=== PATIENT | female | born 1955 | race Caucasian/White ===

== ENCOUNTER 2023-01-21 13:13 | Inpatient (IN) | payer MEDICARE, SELFPAY ==
--- NOTE | ~2023-01-21 | XR_ITS ---
EXAMINATION: XR foot RT min 3V DATE: 01/21/2023 14:44 INDICATION: Right third toe pain. TECHNIQUE: 4 views of right foot were obtained. COMPARISON: None. FINDINGS: There is moderate hallux valgus. No fracture. There is moderate osteoarthritis of first met atarsophalangeal joint and mild to moderate osteoarthritis of some of the interphalangeal joints and midfoot joints. There are erosions of third distal phalanx. There are erosions of medial aspect of he ad of first metatarsal and medial aspect of navicular. There are enthesophytes at posterior and plant ar aspects of calcaneal tuberosity. There is soft tissue swelling of the foot. IMPRESSION: 1. Erosions of third distal phalanx, which may be osteomyelitis or gout. 2. Erosions of head of first metatarsal and medial navicular suspicious for gout. Correlate with phys ical exam for any skin disruption to suggest osteomyelitis. 3. Polyarticular osteoarthritis. 4. Moderate hallux valgus. Reviewed, dictated and finalized at location A. IMPRESSION: 1. Erosions of third distal phalanx, which may be osteomyelitis or gout. 2. Erosions of head of first metatarsal and medial navicular suspicious for gou t. Correlate with physical exam for any skin disruption to suggest osteomyeliti s. 3. Polyarticular osteoarthritis. 4. Moderate hallux valgus.
[2023-01-21 13:18] VITALS: BP 160/50; PULSE 80; RESP 18; TEMP 36.8; O2SAT 97
[2023-01-21 13:52] LABS: Basophils Percent Auto 0.3 % (0.2-1.2); Eosinophils Absolute Auto 0.1 K/mm3 (0-0.3); Eosinophils Percent Auto 0.9 % (0-4.4); Hematocrit 37.1 % (37.0-47.0); Hemoglobin 12.1 g/dL (12.0-15.0); Immature Granulocyte Absolute 0.05 K/mm3 (0.00-0.031); Immature Granulocyte Percent A 0.4 % (0-0.5); Lymphocytes Absolute Auto 1.59 K/mm3 (0.9-3.2); Lymphocytes Percent Auto 11.2 % (18.3-44.2); Mean Corpuscular HGB Conc 32.6 g/dl (32-36); Mean Corpuscular Hemoglobin 29.4 pg (26-34); Mean Corpuscular Volume 90.3 fl (80-100); Mean Platelet Volume 9.5 fl (7.4-10.4); Monocytes Absolute Auto 1.5 K/mm3 (0.1-0.6); Monocytes Percent Auto 10.3 % (2.6-8.5); Neutrophils Absolute Auto 10.9 K/mm3 (1.3-6.7); Neutrophils Percent Auto 76.9 % (45.5-73.1); Platelet Count Result 343 k/mm3 (150-375); Red Blood Count 4.11 M/mm3 (4.2-5.4); Red Cell Distribution Width 13.2 % (11.5-14.5); White Blood Count 14.2 K/mm3 (4.5-10.0)
[2023-01-21 14:03] LABS: Alanine Aminotransferase 24 U/L (6-35); Albumin Level 3.8 g/dL (3.5-5.1); Alkaline Phosphatase 132 U/L (38-126); Anion Gap 8 mmol/L (8-16); Aspartate Amino Transferase 28 U/L (14-36); Bilirubin,Total 0.7 mg/dL (0.2-1.3); Blood Urea Nitrogen 18 mg/dL (7-17); Calcium 8.7 mg/dL (8.4-10.2); Carbon Dioxide 35 mmol/L (22-30); Chloride 98 mmol/L (98-107); Estimated CRCL calculation 74 ml/min; Estimated Glomerular Filt Rate > 60; Glucose 178 mg/dL (65-110); Potassium 3.6 mmol/L (3.4-5.0); Sodium 141 mmol/L (137-145)
[2023-01-21] MEDS: metroNIDAZOLE 500 MG/ISO 100ML 500 MG/100 ML BAG 100 MG IVPB ×2 (14:05→22:01)
[2023-01-21] MEDS: CEFEPIME 2 GM/NS 50 ML 2 GM/50 ML BAG IVPB ×2 (14:17→23:57)
[2023-01-21 14:37] LABS: Lactic Acid Reflex 1.8 mmol/L (0.7-2.0)
[2023-01-21 14:52] LABS: CRP 17.9 mg/dL (<1.0)
--- NOTE | 2023-01-21 15:11 | ED.WOUNDLAC ---
HPI - Wound/Laceration General Chief Complaint: Wound/Laceration Stated Complaint: toe ulcer Time Seen by Provider: 01/21/23 13:38 History of Present Illness HPI narrative: This is a 67-year-old female, with past medical history of diabetes, on metformin, who presents emergency department complaining of a worsening ulcer of the right third toe. She states approximately a week and half ago, she was trimming her nails when she accidentally injured her right third toe. She developed mild redness and swelling and was placed on oral antibiotics by her primary care doctor. In the past 2 days, her foot has become significantly more erythematous and the great toe now appears gangrenous. She denies significant pain, fever, nausea, or vomiting. Related Data Allergies Allergy/AdvReac Type Severity Reaction Status Date / Time No Known Allergies Allergy Verified 01/21/23 13:36 Review of Systems Review of Systems: CONSTITUTIONAL: Denies fever, chills, or sweats. CARDIOVASCULAR: Denies chest pain, palpitations, or edema. RESPIRATORY: Denies cough or dyspnea. GASTROINTESTINAL: Denies abdominal pain, nausea, vomiting, or diarrhea. GENITOURINARY: Denies dysuria or hematuria. SKIN: Redness and swelling of the right foot with gangrene of the right third toe. Denies other rash or itching. MUSCULOSKELETAL: Denies back pain, joint pain, or myalgia. NEUROLOGIC: Denies headache, numbness, dizziness, or weakness. PSYCHIATRIC: Denies anxiety or depression. PMFSH Past Medical History Medical History Diabetes mellitus Surgical History Surgical History (Updated 01/21/23 @ 15:16 by Sharan Trotter MD) No significant past surgical history Social History Social History (Updated 01/21/23 @ 15:16 by Sharan Trotter MD) Smoking status: Former smoker Alcohol intake: never Substance use: never Exam Narrative: GENERAL: Well-developed, well-nourished, and in no acute distress. HEAD: Normocephalic, atraumatic. EYES: PERRLA and EOMI. ENT: Mucous membranes moist. CHEST: Clear to auscultation. No respiratory distress. No wheezes rales or rhonchi HEART: Regular rate and rhythm. No murmur heard. Normal peripheral pulses. ABDOMEN: Soft, nontender, nondistended, normal active bowel sounds. EXTREMITIES: The distal right third toe appears gangrenous distally from the MCP. There is erythema and swelling noted of the dorsal aspect of the right foot, extending to the ankle. There is a small amount of erythema spreading proximately from the ankle approximately 10 cm. Normal range of motion. No edema. SKIN: Skin otherwise warm, dry, no rash. NEURO: No focal deficits. Alert and oriented x3. PSYCH: Normal mood and affect. Course Course Emergency Course: 15:55 - White blood cell count elevated to 14. Chemistry is demonstrate hyperglycemia with glucose of 1.78 but are otherwise unremarkable, including a lactic acid of 1.8. Anion gap within normal limits. CRP elevated to 17.9 with a ESR of 138. X-ray shows changes consistent with osteomyelitis of the right great toe. I discussed the patient with hospitalist, MARTINA Bello, who accepts admission. Vital Signs Vital signs: Vital Signs Temperature 98.3 F 01/21/23 13:18 Pulse Rate 80 01/21/23 13:18 Respiratory Rate 18 01/21/23 13:18 Blood Pressure 160/50 H 01/21/23 13:18 Pulse Oximetry 97 01/21/23 13:18 Oxygen Delivery Room Air 01/21/23 13:18 Temperature 98.3 F 01/21/23 13:18 Pulse Rate 80 01/21/23 13:18 Respiratory Rate 18 01/21/23 13:18 Blood Pressure 160/50 H 01/21/23 13:18 Pulse Oximetry 97 01/21/23 13:18 Oxygen Delivery Room Air 01/21/23 13:18 MDM - Wound/Laceration MDM Narrative Medical decision making narrative: Plan: Labs, IV fluids, imaging, antibiotics, reassess Differential Diagnosis Differential diagnosis: Likely abscess and other (Osteomyelitis, diabetic foot ulcer,
[2023-01-21 15:18] LABS: Erythrocyte Sedimentation Rate 138 mm/hr (0-20)
--- NOTE | 2023-01-21 15:58 | PM.IMHP ---
H&P: HPI History of Present Illness Date/Time: 01/21/23 18:30 Chief Complaint: Toe infection. Narrative: This is a 67-year-old female with type 2 diabetes mellitus, hypertension, and hyperlipidemia who presented to the emergency department via private vehicle from home for evaluation of a toe infection. The patient provides the following history. Not quite 2 weeks ago she was trimming her toenails when she accidentally injured the right 3rd toe with the nail clippers. The area became red and swollen over the next couple of days and she was prescribed cephalexin by her doctor. She has been compliant with antibiotic and has soaked her foot in a mixture of peroxide, isopropyl alcohol, and Epsom salts which she admits seems to have irritated the toe. The last couple of days the toe became painful and she developed increasing swelling and redness which is now extending up the leg. Yesterday she reports that the toe started to turn black. She denies fever, chills, sweats, nausea, and vomiting. No known history of multidrug resistant organisms. She believes her diabetes is well controlled with a recent hemoglobin A1c is 6.2%; on occasion she has mild neuropathy symptoms but that is rare. She admits that she walks around barefoot quite frequently. Workup was significant for leukocytosis with a WBC count of 14.2, normal lactic acid, random glucose 178, CRP 17.9, and foot x-rays showing findings concerning for osteomyelitis or gout. She has been started on broad-spectrum antibiotics and is being admitted in this setting for IV antibiotics and surgery consultation. Review of Systems Review of Systems: Twelve systems were reviewed and are negative except for as per HPI. [facility] Past Medical History Medical History (Updated 01/21/23 @ 20:06 by Yu Farrar PA-C) Depression with anxiety Hyperlipidemia Hypertension Osteoarthritis Type 2 diabetes mellitus Surgical History Surgical History (Updated 01/21/23 @ 20:02 by Yu Farrar PA-C) History of bilateral hip replacements History of bilateral knee replacement Family History Family History Father Diabetes mellitus Mother Diabetes mellitus Afib Mother Afib Social History Social History (Updated 01/21/23 @ 20:02 by Yu Farrar PA-C) Social History: Surrogate medical decision maker: Elio Hollis, son. Code status: Full code. Smoking status: Former smoker Alcohol intake: never Substance use: never Substance use type: former substance user and marijuana Lack of Transportation: No Lack of Food: Never True Current Housing: I Have Housing Concerned About Future Housing: No Difficulty Paying Gas/Electric Bills: No Difficulty Paying for Meds: No Currently Unemployed: No Education: Don't Know Difficulty w/ Childcare or Family Care: No Additional living arrangements comments: with 2 grown children. Lives in own home in [place]. 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 Spiritual care concerns: No Meds Home Medications and Allergies Home Medications Medication Instructions Recorded Confirmed Type alprazolam 1 mg tablet 1 mg PO BID PRN Anxiety 01/21/23 01/21/23 History atenolol 25 mg tablet mg 01/21/23 History atomoxetine 80 mg capsule mg PO 01/21/23 History atorvastatin 01/21/23 History duloxetine 60 mg capsule,delayed 60 mg PO DAILY 01/21/23 01/21/23 History release furosemide 40 mg tablet mg 01/21/23 History metformin 500 mg tablet 500 mg PO BID 01/21/23 01/21/23 History phentermine 37.5 mg capsule mg 01/21/23 History trazodone 01/21/23 History Allergies Allergy/AdvReac Type Severity Reaction Status Date / Time No Known Allergies Allergy Verified 01/21/23 18:16 Vital Signs Vital Signs - 24 hr 01/21/23 13:18 Temperature 98.3 F Pulse Rate 80 Respiratory Rate 18 Blood Pressure 160/50 H Pulse Oxime
[2023-01-21 16:09] VITALS: BP 123/51; PULSE 110; RESP 18; O2SAT 99
[2023-01-21 17:16] LABS: Glucose Point of Care 143 mg/dl (65-105)
--- NOTE | 2023-01-21 17:40 | ADMGEN ---
This patient, Kaitlin Hollis, was admitted to [facility] Surg Room 309-01 at 1740. Patient/family oriented to hospital policies and general routines including ID bracelet, bed and alarms, visiting hours, pain management, procedures, bathroom and other care routines, personal items, smoking policy, room service/diet, and visiting hours. Information on how to activate the Rapid Response Team has been discussed. Patient/Family are encouraged to report perceived risks to care and to ask questions if they do not understand what they are told or what they should do.
[2023-01-21 17:51] VITALS: BMI 32.1
[2023-01-21 17:52] VITALS: BP 137/62; PULSE 72; RESP 18; TEMP 36.9; O2SAT 97
--- NOTE | 2023-01-21 18:59 | PC.NURSE ---
Pt uses mail order pharmacy and [facility]. No one able to gather pt home medications and bring them to us. Pt states we can call my MD on her personal home phone to ask meds.
[2023-01-21 20:00] VITALS: PULSE 72; RESP 18; O2SAT 97
[2023-01-21 20:33] LABS: Hemoglobin A1C 5.6 % (<5.7)
[2023-01-21 21:11] LABS: Glucose Point of Care 98 mg/dl (65-105)
[2023-01-21 22:00] VITALS: BP 124/53; PULSE 65; RESP 16; TEMP 36.8; O2SAT 97
[2023-01-21] MEDS: MORPHINE SULFATE (*CRX) 4 MG/ML INJ 2 MG IV PUSH (22:00)
[2023-01-22] MEDS: metroNIDAZOLE 500 MG/ISO 100ML 500 MG/100 ML BAG 100 MG IVPB ×3 (05:44→21:11)
[2023-01-22] MEDS: MORPHINE SULFATE (*CRX) 4 MG/ML INJ 2 MG IV PUSH ×2 (05:58→13:01)
[2023-01-22 06:00] VITALS: BP 131/59; PULSE 63; RESP 18; TEMP 36; O2SAT 96
[2023-01-22 06:50] LABS: Basophils Percent Auto 0.3 % (0.2-1.2); Eosinophils Absolute Auto 0.3 K/mm3 (0-0.3); Eosinophils Percent Auto 2.7 % (0-4.4); Hematocrit 34.6 % (37.0-47.0); Immature Granulocyte Absolute 0.04 K/mm3 (0.00-0.031); Immature Granulocyte Percent A 0.4 % (0-0.5); Lymphocytes Absolute Auto 1.83 K/mm3 (0.9-3.2); Lymphocytes Percent Auto 19.2 % (18.3-44.2); Mean Corpuscular HGB Conc 31.8 g/dl (32-36); Mean Corpuscular Hemoglobin 28.9 pg (26-34); Mean Corpuscular Volume 91.1 fl (80-100); Mean Platelet Volume 9.4 fl (7.4-10.4); Monocytes Absolute Auto 1.1 K/mm3 (0.1-0.6); Monocytes Percent Auto 11.8 % (2.6-8.5); Neutrophils Absolute Auto 6.2 K/mm3 (1.3-6.7); Neutrophils Percent Auto 65.6 % (45.5-73.1); Platelet Count Result 317 k/mm3 (150-375); Red Cell Distribution Width 13.2 % (11.5-14.5); White Blood Count 9.5 K/mm3 (4.5-10.0)
[2023-01-22 06:59] LABS: Anion Gap 4 mmol/L (8-16); Blood Urea Nitrogen 16 mg/dL (7-17); Calcium 8.5 mg/dL (8.4-10.2); Carbon Dioxide 36 mmol/L (22-30); Chloride 99 mmol/L (98-107); Estimated CRCL calculation 86 ml/min; Estimated Glomerular Filt Rate > 60; Glucose 120 mg/dL (65-110); Magnesium 2.4 mg/dL (1.6-2.3); Potassium 3.8 mmol/L (3.4-5.0); Sodium 139 mmol/L (137-145)
[2023-01-22 07:53] LABS: Glucose Point of Care 137 mg/dl (65-105)
[2023-01-22 08:54] VITALS: O2SAT 91
[2023-01-22] MEDS: CEFEPIME 2 GM/NS 50 ML 2 GM/50 ML BAG IVPB (11:34)
[2023-01-22 11:41] LABS: Glucose Point of Care 159 mg/dl (65-105)
--- NOTE | 2023-01-22 13:51 | WPDCN ---
Assessment and Plan Assessment and plan (1) Cellulitis of third toe of right foot: Code(s): L03.031 - Cellulitis of right toe Status: Acute Assessment and Plan: Patient has gangrenous changes to the right 3rd toe with cellulitis of the right forefoot at the 3rd metatarsal phalangeal joint. The toe cannot be salvaged. We will plan on proceeding with amputation of the right 3rd toe. Remain on IV antibiotics for now. She has good palpable right foot pulses in the dorsalis pedis and posterior tibial areas and so she should be able to heal this wound with secondary intention. HPI Data of Consult Date/Time: 01/22/23 13:52 Requesting Physician: Gorge Hale MD Primary Care Provider: PHYSICIAN NOT ON STAFF Consult Narrative Reason for consult: Right foot cellulitis and necrosis of right 3rd toe. Narrative: Kaitlin Hollis is a 67 year old female who was admitted to the hospital yesterday with cellulitis of the right 3rd toe and gangrenous change changes of the right 3rd toe. She states that couple of weeks ago she tried trimming her toenails and suffered a wound on her right 3rd toe. She was seen by primary care physician who placed her on some Keflex and she was soaking her right foot in Epsom salts. Unfortunately the infection progressed despite the oral antibiotics and she has now noticed gangrenous changes in the toe. She had elevated white blood count 20103 which can emergency room. X-ray show erosions of the right 3rd metatarsal head suggestive either gout or osteomyelitis. She has not had any prior toe amputations. Her she is a eda-qgngeqw-bkfrygjwi diabetic with her last hemoglobin A1c being about 6.2. Review of Systems Review of Systems: The remainder of the review of systems to include constitutional, HEENT, cardiovascular, respiratory, GI, , integumentary, musculoskeletal, endocrine, immunologic, hematologic, psychiatric, and neurologic are all negative except for which is mentioned above in the HPI. [facility] Past Medical History Medical History Depression with anxiety Hyperlipidemia Hypertension Osteoarthritis Type 2 diabetes mellitus Surgical History Surgical History History of bilateral hip replacements History of bilateral knee replacement Family History Family History Father Diabetes mellitus Mother Diabetes mellitus Afib Mother Afib Social History Social History Social History: Surrogate medical decision maker: Elio Hollis, son. Code status: Full code. Smoking status: Former smoker Alcohol intake: never Substance use: never Substance use type: former substance user and marijuana Lack of Transportation: No Lack of Food: Never True Current Housing: I Have Housing Concerned About Future Housing: No Difficulty Paying Gas/Electric Bills: No Difficulty Paying for Meds: No Currently Unemployed: No Education: Don't Know Difficulty w/ Childcare or Family Care: No Additional living arrangements comments: with 2 grown children. Lives in own home in [place]. 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 Spiritual care concerns: No Meds Home Medications and Allergies Home Medications Medication Instructions Recorded Confirmed Type alprazolam 1 mg tablet 1 mg PO BID PRN Anxiety 01/21/23 01/21/23 History atenolol 25 mg tablet 25 mg PO QHS 01/21/23 01/21/23 History atorvastatin 40 mg tablet 40 mg PO HS 01/21/23 01/21/23 History duloxetine 60 mg capsule,delayed 60 mg PO DAILY 01/21/23 01/21/23 History release famotidine 20 mg tablet 20 mg PO BID 01/21/23 01/21/23 History metformin 500 mg tablet 500 mg PO BID 01/21/23 01/21/23 History potassium 20 mg chewable tablet 20 mg PO BID 01/21/23
[2023-01-22 14:00] VITALS: BP 128/77; PULSE 62; RESP 16; TEMP 36.5; O2SAT 99
--- NOTE | 2023-01-22 15:22 | WPDPN ---
Progress Note: A&P Assessment and Plan (1) Osteomyelitis of third toe of right foot: Code(s): M86.9 - Osteomyelitis, unspecified Status: Acute (2) Diabetic foot infection: Code(s): E11.628 - Type 2 diabetes mellitus with other skin complications; L08.9 - Local infection of the skin and subcutaneous tissue, unspecified Status: Acute (3) Cellulitis of third toe of right foot: Code(s): L03.031 - Cellulitis of right toe Status: Acute (4) Type 2 diabetes mellitus: Code(s): E11.9 - Type 2 diabetes mellitus without complications Status: Acute (5) Hypertension: Code(s): I10 - Essential (primary) hypertension Status: Acute (6) Hyperlipidemia: Code(s): E78.5 - Hyperlipidemia, unspecified Status: Acute (7) Depression with anxiety: Code(s): F41.8 - Other specified anxiety disorders Status: Acute Plan The patient presented to the ED for evaluation of a right 3rd toe wound which has been present for approximately 10 days and is worsening despite oral antibiotics as per HPI. Labs, imaging, EKG, and all reports were personally reviewed. The tip of that toe appears necrotic with surrounding cellulitis and there are findings suggestive of osteomyelitis on x-ray. She has been started on cefepime, metronidazole, and vancomycin per antibiotic stewardship recommendations. Surgery has been consulted as she will likely need amputation of that toe. Patient reports that her diabetes is well controlled with a reported recent A1c of 6.2%. We discussed the importance of keeping her diabetes under good control for wound healing and wearing shoes to avoid injuries that might go unnoticed with diabetes and neuropathy. Blood pressures were reviewed and they are stable. Her home medications will be reviewed and resumed as appropriate. 01/22/2023 interval history: patient with history DM accident injured her 3rd righ middle toe and now has developed necrosis and scan is suspicous for OM, started on Cefepime, flagyl and vancomycin, patient will be seen by surgeon and further recommendation to follow, will continue to monitor, Subjective Date/time seen: 01/22/23 15:22 Interval history: Toe infection. HPI-Narrative: This is a 67-year-old female with type 2 diabetes mellitus, hypertension, and hyperlipidemia who presented to the emergency department via private vehicle from home for evaluation of a toe infection. The patient provides the following history. Not quite 2 weeks ago she was trimming her toenails when she accidentally injured the right 3rd toe with the nail clippers. The area became red and swollen over the next couple of days and she was prescribed cephalexin by her doctor. She has been compliant with antibiotic and has soaked her foot in a mixture of peroxide, isopropyl alcohol, and Epsom salts which she admits seems to have irritated the toe. The last couple of days the toe became painful and she developed increasing swelling and redness which is now extending up the leg. Yesterday she reports that the toe started to turn black. She denies fever, chills, sweats, nausea, and vomiting. No known history of multidrug resistant organisms. She believes her diabetes is well controlled with a recent hemoglobin A1c is 6.2%; on occasion she has mild neuropathy symptoms but that is rare. She admits that she walks around barefoot quite frequently. Workup was significant for leukocytosis with a WBC count of 14.2, normal lactic acid, random glucose 178, CRP 17.9, and foot x-rays showing findings concerning for osteomyelitis or gout. She has been started on broad-spectrum antibiotics and is being admitted in this setting for IV antibiotics and surgery consultation. 01/22/2023 interval history: patient with history DM accident injured her 3rd righ middle toe and now has developed necrosis and scan is suspicous for OM, started on Cefepime, flagyl and vancomycin, patient will be seen by surgeon and further
[2023-01-22 16:53] LABS: Glucose Point of Care 133 mg/dl (65-105)
[2023-01-22 20:35] VITALS: PULSE 60; RESP 16; O2SAT 98
[2023-01-22 21:29] VITALS: O2SAT 93
[2023-01-22 22:00] VITALS: BP 141/56; PULSE 60; RESP 16; TEMP 36.7; O2SAT 98
[2023-01-22 23:00] LABS: Glucose Point of Care 107 mg/dl (65-105)
[2023-01-23] VITALS (14 sets, daily range): BP systolic 90–156; BP diastolic 50–66; PULSE 55–72; RESP 10–20; TEMP 35.8–36.8; O2SAT 95–100
[2023-01-23] MEDS: CEFEPIME 2 GM/NS 50 ML 2 GM/50 ML BAG IVPB ×3 (00:31→23:26)
[2023-01-23] MEDS: metroNIDAZOLE 500 MG/ISO 100ML 500 MG/100 ML BAG 100 MG IVPB ×3 (06:07→21:44)
[2023-01-23 07:22] LABS: Hematocrit 37.4 % (37.0-47.0); Hemoglobin 12.1 g/dL (12.0-15.0); Mean Corpuscular HGB Conc 32.4 g/dl (32-36); Mean Corpuscular Hemoglobin 29.3 pg (26-34); Mean Corpuscular Volume 90.6 fl (80-100); Mean Platelet Volume 9.4 fl (7.4-10.4); Platelet Count Result 377 k/mm3 (150-375); Red Blood Count 4.13 M/mm3 (4.2-5.4); Red Cell Distribution Width 13.2 % (11.5-14.5); White Blood Count 9.8 K/mm3 (4.5-10.0)
[2023-01-23 07:29] LABS: Anion Gap 5 mmol/L (8-16); Blood Urea Nitrogen 13 mg/dL (7-17); CRP 6.8 mg/dL (<1.0); Calcium 8.9 mg/dL (8.4-10.2); Carbon Dioxide 33 mmol/L (22-30); Chloride 101 mmol/L (98-107); Estimated CRCL calculation 100 ml/min; Estimated Glomerular Filt Rate > 60; Glucose 135 mg/dL (65-110); Magnesium 2.3 mg/dL (1.6-2.3); Potassium 3.8 mmol/L (3.4-5.0); Sodium 139 mmol/L (137-145)
--- NOTE | 2023-01-23 07:33 | WPDANESEPPF ---
Anes - Initial Pre Proc Eval Procedure: Operation Date: 01/23/23 07:30 Proposed Procedures p Right Third Toe Amputation - Troy Suarez MD Date/Time: 01/23/23 07:33 Surgeon: Gorge Hale MD Pre Op Diagnosis: Osteomyelitis of Right 3rd Toe Patient Data Age: 67 Gender: F Height: 1.65 m Weight: 86.1 kg Last Vital Signs Temp 36.6 C 01/23/23 07:16 Pulse 68 01/23/23 07:16 Resp 16 01/23/23 07:16 BP 148/65 H 01/23/23 07:16 Pulse Ox 98 01/23/23 07:16 O2 Del Method Room Air 01/22/23 21:29 Allergies Allergy/AdvReac Type Severity Reaction Status Date / Time No Known Allergies Allergy Verified 01/21/23 18:16 Home Medications Medication Instructions Recorded Confirmed Type alprazolam 1 mg tablet 1 mg PO BID PRN Anxiety 01/21/23 01/21/23 History atenolol 25 mg tablet 25 mg PO QHS 01/21/23 01/21/23 History atorvastatin 40 mg tablet 40 mg PO HS 01/21/23 01/21/23 History duloxetine 60 mg capsule,delayed 60 mg PO DAILY 01/21/23 01/21/23 History release famotidine 20 mg tablet 20 mg PO BID 01/21/23 01/21/23 History metformin 500 mg tablet 500 mg PO BID 01/21/23 01/21/23 History potassium 20 mg chewable tablet 20 mg PO BID 01/21/23 01/21/23 History trazodone 100 mg tablet 100 mg PO HS 01/21/23 01/21/23 History triamterene 37.5 1 tablet PO DAILY 01/21/23 01/22/23 History mg-hydrochlorothiazide 25 mg tablet Laboratory Tests 01/22/23 01/22/23 01/22/23 07:41 11:33 16:50 WBC RBC Hgb Hct MCV MCH MCHC RDW Plt Count MPV Sodium Potassium Chloride Carbon Dioxide Anion Gap BUN Creatinine Estim Creat Clear Calc Estimated GFR Glucose POC Capillary Glucose 137 H mg/dl 159 H mg/dl 133 H mg/dl (65-105) (65-105) (65-105) Calcium Magnesium C-Reactive Protein 01/22/23 01/23/23 21:22 06:35 WBC 9.8 K/mm3 (4.5-10.0) RBC 4.13 L M/mm3 (4.2-5.4) Hgb 12.1 g/dL (12.0-15.0) Hct 37.4 % (37.0-47.0) MCV 90.6 fl (80-100) MCH 29.3 pg (26-34) MCHC 32.4 g/dl (32-36) RDW 13.2 % (11.5-14.5) Plt Count 377 H k/mm3 (150-375) MPV 9.4 fl (7.4-10.4) Sodium 139 mmol/L (137-145) Potassium 3.8 mmol/L (3.4-5.0) Chloride 101 mmol/L (98-107) Carbon Dioxide 33 H mmol/L (22-30) Anion Gap 5 L mmol/L (8-16) BUN 13 mg/dL (7-17) Creatinine 0.50 L mg/dL (0.7-1.0) Estim Creat Clear Calc 100 ml/min Estimated GFR > 60 (59 - ) Glucose 135 H mg/dL (65-110) POC Capillary Glucose 107 H mg/dl (65-105) Calcium 8.9 mg/dL (8.4-10.2) Magnesium 2.3 mg/dL (1.6-2.3) C-Reactive Protein 6.8 H mg/dL (<1.0) Patient hx anesthesia problems: none Family hx anesthesia problems: none Results Review: All pre-operative results and documents have been reviewed as part of the pre-operative evaluation. [facility] Past Medical History Medical History Depression with anxiety Hyperlipidemia Hypertension Osteoarthritis Type 2 diabetes mellitus Surgical History Surgical History History of bilateral hip replacements History of bilateral knee replacement Family History Family History Father Diabetes mellitus Mother Diabetes mellitus Afib Mother Afib Social History Social History Social History: Surrogate medical decision maker: Elio Hollis, son. Code status: Full code. Smoking status: Former smoke
--- NOTE | 2023-01-23 07:34 | WPDHPUPDATE1 ---
History and Physical Update Update Date/Time: 01/23/23 07:34 History and Physical has been reviewed, including an updated exam of the patient. There are NO changes in the patient's condition. Risks, benefits, and alternatives have been discussed and questions answered. Patient agrees to proceed with procedure.
[2023-01-23] MEDS: BUPivacaine HCL 0.5% PF 30 ML VIAL 15 ML INFILTRATE (08:11)
[2023-01-23] MEDS: LACTATED RINGERS 1,000 ML 30 ML IV CONT (08:28)
--- NOTE | 2023-01-23 08:40 | W.PM.PROC2 ---
Procedure Note - Detailed Date of Procedure 01/23/23 Pre-op Diagnosis Osteomyelitis of Right 3rd Toe, gangrene right 3rd toe Post-op Diagnosis Same Procedure Performed Amputation right 3rd toe Surgeon Troy Suarez MD [employer] Developer Hannah Sanchez FIELD LOGISTICS COORDINATOR Anesthesia General Indications The patient is a 67-year-old female who is a non-insulin diabetic. She trim her own toenails few days ago and developed a wound on her right 3rd toe. Her primary care physician placed her on some oral antibiotics but it failed to treat the infection. She have increasing redness and pain and then developed black gangrene of the toe. She was admitted to the hospital and it appears she has cellulitis and by imaging had osteomyelitis. She presents now for amputation of the right 3rd toe. Findings There was purulence within the proximal PIP joint of the right 3rd toe. The 3rd MP joint was free of any purulence. The 3rd metatarsal head was normal appearance without any ulceration or erosions. The distal 2/3 of the right 3rd toe was gangrenous with dry and wet gangrene. Remaining toes the right foot were all viable. Description of Procedure After informed consent was obtained patient brought to the operating where she was placed into the supine position on operating table. Anesthesia then placed under general anesthesia and then the right lower extremity from the mid tibia area distally was prepped and draped circumferentially usual sterile fashion. A time-out was then performed correctly identifying the patient as well as procedure to be performed verifying the site marking. She was already on scheduled IV antibiotics. I then proceeded to make a circumferential incision with a scalpel at the base of the right 3rd toe. I dissected down through the subcutaneous tissues and down through the extensor and flexor tendons sharply with the scalpel. I then entered the right 3rd PIP joint and there was necrosis and pus within this joint space. I then disarticulated the distal get portion of the gangrenous toe through this joint space. This part of the toe was sent to pathology for examination. The more proximal portion the 3rd proximal phalanx the MP joint was then removed sharply with a scalpel by cutting through the MP joint. This portion of the joint and bone appeared to be normal without any evidence of infection and necrosis. This portion of bowel was sent to pathology as well. I then irrigated out the wound with copious sterile saline solution. There was no purulence. Small amount of necrotic tissue and skin was then cut away with scissors. The remaining tissue appeared to be healthy and lead at the edges. I then achieved hemostasis in the skin edges utilizing electrocautery. Loosely closed some of the surrounding subcutaneous tissues over the head of the 3rd and metatarsal. I then packed the wound with quarter-inch iodoform gauze after a injected local anesthetic mixture consisting of 0.5% Marcaine without epinephrine around the wound for postoperative pain. This is then followed by placement of dry 4x4 gauze and Kerlix gauze around the wound and right forefoot. An Morgan wrap was used to hold the gauze dressing in place. The patient tolerated the procedure well no complications. All sponges, needles, and instrument counts were correct at the end procedure. EBL was _15__cc. The patient was awakened and taken to recovery in stable and satisfactory condition. Implants None Estimated Blood Loss 15 Urine Output 900 Drains No Packing Yes (Quarter-inch iodoform gauze and right 3rd toe amputation wound) Pathology Yes (Right 3rd toe to pathology) Complications No immediate complications Condition Stable Disposition PACU [facility] Billing Surgery - Charge Forward: Surgery Billing
[2023-01-23 08:43] LABS: Glucose Point of Care 126 mg/dl (65-105)
[2023-01-23] MEDS: ONDANSETRON INJ 4 MG/2 ML VIAL IV PUSH (10:52)
[2023-01-23 11:56] LABS: Glucose Point of Care 195 mg/dl (65-105)
--- NOTE | 2023-01-23 11:58 | PC.NURSE ---
Oral meds help due to patient c/o nausea since she returned from surgery. Dr Hale notified
[2023-01-23] MEDS: PROCHLORPERAZINE MALEATE 5 MG TABLET 10 MG PO (12:27)
[2023-01-23] MEDS: FAMOTIDINE 20 MG TABLET PO (13:54)
[2023-01-23] MEDS: DULoxetine HCL 60 MG CAPSULE.DR PO (13:54)
[2023-01-23] MEDS: metFORMIN HCL 500 MG TABLET PO (13:54)
[2023-01-23] MEDS: ALPRAZolam (*CRX) 0.5 MG TABLET 1 MG PO (13:59)
--- NOTE | 2023-01-23 14:08 | WPDPN ---
Progress Note: A&P Assessment and Plan (1) Osteomyelitis of third toe of right foot: Code(s): M86.9 - Osteomyelitis, unspecified Status: Acute (2) Diabetic foot infection: Code(s): E11.628 - Type 2 diabetes mellitus with other skin complications; L08.9 - Local infection of the skin and subcutaneous tissue, unspecified Status: Acute (3) Cellulitis of third toe of right foot: Code(s): L03.031 - Cellulitis of right toe Status: Acute (4) Type 2 diabetes mellitus: Code(s): E11.9 - Type 2 diabetes mellitus without complications Status: Acute (5) Hypertension: Code(s): I10 - Essential (primary) hypertension Status: Acute (6) Hyperlipidemia: Code(s): E78.5 - Hyperlipidemia, unspecified Status: Acute (7) Depression with anxiety: Code(s): F41.8 - Other specified anxiety disorders Status: Acute Plan The patient presented to the ED for evaluation of a right 3rd toe wound which has been present for approximately 10 days and is worsening despite oral antibiotics as per HPI. Labs, imaging, EKG, and all reports were personally reviewed. The tip of that toe appears necrotic with surrounding cellulitis and there are findings suggestive of osteomyelitis on x-ray. She has been started on cefepime, metronidazole, and vancomycin per antibiotic stewardship recommendations. Surgery has been consulted as she will likely need amputation of that toe. Patient reports that her diabetes is well controlled with a reported recent A1c of 6.2%. We discussed the importance of keeping her diabetes under good control for wound healing and wearing shoes to avoid injuries that might go unnoticed with diabetes and neuropathy. Blood pressures were reviewed and they are stable. Her home medications will be reviewed and resumed as appropriate. 01/23/2023 interval history: patient with history DM accidentally injured her 3rd right middle toe and now has developed necrosis and scan is suspicous for OM, started on Cefepime, flagyl and vancomycin, patient was seen by surgeon, stated unable to salvage the toe and today patient had amputation of her right 3rf toe, will follow up, will continue to monitor, Subjective Date/time seen: 01/23/23 14:08 Interval history: The patient presented to the ED for evaluation of a right 3rd toe wound which has been present for approximately 10 days and is worsening despite oral antibiotics as per HPI. Labs, imaging, EKG, and all reports were personally reviewed. The tip of that toe appears necrotic with surrounding cellulitis and there are findings suggestive of osteomyelitis on x-ray. She has been started on cefepime, metronidazole, and vancomycin per antibiotic stewardship recommendations. Surgery has been consulted as she will likely need amputation of that toe. Patient reports that her diabetes is well controlled with a reported recent A1c of 6.2%. We discussed the importance of keeping her diabetes under good control for wound healing and wearing shoes to avoid injuries that might go unnoticed with diabetes and neuropathy. Blood pressures were reviewed and they are stable. Her home medications will be reviewed and resumed as appropriate. 01/23/2023 interval history: patient with history DM accidentally injured her 3rd right middle toe and now has developed necrosis and scan is suspicous for OM, started on Cefepime, flagyl and vancomycin, patient was seen by surgeon, stated unable to salvage the toe and today patient had amputation of her right 3rf toe, will follow up, will continue to monitor, Review of Systems Review of Systems: Twelve systems were reviewed and are negative except for as per HPI. Exam Narrative: Patient is comfortable, NAD HEENT: eyes are clear and none icteric LUNGS: Normal respiratory effort ABD: Distended Lower extremities: no edema SKIN: nonjaundiced Rt foot middle toe, distal and middle phalanx necrotic. Neuro: celsa
[2023-01-23] MEDS: POTASSIUM CHLORIDE 20 MEQ ER TABLET PO (16:40)
[2023-01-23 16:58] LABS: Glucose Point of Care 106 mg/dl (65-105)
[2023-01-23] MEDS: ATORVASTATIN 40 MG TABLET PO (20:34)
[2023-01-23] MEDS: traZODone HCL 50 MG TABLET 100 MG PO (20:34)
[2023-01-23] MEDS: atenoloL 25 MG TABLET PO (20:35)
[2023-01-23 20:38] LABS: Glucose Point of Care 88 mg/dl (65-105)
[2023-01-23] MEDS: HYDROcodone/acetaminophen (*CRX) 5-325 MG TABLET 1 TAB PO (21:46)
[2023-01-23 21:48] LABS: Vancomycin Trough 7.3 ug/mL (10.0-20.0)
[2023-01-23] MEDS: VANCOMYCIN 1,250 MG/NS 250 ML 1,250 MG/250 ML BAG 166.67 MG IVPB (22:25)
[2023-01-24 00:08] VITALS: BP 126/61; PULSE 57; RESP 17; TEMP 35.6; O2SAT 97
[2023-01-24] MEDS: ALPRAZolam (*CRX) 0.5 MG TABLET 1 MG PO ×2 (00:39→07:38)
[2023-01-24 03:35] VITALS: BP 112/58; PULSE 56; RESP 16; TEMP 37.1; O2SAT 97
[2023-01-24] MEDS: metroNIDAZOLE 500 MG/ISO 100ML 500 MG/100 ML BAG 100 MG IVPB ×3 (05:45→21:00)
[2023-01-24] MEDS: VANCOMYCIN 1,250 MG/NS 250 ML 1,250 MG/250 ML BAG 166 MG IVPB ×3 (05:45→22:06)
[2023-01-24 06:45] LABS: Hematocrit 34.3 % (37.0-47.0); Hemoglobin 10.7 g/dL (12.0-15.0); Mean Corpuscular HGB Conc 31.2 g/dl (32-36); Mean Corpuscular Hemoglobin 28.6 pg (26-34); Mean Corpuscular Volume 91.7 fl (80-100); Mean Platelet Volume 9.4 fl (7.4-10.4); Platelet Count Result 361 k/mm3 (150-375); Red Blood Count 3.74 M/mm3 (4.2-5.4); Red Cell Distribution Width 13.2 % (11.5-14.5); White Blood Count 9.8 K/mm3 (4.5-10.0)
[2023-01-24 06:54] LABS: Anion Gap 4 mmol/L (8-16); Blood Urea Nitrogen 11 mg/dL (7-17); CRP 4.6 mg/dL (<1.0); Calcium 8.8 mg/dL (8.4-10.2); Carbon Dioxide 33 mmol/L (22-30); Chloride 104 mmol/L (98-107); Estimated CRCL calculation 88 ml/min; Estimated Glomerular Filt Rate > 60; Glucose 115 mg/dL (65-110); Magnesium 2.2 mg/dL (1.6-2.3); Potassium 4.3 mmol/L (3.4-5.0); Sodium 141 mmol/L (137-145)
[2023-01-24] MEDS: HYDROcodone/acetaminophen (*CRX) 5-325 MG TABLET 1 TAB PO ×2 (07:37→19:33)
[2023-01-24] MEDS: metFORMIN HCL 500 MG TABLET PO ×2 (07:37→15:56)
[2023-01-24] MEDS: PROCHLORPERAZINE MALEATE 5 MG TABLET 10 MG PO (07:37)
[2023-01-24] MEDS: FAMOTIDINE 20 MG TABLET PO ×2 (07:37→15:56)
[2023-01-24] MEDS: DULoxetine HCL 60 MG CAPSULE.DR PO (07:37)
[2023-01-24 08:00] VITALS: O2SAT 97
[2023-01-24 08:20] LABS: Glucose Point of Care 100 mg/dl (65-105)
--- NOTE | 2023-01-24 08:32 | PM.PNGS ---
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 Doing well. Continue IV antibiotics today. Continue working with therapy and ambulating with a walker and postop shoe. We will plan on managing her through the wound clinic postoperatively. Case management to arrange for home health dressing changes daily. Likely home tomorrow on oral antibiotics. Subjective Subjective Date/Time Seen: 01/24/23 08:32 Post Op day: 1 Interval history: Patient postop day 1 after amputation of right 3rd toe for gangrenous changes. No complaints. Is walking with a postop shoe in place with physical therapy and occupational therapy. Case management working on home health for dressing change. Exam Extrem: Other: Right foot amputation wound clean. Small amount of old blood on the dressing. No purulent drainage. She is able to move all the remaining toes on right foot. No redness on the right forefoot. Objective Data Vital Signs Vital Signs: Vital Signs - 24 hr 01/23/23 08:40 01/23/23 08:51 01/23/23 08:55 Temperature Pulse Rate 66 68 Respiratory Rate 16 20 Blood Pressure 141/66 H 137/64 Pulse Oximetry 100 98 98 Oxygen Delivery Simple Face Mask Room Air Room Air Oxygen Flow Rate 10 01/23/23 09:05 01/23/23 09:29 01/23/23 09:15 Temperature 36.6 C Pulse Rate 66 61 Respiratory Rate 18 16 Blood Pressure 142/59 H 130/64 Pulse Oximetry 97 97 95 Oxygen Delivery Room Air Room Air Oxygen Flow Rate 01/23/23 09:30 01/23/23 10:00 01/23/23 12:28 Temperature 36.3 C L 36.4 C 36.6 C Pulse Rate 68 65 67 Respiratory Rate 16 16 16 Blood Pressure 144/64 H 146/60 H 145/56 H Pulse Oximetry 99 98 98 Oxygen Delivery Oxygen Flow Rate 01/23/23 16:00 01/23/23 20:03 01/24/23 00:08 Temperature 36.4 C L 35.8 C L 35.6 C L Pulse Rate 66 72 57 L Respiratory Rate 16 18 17 Blood Pressure 132/56 L 132/64 126/61 Pulse Oximetry 100 99 97 Oxygen Delivery Oxygen Flow Rate 01/24/23 03:35 Temperature 37.1 C Pulse Rate 56 L Respiratory Rate 16 Blood Pressure 112/58 L Pulse Oximetry 97 Oxygen Delivery Oxygen Flow Rate Intake/Output Intake/Output: Intake & Output 01/21/23 01/22/23 01/23/23 01/24/23 23:59 23:59 23:59 23:59 Intake Total 750 1840 1690 350 Output Total 400 1800 0 Balance 750 1440 -110 350 Meds/Results Medications: Active Medications Generic Name Dose Route Start Last Admin Trade Name Freq PRN Reason Stop Dose Admin Acetaminophen 650 mg 01/21/23 15:51 Acetaminophen 325 Mg Tablet PO Q4H PRN Mild Pain (1-3) or Fever Hydrocodone Bitart/Acetaminophen 1 tab 01/23/23 08:33 01/24/23 07:37 Hydrocodone/Acetaminophen (*Crx) 5-325 Mg Tablet PO 1 tab Q6H PRN Administration Pain Rated 4-6 Alprazolam 1 mg 01/23/23 09:07 01/24/23 07:38 Alprazolam (*Crx) 0.5 Mg Tablet PO 1 mg BID PRN Administration Anxiety Atenolol 25 mg 01/23/23 21:00 01/23/23 20:35 Atenolol 25 Mg Tablet PO 25 mg QHS TIFF Administration Atorvastatin Calcium 40 mg 01/23/23 21:00 01/23/23 20:34 Atorvastatin 40 Mg Tablet PO 40 mg HS TIFF Administration Dextrose 12.5 gm 01/21/23 20:09 Dextrose 50% 25 Gm/50 Ml Syringe IV PUSH PRN PRN Hypoglycemia Protocol Duloxetine HCl 60 mg 01/23/23 09:07 01/24/23 07:37 Duloxetine Hcl 60 Mg Capsule.Dr PO 60 mg DAILY TIFF Administration Famotidine 20 mg 01/23/23 09:07 01/24/23 07:37 Famotidine 20 Mg Tablet PO 20 mg BID TIFF Administration Glucagon 1 mg 01/21/23 20:09 Glucagon For Inj 1 Mg Vial IM PRN PRN Hypoglycemia Protocol Glucose 15 gm 01/21/23 20:09 Glucose Oral Gel 15 Gm Of Glucse In 37.5 Gm Tube PO PRN PRN Hypoglycemia Protocol Dextrose 1,000 mls @ 100 mls/h
[2023-01-24 11:41] LABS: Glucose Point of Care 87 mg/dl (65-105)
--- NOTE | 2023-01-24 11:57 | PCPTNOTE ---
On 01/24/23, the student, CHRIST Bowen, provided care and completed [facility] documentation on this patient. I have reviewed the student's documentation and agree with the findings.
[2023-01-24] MEDS: CEFEPIME 2 GM/NS 50 ML 2 GM/50 ML BAG IVPB (12:20)
[2023-01-24 14:00] VITALS: BP 108/62; PULSE 58; RESP 16; TEMP 37; O2SAT 99
--- NOTE | 2023-01-24 14:22 | WPDANESPN ---
Anes - Prog Note Post-Op Date/Time: 01/24/23 14:22 Cardiovascular status: normal Respiratory status: normal Airway patency: baseline Mental status: baseline Post-Op hydration status: normal Vital Signs: Last Vital Signs Temp 98.8 F 01/24/23 03:35 Pulse 56 L 01/24/23 03:35 Resp 16 01/24/23 03:35 BP 112/58 L 01/24/23 03:35 Pulse Ox 97 01/24/23 08:00 O2 Del Method Room Air 01/24/23 08:17 O2 Flow Rate 10 01/23/23 08:40 Pain Score (VAS): 0/10 I/O: Intake & Output 01/23/23 01/24/23 01/24/23 23:59 07:59 15:59 Intake Total 950 350 240 Output Total 0 Balance 950 350 240 Laboratory Tests 01/24/23 06:10 01/24/23 06:10 01/23/23 01/23/23 01/23/23 16:55 20:33 20:44 WBC RBC Hgb Hct MCV MCH MCHC RDW Plt Count MPV Sodium Potassium Chloride Carbon Dioxide Anion Gap BUN Creatinine Estim Creat Clear Calc Estimated GFR Glucose POC Capillary Glucose 106 H 88 Calcium Magnesium C-Reactive Protein Vancomycin Trough 7.3 L 01/24/23 01/24/23 01/24/23 06:10 07:51 11:37 WBC 9.8 RBC 3.74 L Hgb 10.7 L Hct 34.3 L MCV 91.7 MCH 28.6 MCHC 31.2 L RDW 13.2 Plt Count 361 MPV 9.4 Sodium 141 Potassium 4.3 Chloride 104 Carbon Dioxide 33 H Anion Gap 4 L BUN 11 Creatinine 0.60 L Estim Creat Clear Calc 88 Estimated GFR > 60 Glucose 115 H POC Capillary Glucose 100 87 Calcium 8.8 Magnesium 2.2 C-Reactive Protein 4.6 H Vancomycin Trough Post-procedural complaints: none Patient Feedback: Patient satisfied with anesthetic care.
--- NOTE | 2023-01-24 14:58 | WPDPN ---
Progress Note: A&P Assessment and Plan (1) Osteomyelitis of third toe of right foot: Code(s): M86.9 - Osteomyelitis, unspecified Status: Acute (2) Diabetic foot infection: Code(s): E11.628 - Type 2 diabetes mellitus with other skin complications; L08.9 - Local infection of the skin and subcutaneous tissue, unspecified Status: Acute (3) Cellulitis of third toe of right foot: Code(s): L03.031 - Cellulitis of right toe Status: Acute (4) Type 2 diabetes mellitus: Code(s): E11.9 - Type 2 diabetes mellitus without complications Status: Acute (5) Hypertension: Code(s): I10 - Essential (primary) hypertension Status: Acute (6) Hyperlipidemia: Code(s): E78.5 - Hyperlipidemia, unspecified Status: Acute (7) Depression with anxiety: Code(s): F41.8 - Other specified anxiety disorders Status: Acute Plan The patient presented to the ED for evaluation of a right 3rd toe wound which has been present for approximately 10 days and is worsening despite oral antibiotics as per HPI. Labs, imaging, EKG, and all reports were personally reviewed. The tip of that toe appears necrotic with surrounding cellulitis and there are findings suggestive of osteomyelitis on x-ray. She has been started on cefepime, metronidazole, and vancomycin per antibiotic stewardship recommendations. Surgery has been consulted as she will likely need amputation of that toe. Patient reports that her diabetes is well controlled with a reported recent A1c of 6.2%. We discussed the importance of keeping her diabetes under good control for wound healing and wearing shoes to avoid injuries that might go unnoticed with diabetes and neuropathy. Blood pressures were reviewed and they are stable. Her home medications will be reviewed and resumed as appropriate. 01/24/2023 interval history: patient with history DM accidentally injured her 3rd right middle toe and now has developed necrosis and scan is suspicous for OM, started on Cefepime, flagyl and vancomycin, patient was seen by surgeon, stated unable to salvage the toe and patient had amputation of her right 3rf toe POD# 1, today patient stats feeling better, working with PT, seen by surgeon and ecommended to continue IV abx for 1 more day and will plan to discharge tomorrow, on oral abx, will follow up, will continue to monitor, Subjective Date/time seen: 01/24/23 14:58 Interval history: The patient presented to the ED for evaluation of a right 3rd toe wound which has been present for approximately 10 days and is worsening despite oral antibiotics as per HPI. Labs, imaging, EKG, and all reports were personally reviewed. The tip of that toe appears necrotic with surrounding cellulitis and there are findings suggestive of osteomyelitis on x-ray. She has been started on cefepime, metronidazole, and vancomycin per antibiotic stewardship recommendations. Surgery has been consulted as she will likely need amputation of that toe. Patient reports that her diabetes is well controlled with a reported recent A1c of 6.2%. We discussed the importance of keeping her diabetes under good control for wound healing and wearing shoes to avoid injuries that might go unnoticed with diabetes and neuropathy. Blood pressures were reviewed and they are stable. Her home medications will be reviewed and resumed as appropriate. 01/24/2023 interval history: patient with history DM accidentally injured her 3rd right middle toe and now has developed necrosis and scan is suspicous for OM, started on Cefepime, flagyl and vancomycin, patient was seen by surgeon, stated unable to salvage the toe and patient had amputation of her right 3rf toe POD# 1, today patient stats feeling better, working with PT, seen by surgeon and ecommended to continue IV abx for 1 more day and will plan to discharge tomorrow, on oral abx, will follow up, will continue to monitor, Review of Systems Review of Systems:
[2023-01-24] MEDS: SILVERGEL (ELTA) 45 ML 1 APPLIC TOPICAL (15:56)
[2023-01-24] MEDS: ATORVASTATIN 40 MG TABLET PO (20:36)
[2023-01-24 20:37] VITALS: PULSE 68
[2023-01-24] MEDS: traZODone HCL 50 MG TABLET 100 MG PO (20:37)
[2023-01-24] MEDS: atenoloL 25 MG TABLET PO (20:37)
[2023-01-24 21:09] LABS: Glucose Point of Care 92 mg/dl (65-105)
[2023-01-24 21:26] LABS: Vancomycin Trough 18.7 ug/mL (10.0-20.0)
[2023-01-24 22:00] VITALS: BP 141/65; PULSE 64; RESP 16; TEMP 36.4; O2SAT 100
[2023-01-25] MEDS: CEFEPIME 2 GM/NS 50 ML 2 GM/50 ML BAG IVPB (00:14)
[2023-01-25 01:35] LABS: Glucose Point of Care 94 mg/dl (65-105)
[2023-01-25] MEDS: metroNIDAZOLE 500 MG/ISO 100ML 500 MG/100 ML BAG 100 MG IVPB (05:49)
[2023-01-25 06:00] VITALS: BP 135/64; PULSE 65; RESP 14; TEMP 36.6; O2SAT 99
[2023-01-25 06:03] LABS: Hematocrit 33.4 % (37.0-47.0); Hemoglobin 10.4 g/dL (12.0-15.0); Mean Corpuscular HGB Conc 31.1 g/dl (32-36); Mean Corpuscular Hemoglobin 28.7 pg (26-34); Mean Corpuscular Volume 92.3 fl (80-100); Mean Platelet Volume 9.1 fl (7.4-10.4); Platelet Count Result 331 k/mm3 (150-375); Red Blood Count 3.62 M/mm3 (4.2-5.4); Red Cell Distribution Width 13.2 % (11.5-14.5); White Blood Count 9.1 K/mm3 (4.5-10.0)
[2023-01-25 06:16] LABS: Anion Gap 4 mmol/L (8-16); Blood Urea Nitrogen 13 mg/dL (7-17); CRP 4.2 mg/dL (<1.0); Calcium 8.5 mg/dL (8.4-10.2); Carbon Dioxide 29 mmol/L (22-30); Chloride 106 mmol/L (98-107); Estimated CRCL calculation 90 ml/min; Estimated Glomerular Filt Rate > 60; Glucose 112 mg/dL (65-110); Magnesium 2.2 mg/dL (1.6-2.3); Potassium 4.4 mmol/L (3.4-5.0); Sodium 139 mmol/L (137-145)
[2023-01-25] MEDS: VANCOMYCIN 1,250 MG/NS 250 ML 1,250 MG/250 ML BAG 166 MG IVPB (06:26)
[2023-01-25] MEDS: SILVERGEL (ELTA) 45 ML 1 APPLIC TOPICAL (07:51)
[2023-01-25] MEDS: DULoxetine HCL 60 MG CAPSULE.DR PO (07:51)
[2023-01-25] MEDS: metFORMIN HCL 500 MG TABLET PO (07:51)
[2023-01-25] MEDS: FAMOTIDINE 20 MG TABLET PO (07:51)
[2023-01-25 08:00] VITALS: O2SAT 99
[2023-01-25 08:12] LABS: Glucose Point of Care 92 mg/dl (65-105)
[2023-01-25 11:38] LABS: Glucose Point of Care 102 mg/dl (65-105)
--- NOTE | 2023-01-25 12:06 | PM.DS ---
DS: Admitting Diagnosis Discharge Date 01/25/2023 Admitting Diagnosis Toe infection. DS: Discharge Diagnosis Discharge Diagnosis (1) Osteomyelitis of third toe of right foot: Code(s): M86.9 - Osteomyelitis, unspecified Status: Acute (2) Diabetic foot infection: Code(s): E11.628 - Type 2 diabetes mellitus with other skin complications; L08.9 - Local infection of the skin and subcutaneous tissue, unspecified Status: Acute (3) Cellulitis of third toe of right foot: Code(s): L03.031 - Cellulitis of right toe Status: Acute (4) Type 2 diabetes mellitus: Code(s): E11.9 - Type 2 diabetes mellitus without complications Status: Acute (5) Hypertension: Code(s): I10 - Essential (primary) hypertension Status: Acute (6) Hyperlipidemia: Code(s): E78.5 - Hyperlipidemia, unspecified Status: Acute (7) Depression with anxiety: Code(s): F41.8 - Other specified anxiety disorders Status: Acute Plan The patient presented to the ED for evaluation of a right 3rd toe wound which has been present for approximately 10 days and is worsening despite oral antibiotics as per HPI. Labs, imaging, EKG, and all reports were personally reviewed. The tip of that toe appears necrotic with surrounding cellulitis and there are findings suggestive of osteomyelitis on x-ray. She has been started on cefepime, metronidazole, and vancomycin per antibiotic stewardship recommendations. Surgery has been consulted as she will likely need amputation of that toe. Patient reports that her diabetes is well controlled with a reported recent A1c of 6.2%. We discussed the importance of keeping her diabetes under good control for wound healing and wearing shoes to avoid injuries that might go unnoticed with diabetes and neuropathy. Blood pressures were reviewed and they are stable. Her home medications will be reviewed and resumed as appropriate. 01/24/2023 interval history: patient with history DM accidentally injured her 3rd right middle toe and now has developed necrosis and scan is suspicous for OM, started on Cefepime, flagyl and vancomycin, patient was seen by surgeon, stated unable to salvage the toe and patient had amputation of her right 3rf toe POD# 1, today patient stats feeling better, working with PT, seen by surgeon and ecommended to continue IV abx for 1 more day and will plan to discharge tomorrow, on oral abx, will follow up, will continue to monitor, DS: Summary Hospital Course Reason for hospitalization: Chief Complaint: Toe infection. Narrative: This is a 67-year-old female with type 2 diabetes mellitus, hypertension, and hyperlipidemia who presented to the emergency department via private vehicle from home for evaluation of a toe infection. The patient provides the following history. Not quite 2 weeks ago she was trimming her toenails when she accidentally injured the right 3rd toe with the nail clippers. The area became red and swollen over the next couple of days and she was prescribed cephalexin by her doctor. She has been compliant with antibiotic and has soaked her foot in a mixture of peroxide, isopropyl alcohol, and Epsom salts which she admits seems to have irritated the toe. The last couple of days the toe became painful and she developed increasing swelling and redness which is now extending up the leg. Yesterday she reports that the toe started to turn black. She denies fever, chills, sweats, nausea, and vomiting. No known history of multidrug resistant organisms. She believes her diabetes is well controlled with a recent hemoglobin A1c is 6.2%; on occasion she has mild neuropathy symptoms but that is rare. She admits that she walks around barefoot quite frequently. Workup was significant for leukocytosis with a WBC count of 14.2, normal lactic acid, random glucose 178, CRP 17.9, and foot x-rays showing findings concerning for osteomyelitis or gout. She has been started on broad-spec
--- NOTE | 2023-01-25 12:26 | PM.PNGS ---
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 Wound is looking very good. Continue packing daily with quarter-inch iodoform gauze and covering with dry gauze and Morgan wrap. Home health for wound care dressing changes. Will see the patient back in the [facility] next week. Okay to discharge home today on oral antibiotics. Subjective Subjective Date/Time Seen: 01/25/23 12:26 Interval history: Patient is without complaints. Minimal pain in the amputation site of the right 3rd toe. Able to ambulate well with a walker and a postop shoe. Exam Extrem: Other: Right foot 3rd toe amputation site clean. No bleeding. No purulent drainage. All viable tissue and no redness on the forefoot. Objective Data Vital Signs Vital Signs: Vital Signs - 24 hr 01/24/23 14:00 01/24/23 20:37 01/24/23 20:00 Temperature 37.0 C Pulse Rate 58 L 68 Respiratory Rate 16 Blood Pressure 108/62 Pulse Oximetry 99 Oxygen Delivery Room Air 01/24/23 22:00 01/25/23 06:00 01/25/23 08:00 Temperature 36.4 C L 36.6 C Pulse Rate 64 65 Respiratory Rate 16 14 Blood Pressure 141/65 H 135/64 Pulse Oximetry 100 99 99 Oxygen Delivery Room Air Intake/Output Intake/Output: Intake & Output 01/22/23 01/23/23 01/24/23 01/25/23 23:59 23:59 23:59 23:59 Intake Total 1840 1690 1950 690 Output Total 400 1800 400 700 Balance 1440 -110 1550 -10 Meds/Results Medications: Active Medications Generic Name Dose Route Start Last Admin Trade Name Freq PRN Reason Stop Dose Admin Acetaminophen 650 mg 01/21/23 15:51 Acetaminophen 325 Mg Tablet PO Q4H PRN Mild Pain (1-3) or Fever Hydrocodone Bitart/Acetaminophen 1 tab 01/23/23 08:33 01/24/23 19:33 Hydrocodone/Acetaminophen (*Crx) 5-325 Mg Tablet PO 1 tab Q6H PRN Administration Pain Rated 4-6 Alprazolam 1 mg 01/23/23 09:07 01/24/23 07:38 Alprazolam (*Crx) 0.5 Mg Tablet PO 1 mg BID PRN Administration Anxiety Atenolol 25 mg 01/23/23 21:00 01/24/23 20:37 Atenolol 25 Mg Tablet PO 25 mg QHS TIFF Administration Atorvastatin Calcium 40 mg 01/23/23 21:00 01/24/23 20:36 Atorvastatin 40 Mg Tablet PO 40 mg HS TIFF Administration Dextrose 12.5 gm 01/21/23 20:09 Dextrose 50% 25 Gm/50 Ml Syringe IV PUSH PRN PRN Hypoglycemia Protocol Duloxetine HCl 60 mg 01/23/23 09:07 01/25/23 07:51 Duloxetine Hcl 60 Mg Capsule.Dr PO 60 mg DAILY TIFF Administration Famotidine 20 mg 01/23/23 09:07 01/25/23 07:51 Famotidine 20 Mg Tablet PO 20 mg BID TIFF Administration Glucagon 1 mg 01/21/23 20:09 Glucagon For Inj 1 Mg Vial IM PRN PRN Hypoglycemia Protocol Glucose 15 gm 01/21/23 20:09 Glucose Oral Gel 15 Gm Of Glucse In 37.5 Gm Tube PO PRN PRN Hypoglycemia Protocol Dextrose 1,000 mls @ 100 mls/hr 01/21/23 20:09 Dextrose 5% 1,000 Ml IVPB PRN PRN Hypoglycemia Protocol Cefepime HCl 2 gm in 50 mls @ 100 mls/hr 01/22/23 00:00 01/25/23 01:34 Maxipime 2 Gm/Ns 50 Ml IVPB Infused Q12H TIFF Infusion Metronidazole 500 mg in 100 mls @ 100 mls/hr 01/21/23 22:00 01/25/23 05:49 Flagyl 500 Mg/Iso Soln 100 Ml IVPB 100 mls/hr Q8H TIFF Administration Vancomycin HCl 1,250 mg in 250 mls @ 166.667 mls/hr 01/23/23 22:00 01/25/23 06:26 Vancomycin 1,250 Mg/Ns 250 Ml IVPB 166 mls/hr Q8H TIFF Administration Loperamide HCl 2 mg 01/25/23 12:19 Loperamide Hcl 2 Mg Capsule PO PRN PRN Diarrhea Metformin HCl 500 mg 01/23/23 09:07 01/25/23 07:51 Metformin Hcl 500 Mg Tablet PO 500 mg BIDWM TIFF Administration Morphine Sulfate 2 mg 01/23/23 08:45 Morphine Sulfate (*Crx) 2 Mg/Ml Inj IV PUSH Q4H PRN P
[2023-01-25] MEDS: LOPERAMIDE HCL 2 MG CAPSULE PO (12:41)
== END 2023-01-25 13:07 | disposition home health service (06) | DRG 256 ==
LOC: ANHED 15:20 → ANH3MEDSUR 01-22 13:31
PROVIDERS: Physician Assistant; Surgery; Admitting Provider Family Medicine; Emergency Provider Preventive Medicine Aerospace Medicine; Visit Provider Family Medicine
PROC: 0Y6T0Z0 Detachment at Right 3rd Toe, Complete, Open Approach (ICD-10-PCS; principal; 2023-01-23 07:30)
DX: E11.52 Type 2 diabetes mellitus with diabetic peripheral angiopathy with gangrene (principal); I96 Gangrene, not elsewhere classified; M86.171 Other acute osteomyelitis, right ankle and foot; L03.031 Cellulitis of right toe; E11.69 Type 2 diabetes mellitus with other specified complication; E78.5 Hyperlipidemia, unspecified; F41.8 Other specified anxiety disorders; I10 Essential (primary) hypertension; M19.90 Unspecified osteoarthritis, unspecified site; Z79.84 Long term (current) use of oral hypoglycemic drugs; Z87.891 Personal history of nicotine dependence; Z96.643 Presence of artificial hip joint, bilateral; Z96.653 Presence of artificial knee joint, bilateral
CPT/HCPCS: 36415; 73630; 80048; 80053; 80202; 82948; 83036; 83605; 83735; 85025; 85027; 85652; 86140; 88305; 88311; 96365; 96367; 97161; 97165; 99285; A9270; J0692; J1836; J2250; J2270; J2405; J3370; J7120

== ENCOUNTER 2024-07-08 16:42 | Emergency (ER) | payer MEDICARE, SELFPAY ==
--- NOTE | 2024-07-08 16:51 | ED.WOUNDLAC ---
HPI - Wound/Laceration General Chief Complaint: Wound/Laceration Stated Complaint: Right Foot Wound Related Data Home Medications ?Medication ?Instructions ?Recorded ?Confirmed ?Last Taken ?Type alprazolam 1 mg tablet 1 mg PO BID PRN Anxiety 01/21/23 03/09/23 Unknown History atenolol 25 mg tablet 25 mg PO QHS 01/21/23 03/09/23 Unknown History atorvastatin 40 mg tablet 40 mg PO HS 01/21/23 03/09/23 Unknown History duloxetine 60 mg capsule,delayed 60 mg PO DAILY 01/21/23 03/09/23 Unknown History release famotidine 20 mg tablet 20 mg PO BID 01/21/23 03/09/23 Unknown History metformin 500 mg tablet 500 mg PO BID 01/21/23 03/09/23 Unknown History potassium 20 mg chewable tablet 20 mg PO BID 01/21/23 03/09/23 Unknown History trazodone 100 mg tablet 100 mg PO HS 01/21/23 03/09/23 Unknown History triamterene 37.5 1 tablet PO DAILY 01/21/23 03/09/23 Unknown History mg-hydrochlorothiazide 25 mg tablet lisinopril 10 mg tablet 10 mg PO DAILY 03/08/23 03/09/23 Unknown History Allergies Allergy/AdvReac Type Severity Reaction Status Date / Time No Known Allergies Allergy Verified 07/08/24 16:46 [facility] Past Medical History Medical History Depression with anxiety Hyperlipidemia Hypertension Osteoarthritis Type 2 diabetes mellitus Surgical History Surgical History History of bilateral hip replacements History of bilateral knee replacement 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 Code status: Full code. Smoking status: Former smoker Alcohol intake: never Substance use: never Substance use type: former substance user and marijuana Lack of Transportation: No Lack of Food: Never True Current Housing: I Have Housing Concerned About Future Housing: No Difficulty Paying Gas/Electric Bills: No Difficulty Paying for Meds: No Currently Unemployed: No Education: Don't Know Difficulty w/ Childcare or Family Care: No Additional living arrangements comments: with 2 grown children. Lives in own home in [place]. 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 Spiritual care concerns: No Discharge Plan Discharge Patient Language: Kinyarwanda Prescriptions: No Action lisinopril 10 mg tablet 10 mg PO DAILY metformin 500 mg tablet 500 mg PO BID Rx Instructions: Take with meals. alprazolam 1 mg tablet 1 mg PO BID PRN (Reason: Anxiety) atenolol 25 mg Tablet 25 mg PO QHS duloxetine 60 mg capsule,delayed release(DR/EC) 60 mg PO DAILY atorvastatin 40 mg Tablet 40 mg PO HS famotidine 20 mg Tablet 20 mg PO BID trazodone 100 mg Tablet 100 mg PO HS triamterene-hydrochlorothiazid 37.5-25 mg Tablet 1 tablet PO DAILY potassium 20 mg Tablet,Chewable 20 mg PO BID Silver-Sept 200 mcg/gram Gel 1 applic topical DAILY Qty: 60 0RF Follow-up/Referrals: Vashti Butt MD [Primary Care Provider] -
[2024-07-08 16:56] VITALS: BP 145/66; PULSE 80; RESP 16; TEMP 36.8; O2SAT 97
--- NOTE | 2024-07-08 17:00 | ED.SKABFB ---
HPI - Skin/Abscess/Foreign Bdy General Chief complaint: Wound/Laceration Stated complaint: Right Foot Wound Time Seen by Provider: 07/08/24 16:55 Source: patient and RN notes reviewed Mode of arrival: ambulatory Limitations: dementia History of Present Illness HPI narrative: 69-year-old female with history of diabetes presents with concern of for redness, swelling, pain of her right foot. Reports the 4th digit of her right foot is dark colored and has an abrasion on it. She reports she just noticed this today. She reports she has been feeling tired and achy the last 3 days. She has a history of having the 3rd digit of that foot amputated from infection. MD complaint: other (Redness) Related Data Home Medications ?Medication ?Instructions ?Recorded ?Confirmed ?Last Taken ?Type alprazolam 1 mg tablet 1 mg PO BID PRN Anxiety 01/21/23 03/09/23 Unknown History atenolol 25 mg tablet 25 mg PO QHS 01/21/23 03/09/23 Unknown History atorvastatin 40 mg tablet 40 mg PO HS 01/21/23 03/09/23 Unknown History duloxetine 60 mg capsule,delayed 60 mg PO DAILY 01/21/23 03/09/23 Unknown History release famotidine 20 mg tablet 20 mg PO BID 01/21/23 03/09/23 Unknown History metformin 500 mg tablet 500 mg PO BID 01/21/23 03/09/23 Unknown History potassium 20 mg chewable tablet 20 mg PO BID 01/21/23 03/09/23 Unknown History trazodone 100 mg tablet 100 mg PO HS 01/21/23 03/09/23 Unknown History triamterene 37.5 1 tablet PO DAILY 01/21/23 03/09/23 Unknown History mg-hydrochlorothiazide 25 mg tablet lisinopril 10 mg tablet 10 mg PO DAILY 03/08/23 03/09/23 Unknown History Allergies Allergy/AdvReac Type Severity Reaction Status Date / Time No Known Allergies Allergy Verified 07/08/24 16:46 Review of Systems Review of Systems: CONSTITUTIONAL: Denies malaise, chills, sweats, or fever. EYES: Denies redness, or discharge. ENT: Denies rhinorrhea, congestion, swollen lips, swollen tongue CARDIOVASCULAR: Denies chest pain, palpitations, or edema. RESPIRATORY: Denies cough or dyspnea. GASTROINTESTINAL: Denies abdominal pain, nausea, vomiting SKIN: Reports redness, swelling, pain to the right foot and 4th digit of the right foot. MUSCULOSKELETAL: Denies joint pain or myalgia. NEUROLOGIC: Denies headache. All systems reviewed & are unremarkable except as noted in HPI and below PMFSH Past Medical History Medical History Depression with anxiety Hyperlipidemia Hypertension Osteoarthritis Type 2 diabetes mellitus Surgical History Surgical History History of bilateral hip replacements History of bilateral knee replacement 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 Code status: Full code. Smoking status: Former smoker Alcohol intake: never Substance use: never Substance use type: former substance user and marijuana Lack of Transportation: No Lack of Food: Never True Current Housing: I Have Housing Concerned About Future Housing: No Difficulty Paying Gas/Electric Bills: No Difficulty Paying for Meds: No Currently Unemployed: No Education: Don't Know Difficulty w/ Childcare or Family Care: No Additional living arrangements comments: with 2 grown children. Lives in own home in [place]. 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 Spiritual care concerns: No Comments At time of signature, agree with nursing past medical, surgical, social and family history. There is no relevant family history pertinent to the presenting complaint Exam Narrative: GENERAL: Well-appearing, well-nourished, and in no acute distress. HEAD: Normocephalic, atraumatic. EYES: PERRLA, conjunctivae clear ENT: Mucous membranes moist. NECK: Supple. No lymphadenopathy CHEST: Clear to auscultation. No respiratory distress. HEART: Regular rate and rhythm. SKIN: Warm, dry. Erythema, induration, tenderness, warmth noted to the right foot, the 4th digit of the right foot is dark colored with a open blister on the dorsal aspect of the digit. NEURO: Alert and oriented x3. PSYCH: Normal mood and affect Course Course Emergency Course: Patient is aware of, understands and agrees be transferred to the emergency room. Patient agrees to proceed directly to the emergency department. Portions of this record may have been created with voice recognition software Level of Care: Express Care Visit Vital Signs Vital signs: Vital Signs Temperature 98.3 F 07/08/24 16:56 Pulse Rate 80 07/08/24 16:56 Respiratory Rate 16 07/08/24 16:56 Blood Pressure 145/66 H 07/08/24 16:56 Pulse Oximetry 97 07/08/24 16:56 Oxygen Delivery Room Air 07/08/24 16:56 Temperature 98.3 F 07/08/24 16:56 Pulse Rate 80 07/08/24 16:56 Respiratory Rate 16 07/08/24 16:56 Blood Pressure 145/66 H 07/08/24 16:56 Pulse Oximetry 97 07/08/24 16:56 Oxygen Delivery Room Air 07/08/24 16:56 Reviewed. MDM - Skin/Abscess/Foreign Bdy MDM Narrative Medical decision making narrative: Patient is nontoxic appearing and is in no acute distress Critical Care Time Critical Care Time Critical Care Time: No Discharge Plan Discharge Clinical Impression: Cellulitis of foot, right Patient Disposition: Acute Care Hospital Condition: Stable Patient Language: Sinhala Prescriptions: No Action lisinopril 10 mg tablet 10 mg PO DAILY metformin 500 mg tablet 500 mg PO BID Rx Instructions: Take with meals. alprazolam 1 mg tablet 1 mg PO BID PRN (Reason: Anxiety) atenolol 25 mg Tablet 25 mg PO QHS duloxetine 60 mg capsule,delayed release(DR/EC) 60 mg PO DAILY atorvastatin 40 mg Tablet 40 mg PO HS famotidine 20 mg Tablet 20 mg PO BID trazodone 100 mg Tablet 100 mg PO HS triamterene-hydrochlorothiazid 37.5-25 mg Tablet 1 tablet PO DAILY potassium 20 mg Tablet,Chewable 20 mg PO BID Silver-Sept 200 mcg/gram Gel 1 applic topical DAILY Qty: 60 0RF Follow-up/Referrals: Vashti Butt MD [Primary Care Provider] - Time of Disposition: 17:08
== END 2024-07-08 17:08 | disposition short-term general hospital (02) ==
PROVIDERS: Emergency Provider Nurse Practitioner; PCP Internal Medicine Interventional Cardiology
DX: L03.115 Cellulitis of right lower limb (principal); I10 Essential (primary) hypertension; E11.9 Type 2 diabetes mellitus without complications; Z79.84 Long term (current) use of oral hypoglycemic drugs; E78.5 Hyperlipidemia, unspecified; M19.90 Unspecified osteoarthritis, unspecified site; F41.8 Other specified anxiety disorders; Z96.653 Presence of artificial knee joint, bilateral; Z96.643 Presence of artificial hip joint, bilateral; Z87.891 Personal history of nicotine dependence
CPT/HCPCS: 99212; G0463

== ENCOUNTER 2024-07-08 17:23 | Inpatient (IN) | payer MEDICARE, SELFPAY ==
--- NOTE | ~2024-07-08 | CT_ITS ---
CLINICAL INDICATION: Wound at the base of the fourth toe, infection suspected clinically COMPARISON: None. TECHNIQUE: An enhanced CT of the right foot was performed utilizing multislice spiral technique recon structed at 5 mm slice thickness. Coronal and sagittal reconstructions were performed. This CT exam ination was performed utilizing dose reduction techniques. DLP: 524 mGy-cm FINDINGS/OBSERVATIONS: No acute fracture is appreciated. At the lateral base of the fourth toe (presumably the area of clinical concern) is a well-circumscrib ed fluid collection measuring 21 x 6 x 26mm. This focus extends caudally to the undersurface of the r ight foot, likely visible within the forefoot. Punctate hyper attenuating foci measuring 2 and 3 mm are identified in this area best visualized on s agittal series images 93 and 94. No abnormality is detected within the adjacent bone. IMPRESSION: Tract of fluid attenuation within the area of clinical concern, as detailed above. The entirety of this collection is likely visible with ultrasound, if needed for drainage. Reviewed, dictated and finalized at location A. CAL REIMBURSEMENT SPECIALIST IMPRESSION: Tract of fluid attenuation within the area of clinical concern, as detailed abo ve. The entirety of this collection is likely visible with ultrasound, if needed fo r drainage.
--- NOTE | ~2024-07-08 | XR_ITS ---
HISTORY: Concern for OM, ulcers on foot COMPARISON: 01/21/2023 x-ray and CT examination dated 07/08/2024 TECHNIQUE: 3 views of the right foot were performed FINDINGS: This is a postoperative evaluation of the right foot of an inpatient post debridement of a plantar ul cer at the level of the fourth intermetatarsal space and dorsum of the right foot earlier today. Comp arison views are prior to an amputation of the right third toe secondary to gangrene and osteomyeliti s. Interval development of dislocation of the proximal phalanx of the second toe, when compared with CT examination dated 07/08/2024. The area of clinical concern was the base of the proximal phalanx of the fourth metatarsal which was debrided and packed. The base of the proximal phalanx of the second toe demonstrates irregular density in composition, bet ter evaluated on contrast-enhanced MRI (if the patient is clinically able). In addition, for the evaluation of osteomyelitis the patient would be much better served with a contr ast-enhanced MRI which is recommended IMPRESSION: As above. Reviewed, dictated and finalized at location A. ICAL LAB TECHNICIAN IMPRESSION: As above.
--- NOTE | ~2024-07-08 | US_ITS ---
EXAMINATION: US arterial ankle brachial ind DATE: 07/10/2024 19:33 INDICATION: Indication for this stat determination of the MONIKA is given as wound TECHNIQUE: Segmental pressures and plethysmographic and Doppler waveforms of the brachial and lower e xtremity arteries were obtained. COMPARISON: None. FINDINGS: Right and left brachial artery pressures of 129 mm Hg and 138 mm Hg, respectively, are concordant (no rmal difference <= 30 mmHg). The right ankle-brachial index (MONIKA) is 1.0 (normal >= 0.9-1.0). The right great toe-brachial index ( TBI) is 0.34 (normal >= 0.65). The left MONIKA is 0.91. The left TBI is 0.15. IMPRESSION: Markedly diminished toe brachial index bilaterally. Normal MONIKA bilaterally Reviewed, dictated and finalized at location A. E SCENE INVESTIGATOR
--- NOTE | ~2024-07-08 | US_ITS ---
EXAMINATION: US soft tissue LE RT DATE: 07/09/2024 17:44 INDICATION: Right foot abscess. TECHNIQUE: Multiple grayscale \ultrasound images of the right foot were obtained. COMPARISON: CT 07/08/2024 FINDINGS: The plantar aspect of the forefoot centered at the base of the fourth digit demonstrates so ft tissue swelling with heterogeneous echogenicity contiguous with a skin defect. No significant drai nable fluid collection. IMPRESSION: 1. Soft tissue swelling with heterogeneous echogenicity involving the plantar aspect of the forefoot centered at the base of the fourth digit correlating with the CT abnormality, consistent with inflamm ation/infection and necrosis. No significant drainable fluid collection. Note that non-drainable necr osis and abscess can have the same appearance by CT. Reviewed, dictated and finalized at location A. ND INSTRUCTOR ADVANCED IMPRESSION: 1. Soft tissue swelling with heterogeneous echogenicity involving the plantar a spect of the forefoot centered at the base of the fourth digit correlating with the CT abnormality, consistent with inflammation/infection and necrosis. No si gnificant drainable fluid collection. Note that non-drainable necrosis and absc ess can have the same appearance by CT.
[2024-07-08 17:28] VITALS: BP 135/56; PULSE 74; RESP 18; TEMP 37.3; O2SAT 98
[2024-07-08 18:10] LABS: Basophils Absolute Auto 0.1 K/mm3 (0.0-0.1); Basophils Percent Auto 0.3 % (0.2-1.2); Eosinophils Absolute Auto 0.1 K/mm3 (0-0.3); Eosinophils Percent Auto 0.4 % (0-4.4); Hematocrit 38.8 % (37.0-47.0); Hemoglobin 13.6 g/dL (12.0-15.0); Immature Granulocyte Absolute 0.08 K/mm3 (0.00-0.031); Immature Granulocyte Percent A 0.4 % (0-0.5); Lymphocytes Absolute Auto 1.63 K/mm3 (0.9-3.2); Mean Corpuscular HGB Conc 35.1 g/dl (32-36); Mean Corpuscular Volume 88.4 fl (80-100); Mean Platelet Volume 9.7 fl (7.4-10.4); Monocytes Absolute Auto 1.8 K/mm3 (0.1-0.6); Monocytes Percent Auto 9.7 % (2.6-8.5); Neutrophils Absolute Auto 14.5 K/mm3 (1.3-6.7); Neutrophils Percent Auto 80.2 % (45.5-73.1); Platelet Count Result 292 k/mm3 (150-375); Red Blood Count 4.39 M/mm3 (4.2-5.4); Red Cell Distribution Width 13.4 % (11.5-14.5); White Blood Count 18.1 K/mm3 (4.5-10.0)
--- NOTE | 2024-07-08 18:55 | ED.LOWEXIN ---
HPI - Extremity Injury (Lower) General Chief Complaint: Extremity Injury, Lower Stated Complaint: right toe infection Time Seen by Provider: 07/08/24 17:33 Source: patient Mode of arrival: ambulatory Limitations: no limitations History of Present Illness HPI Narrative: Patient is a 69-year-old female who presents the ED with report of an infection to her right foot. Patient reports history of diabetes, right 3rd toe amputation in 2022, peripheral neuropathy. Reports she began noticing redness and swelling to her right 4th toe and foot today. Went to an urgent care and was referred to the ED for further evaluation. Patient states she has been wearing house slippers and thinks this may have rubbed against her toe. Denies fevers. Does not have any pain or sensation to her foot. Related Data Home Medications ?Medication ?Instructions ?Recorded ?Confirmed ?Last Taken ?Type alprazolam 1 mg tablet 1 mg PO BID PRN Anxiety 01/21/23 03/09/23 Unknown History atenolol 25 mg tablet 25 mg PO QHS 01/21/23 03/09/23 Unknown History atorvastatin 40 mg tablet 40 mg PO HS 01/21/23 03/09/23 Unknown History duloxetine 60 mg capsule,delayed 60 mg PO DAILY 01/21/23 03/09/23 Unknown History release famotidine 20 mg tablet 20 mg PO BID 01/21/23 03/09/23 Unknown History metformin 500 mg tablet 500 mg PO BID 01/21/23 03/09/23 Unknown History potassium 20 mg chewable tablet 20 mg PO BID 01/21/23 03/09/23 Unknown History trazodone 100 mg tablet 100 mg PO HS 01/21/23 03/09/23 Unknown History triamterene 37.5 1 tablet PO DAILY 01/21/23 03/09/23 Unknown History mg-hydrochlorothiazide 25 mg tablet lisinopril 10 mg tablet 10 mg PO DAILY 03/08/23 03/09/23 Unknown History Allergies Allergy/AdvReac Type Severity Reaction Status Date / Time No Known Allergies Allergy Verified 07/08/24 16:46 Review of Systems Review of Systems: All systems reviewed & are unremarkable except as noted in HPI. 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 Code status: Full code. Smoking status: Former smoker Alcohol intake: never Substance use: never Substance use type: former substance user and marijuana Lack of Transportation: No Lack of Food: Never True Current Housing: I Have Housing Concerned About Future Housing: No Difficulty Paying Gas/Electric Bills: No Difficulty Paying for Meds: No Currently Unemployed: No Education: Don't Know Difficulty w/ Childcare or Family Care: No Additional living arrangements comments: with 2 grown children. Lives in own home in [place]. 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 Spiritual care concerns: No Exam Narrative: GENERAL: Appears older than stated age, obese with BMI of 31.4, non-toxic, in no acute distress. HEAD: Normocephalic, atraumatic. RESPIRATORY: Airway patent, respirations nonlabored. Clear to auscultation bilaterally, no rales, rhonchi, wheezing. CARDIOVASCULAR: Regular rate and rhythm without murmurs, rubs, or gallops. Pedal pulses are strong and easily palpable. MUSCULOSKELETAL: Moves all extremities. No gross deformities. Decreased sensation throughout R foot. Diffuse erythema/warmth/swelling to distal R foot, erythema extending to anterior ankle mortise with lymphangitic streaking up to mid calf. Swelling, fluctuance, inflammation noted diffusely throughout R 4th toe. Superficial skin abrasion over proximal phalange region of 4th toe. Ulcerated region to plantar aspect of foot in area just proximal from 4th toe with some serous drainage/surrounding ecchymosis. SKIN: Warm, dry, normal color. NEURO: A&O X3. Speech clear. No ataxic movements. PSYCHIATRIC: Appropriate mood and affect. Normal interaction. Course Vital Signs Vital signs: Vital Signs Temperature 99.1 F 07/08/24 17:28 Pulse Rate 74 07/08/24 17:28 Respiratory Rate 18 07/08/24 17:28 Blood Pressure 135/56 L 07/08/24 17:28 Pulse Oximetry 98 07/08/24 17:28 Temperature 99.1 F 07/08/24 17:28 Pulse Rate 82 07/08/24 20:00 Respiratory Rate 18 07/08/24 20:00 Blood Pressure 108/58 L 07/08/24 20:00 Pulse Oximetry 96 07/08/24 20:00 MDM - Extremity Injury (Lower) MDM Narrative Medical decision making narrative: Patient presented to ED with infection to right foot, diabetic, ulceration to dorsum and plantar aspect of 4th toe. History of 3rd toe amputation. Patient's vitals are stable upon arrival. She is in no acute distress. Good pedal pulses are noted. She does have decreased sensation related to peripheral neuropathy. 4th toe looks acutely infected, concerning for osteomyelitis. Cbc with blood cell count of 18.1. Neutrophil predominance. No bandemia. CMP with hypokalemia at 2.8. PO/IV replacement given. Fluids ongoing. Creatinine today 1.2. No recent records to compare to, though previous records have shown creatinine of 0.6. Lactic acid 2.1. Inflammatory markers are notably elevated. Hemoglobin A1c is 5.2%. CT of R foot showing tracking fluid collection along toe and to plantar aspect of foot, no obvious evidence of osteomyelitis. Blood cultures were obtained. Cefepime, Flagyl, vancomycin started per ED antibiotics stewardship. Patient will be admitted for further evaluation. Discussed case with Dr. Tineo, orthopedics, will consult. Wound consult. Discussed case with Dr. Rodriguez, hospitalist, accepted patient for admission. Patient and family in agreement with plan and need for admission. Medical Records Attestation: I reviewed the patient's medical records. Lab Data Attestation: I reviewed the patient's lab results. 07/08/24 18:04 07/08/24 18:04 Labs: Lab Results 07/08/24 07/08/24 07/08/24 Range/Units 18:02 18:04 18:31 WBC 18.1 H (4.5-10.0) K/mm3 RBC 4.39 (4.2-5.4) M/mm3 Hgb 13.6 D (12.0-15.0) g/dL Hct 38.8 (37.0-47.0) % MCV 88.4 (80-100) fl MCH 31.0 (26-34) pg MCHC 35.1 (32-36) g/dl RDW 13.4 (11.5-14.5) % Plt Count 292 (150-375) k/mm3 MPV 9.7 (7.4-10.4) fl Immature Gran % (Auto) 0.4 (0-0.5) % Neut % (Auto) 80.2 H (45.5-73.1) % Lymph % (Auto) 9.0 L (18.3-44.2) % [place] % (Auto) 9.7 H (2.6-8.5) % Eos % (Auto) 0.4 (0-4.4) % Baso % (Auto) 0.3 (0.2-1.2) % Lymph # (Auto) 1.63 (0.9-3.2) K/mm3 [place] # (Auto) 1.8 H (0.1-0.6) K/mm3 Eos # (Auto) 0.1 (0-0.3) K/mm3 Baso # (Auto) 0.1 (0.0-0.1) K/mm3 Abs Immat Gran (auto) 0.08 H (0.00-0.031) K/mm3 Absolute Neuts (auto) 14.5 H (1.3-6.7) K/mm3 Absolute Nucleated RBC 0.000 (0.0-0.012) K/mm3 Nucleated RBC % 0.0 (0.0-0.2) % ESR 79 H (0-20) mm/hr Sodium 134 L (137-145) mmol/L Potassium 2.8 L* (3.4-5.0) mmol/L Chloride 89 L (98-107) mmol/L Carbon Dioxide > 40 H (22-30) mmol/L Anion Gap (4-12) mmol/L BUN 19 H (7-17) mg/dL Creatinine 1.20 H (0.7-1.0) mg/dL Estim Creat Clear Calc 42 ml/min Estimated GFR 45 L (59 - ) Glucose 157 H (65-110) mg/dL Hemoglobin A1c 5.2 (<5.7) % Lactic Acid 2.1 H (0.7-2.0) mmol/L Calcium 9.4 (8.4-10.2) mg/dL Magnesium 2.0 (1.6-2.3) mg/dL Total Bilirubin 2.5 H (0.2-1.3) mg/dL AST 34 (14-36) U/L ALT 24 (6-35) U/L Alkaline Phosphatase 153 H (38-126) U/L C-Reactive Protein > 27.0 H (<1.0) mg/dL Total Protein 8.0 (6.3-8.2) g/dL Albumin 4.3 (3.5-5.1) g/dL Imaging Data Attestation: I personally reviewed and interpreted this imaging study as follows: Radiologist's impression: ITS Impressions Foot CT 07/08/24 19:41 IMPRESSION: Tract of fluid attenuation within the area of clinical concern, as detailed above. The entirety of this collection is likely visible with ultrasound, if needed for drainage. Discharge Plan Discharge Clinical Impression: Ulcer of foot due to type 2 diabetes mellitus, Hypokalemia, CHRISTIANA (acute kidney injury), Cellulitis and abscess of toe of right foot Patient Disposition: Still a Patient Condition: Stable Patient Language: Citizen Of [place] Prescriptions: No Action lisinopril 10 mg tablet 10 mg PO DAILY metformin 500 mg tablet 500 mg PO BID Rx Instructions: Take with meals. alprazolam 1 mg tablet 1 mg PO BID PRN (Reason: Anxiety) atenolol 25 mg Tablet 25 mg PO QHS duloxetine 60 mg capsule,delayed release(DR/EC) 60 mg PO DAILY atorvastatin 40 mg Tablet 40 mg PO HS famotidine 20 mg Tablet 20 mg PO BID trazodone 100 mg Tablet 100 mg PO HS triamterene-hydrochlorothiazid 37.5-25 mg Tablet 1 tablet PO DAILY potassium 20 mg Tablet,Chewable 20 mg PO BID Silver-Sept 200 mcg/gram Gel 1 applic topical DAILY Qty: 60 0RF Follow-up/Referrals: Vashti Butt MD [Primary Care Provider] -
[2024-07-08 18:56] LABS: Alanine Aminotransferase 24 U/L (6-35); Albumin Level 4.3 g/dL (3.5-5.1); Alkaline Phosphatase 153 U/L (38-126); Aspartate Amino Transferase 34 U/L (14-36); Bilirubin,Total 2.5 mg/dL (0.2-1.3); Blood Urea Nitrogen 19 mg/dL (7-17); CRP > 27.0 mg/dL (<1.0); Calcium 9.4 mg/dL (8.4-10.2); Carbon Dioxide > 40 mmol/L (22-30); Chloride 89 mmol/L (98-107); Estimated CRCL calculation 42 ml/min; Estimated Glomerular Filt Rate 45; Glucose 157 mg/dL (65-110); Potassium 2.8 mmol/L (3.4-5.0); Sodium 134 mmol/L (137-145)
[2024-07-08 18:58] VITALS: BP 105/45; PULSE 90; RESP 18; O2SAT 96
[2024-07-08 19:11] LABS: Lactic Acid Reflex 2.1 mmol/L (0.7-2.0)
[2024-07-08] MEDS: CEFEPIME 2 GM/NS 50 ML 2 GM/50 ML BAG IVPB (19:14)
[2024-07-08] MEDS: SODIUM CHLORIDE 0.9% IV 1,000 ML 999 ML IV CONT (19:14)
[2024-07-08 19:26] LABS: Hemoglobin A1C 5.2 % (<5.7)
[2024-07-08 19:42] LABS: Erythrocyte Sedimentation Rate 79 mm/hr (0-20)
[2024-07-08] MEDS: POTASSIUM CHLORIDE 20 MEQ ER TABLET 40 MEQ PO (19:55)
[2024-07-08] MEDS: metroNIDAZOLE 500 MG/ISO 100ML 500 MG/100 ML BAG 100 MG IVPB (19:56)
[2024-07-08] MEDS: POTASSIUM CHLORIDE INJ 40 MEQ in SODIUM CHLORIDE 0.9% IV 500 ML 130 MEQ IVPB (19:58)
[2024-07-08 20:00] VITALS: BP 108/58; PULSE 82; RESP 18; O2SAT 96
[2024-07-08] MEDS: VANCOMYCIN 2,000 MG/NS 500 ML 2,000 MG/500 ML BAG 250 MG IVPB (20:57)
[2024-07-08 21:37] LABS: Reflex Lactic Acid Yes or No Add Lactic
--- NOTE | 2024-07-08 21:53 | PM.IMHP ---
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 The patient noticed redness and swelling to her right 4th toe today that had progressed up her foot throughout the course of the day stopping just below the ankle. She went to urgent care and was directed to go to the ER for further evaluation. She reported that she has pain that is a 5/10 in intensity that feels like pressure. She denies any sharper stabbing pain in the sole of the foot. She only noticed today a small amount of drainage on her sock. She has not been having any fevers or chills but reports that she has just not felt well for the last 3-4 days. She denies any nausea or vomiting. She reports that she does not have much sensation in her feet. Unfortunately she does walk around the house without shoes from time to time. Her feet are visibly soiled. Her glucoses have been within normal range. Her A1c in the ER was 5.2. In the ER was noted she has some purulent drainage from the sole of her foot and her foot was generally swollen with marked swelling of the 2nd toe with dark discoloration of the top of the toe. Her white count was elevated 18 and her ESR and CRP were markedly elevated. Stat CT of the foot with contrast what appears like an ulcer to the plantar surface of the forefoot at approximately the 4th metatarsal head that extends caudally and then tracks distal into the toe. The fluid collections most likely abscess and measures 21 x 6 x 26 mm. She was subsequently admitted to the hospital for further evaluation and treatment diabetic cellulitis and abscess of the 4th toe on the right foot. She reports that her mouth is chronically dry. Review of Systems Review of Systems: 12 systems were reviewed with pertinent positives and negatives per HPI. Except as documented in the HPI, all other systems were reviewed and are negative. 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 She has 3 cats. Surrogate medical decision maker: Elio Hollis, son. Code status: DNR/DNI (however the patient states that she would be okay with pressors and noninvasive ventilator support if needed) Smoking status: Never smoker Alcohol intake: never Substance use: former Substance use type: marijuana Lack of Transportation: No Lack of Food: Never True Current Housing: I Have Housing Concerned About Future Housing: No Difficulty Paying Gas/Electric Bills: No Difficulty Paying for Meds: No Currently Unemployed: No Education: Don't Know Difficulty w/ Childcare or Family Care: No Additional living arrangements comments: She has been since 2019. Her and her were for 48 years prior to his . She has 2 grown children. Lives in own home in [place]. One of her sons recently moved back in with her. 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 Spiritual care concerns: No Meds Home Medications and Allergies Home Medications ?Medication ?Instructions ?Recorded ?Confirmed ?Type alprazolam 1 mg tablet 1 mg PO BID PRN Anxiety 01/21/23 07/09/24 History atenolol 25 mg tablet 25 mg PO QHS 01/21/23 07/09/24 History atorvastatin 40 mg tablet 40 mg PO HS 01/21/23 07/09/24 History duloxetine 60 mg capsule,delayed 60 mg PO DAILY 01/21/23 07/09/24 History release metformin 500 mg tablet 500 mg PO BID 01/21/23 07/09/24 History potassium 20 mg chewable tablet 20 mg PO BID 01/21/23 07/09/24 History trazodone 100 mg tablet 100 mg PO HS 01/21/23 07/09/24 History triamterene 37.5 1 tablet PO DAILY 01/21/23 07/09/24 History mg-hydrochlorothiazide 25 mg tablet lisinopril 10 mg tablet 10 mg PO DAILY 03/08/23 07/09/24 History atenolol 50 mg tablet mg 07/09/24 History potassium chloride 20 mEq meq PO 07/09/24 History tablet,extended release(part/cryst) Allergies Allergy/AdvReac Type Severity Reaction Status Date / Time No Known Allergies Allergy Verified 07/08/24 16:46 Vital Signs Vital Signs - 24 hr 07/08/24 17:28 07/08/24 18:58 07/08/24 20:00 Temperature 99.1 F Pulse Rate 74 90 82 Respiratory Rate 18 18 18 Blood Pressure 135/56 L 105/45 L 108/58 L Pulse Oximetry 98 96 96 Exam Narrative: Weight 83 kg BMI 31.4 Const: Other: Obese, mildly ill-appearing, appears stated age, disheveled HENMT: Other: Mucous membranes are dry, no oral pharyngeal erythema, crowded posterior oropharynx Eyes: Other: Pupils are equal and reactive, no scleral icterus, no conjunctival pallor Neck: Other: No JVD, no lymphadenopathy Resp: Other: Clear to auscultation bilaterally, no increased work of breathing Cardio: Other: Regular rate, regular rhythm, 2+ bilateral radial pedal pulses GI: Other: Obese, soft, nontender, normoactive bowel sounds Skin: Other: Dried flaking skin to the top of the right foot foot is warm to touch, associated erythema with black marker demarcating extent of erythema to the top of the foot approaching the ankle extending down just below the right medial malleolus and similarly towards the lateral malleolus, ulcer to the plantar surface of the right foot at the base of the 4th metatarsal with purulent drainage, marked swelling of the 4th toe with darkened discoloration of the skin skin appears friable, boggy appearance concerning for gangrene Neuro: Other: Alert orient x4, speech is clear, no facial asymmetry, decreased sensation to bilateral feet, no localizing neurologic deficits noted during the course of conversation Extrem: Other: Skin erythema in changes as discussed under skin exam, ulcer to the base of the 4th metatarsal with purulent drainage as discussed above, marked skin changes of the 4th toe of the right foot, the 2nd toe of the right foot is deviated upward in his overlapping the 4th toe there is surgical absence of the 3rd toe Psych: Other: Appropriate mood and affect, pleasant and cooperative, fair judgment and insight H&P: Results Labs Labs: Laboratory Tests 07/08/24 18:04 07/08/24 18:04 07/08/24 07/08/24 07/08/24 18:02 18:04 18:31 WBC 18.1 H RBC 4.39 Hgb 13.6 D Hct 38.8 MCV 88.4 MCH 31.0 MCHC 35.1 RDW 13.4 Plt Count 292 MPV 9.7 Immature Gran % (Auto) 0.4 Neut % (Auto) 80.2 H Lymph % (Auto) 9.0 L Pitkin % (Auto) 9.7 H Eos % (Auto) 0.4 Baso % (Auto) 0.3 Lymph # (Auto) 1.63 Pitkin # (Auto) 1.8 H Eos # (Auto) 0.1 Baso # (Auto) 0.1 Abs Immat Gran (auto) 0.08 H Absolute Neuts (auto) 14.5 H Absolute Nucleated RBC 0.000 Nucleated RBC % 0.0 ESR 79 H Sodium 134 L Potassium 2.8 L* Chloride 89 L Carbon Dioxide > 40 H Anion Gap BUN 19 H Creatinine 1.20 H Estim Creat Clear Calc 42 Estimated GFR 45 L Glucose 157 H Hemoglobin A1c 5.2 Lactic Acid 2.1 H Calcium 9.4 Magnesium 2.0 Total Bilirubin 2.5 H AST 34 ALT 24 Alkaline Phosphatase 153 H C-Reactive Protein > 27.0 H Total Protein 8.0 Albumin 4.[address] 07/08/24 19:41 IMPRESSION: Tract of fluid attenuation within the area of clinical concern, as detailed above. The entirety of this collection is likely visible with ultrasound, if needed for drainage. ER to telemetry reviewed All imaging and EKGs personally reviewed and interpreted. And unless stated otherwise agree with radiologic and cardiology interpretation. Assessment and Plan Assessment and plan (1) Cellulitis and abscess of toe of right foot: Code(s): L03.031 - Cellulitis of right toe; L02.611 - Cutaneous abscess of right foot Status: Acute (2) Ulcer of foot due to type 2 diabetes mellitus: Code(s): E11.621 - Type 2 diabetes mellitus with foot ulcer; L97.509 - Non-pressure chronic ulcer of other part of unspecified foot with unspecified severity Status: Acute (3) Hypokalemia: Code(s): E87.6 - Hypokalemia Status: Acute (4) CHRISTIANA (acute kidney injury): Code(s): N17.9 - Acute kidney failure, unspecified Status: Acute (5) Type 2 diabetes mellitus: Qualifiers: Diabetes mellitus complication detail: with polyneuropathy Diabetes mellitus complication status: with neurologic complications Diabetes mellitus long term care phlebotomist insulin use: without long term care phlebotomist use Qualified Code(s): E11.42 - Type 2 diabetes mellitus with diabetic polyneuropathy Code(s): E11.9 - Type 2 diabetes mellitus without complications Status: Acute Plan Patient has diabetic foot wound with an ulcer at the base of the 4th right metatarsal with a tracking fluid collection/abscess up into the plantar surface of the toe. She has associated leukocytosis and elevated inflammatory markers. Patient been placed on empiric antibiotic therapy with cefepime, vancomycin and Flagyl. Dr. Raza was consulted from the ER as he was on-call for Orthopedic surgery. Blood cultures were obtained and are pending. Will repeat CBC with diff in the a.m. Patient does elevated creatinine from her last labs within our system from 2 years ago. Her creatinine is 1.2 up from 0.6. Given that the patient does have mild lactic acidosis, he mild hyponatremia and some hypo Mary Grace me I suspect she is volume depleted and or may have a component of acute kidney injury resulting in creatinine elevation. I am less suspicious of the patient having developed chronic kidney disease in the interval. Given the above factors. Patient did receive 1 L fluid bolus in the ER. Will continue IV fluid hydration overnight and re-evaluate electrolyte panel in a.m.. Patient does have hypokalemia and received 40 of IV potassium and 40 of p.o. potassium. BMP is been ordered for a.m.. Patient does have type 2 diabetes mellitus with associated neuropathy but she is currently euglycemic and her hemoglobin A1c is 5.2. She will be placed on low-dose sliding scale insulin with Accu-Cheks q.6 hours while NPO with hypoglycemia protocol as needed. Will evaluate patient's home med rec wants it is been reconciled and resume patient's home medications as clinically appropriate. Will hold nephrotoxic medications. If the patient is still on thiazide diuretics will hold these in the setting of acute hyponatremia. Quality VTE Prophylaxis VTE prophylaxis: pharmacologic ordered (Lovenox 40 mg subQ daily.) Hospitalist [facility] Advance Care Plan I have confirmed that the patient's Advanced Care Plan is present, code status is documented, or surrogate decision maker is listed in patient medical record.: Yes Medication Reconciliation I have utilized all available resources to obtain, update and review the patients current medications (includes all prescriptions, OTC, herbals, cannabis, and nutritional supplements).: Yes
[2024-07-08 22:00] VITALS: BP 103/50; PULSE 69; RESP 16; O2SAT 96
--- NOTE | 2024-07-08 23:54 | PC.NURSE ---
Glucose 92
[2024-07-08] MEDS: ACETAMINOPHEN 500 MG TABLET 1000 MG PO (23:57)
[2024-07-08] MEDS: ALPRAZolam (*CRX) 0.5 MG TABLET PO (23:57)
[2024-07-09] VITALS (11 sets, daily range): BP systolic 91–112; BP diastolic 43–62; PULSE 63–86; RESP 12–20; TEMP 36.6–37; O2SAT 96–98; BMI 31.4
[2024-07-09] LABS: Lactic Acid 1.2 mmol/L (0.7-2.0)
[2024-07-09 00:04] LABS: Glucose Point of Care 92 mg/dl (65-105)
[2024-07-09] MEDS: traZODone HCL 50 MG TABLET 100 MG PO ×2 (00:23→20:07)
[2024-07-09] MEDS: ALPRAZolam (*CRX) 0.5 MG TABLET PO (00:23)
[2024-07-09] MEDS: SODIUM CHLORIDE 0.9% IV 1,000 ML 100 ML IV CONT ×3 (00:23→23:24)
--- NOTE | 2024-07-09 05:31 | PC.NURSE ---
Glucose 97. Per protocol, no insulin to be given.
[2024-07-09 05:32] LABS: Glucose Point of Care 97 mg/dl (65-105)
[2024-07-09 05:35] LABS: Basophils Absolute Auto 0.1 K/mm3 (0.0-0.1); Basophils Percent Auto 0.3 % (0.2-1.2); Eosinophils Absolute Auto 0.2 K/mm3 (0-0.3); Eosinophils Percent Auto 1.2 % (0-4.4); Hemoglobin 10.7 g/dL (12.0-15.0); Immature Granulocyte Absolute 0.07 K/mm3 (0.00-0.031); Immature Granulocyte Percent A 0.5 % (0-0.5); Lymphocytes Absolute Auto 1.63 K/mm3 (0.9-3.2); Lymphocytes Percent Auto 10.5 % (18.3-44.2); Mean Corpuscular HGB Conc 34.5 g/dl (32-36); Mean Corpuscular Hemoglobin 31.1 pg (26-34); Mean Corpuscular Volume 90.1 fl (80-100); Mean Platelet Volume 9.4 fl (7.4-10.4); Monocytes Absolute Auto 2.2 K/mm3 (0.1-0.6); Monocytes Percent Auto 14.4 % (2.6-8.5); Neutrophils Absolute Auto 11.3 K/mm3 (1.3-6.7); Neutrophils Percent Auto 73.1 % (45.5-73.1); Platelet Count Result 232 k/mm3 (150-375); Red Blood Count 3.44 M/mm3 (4.2-5.4); Red Cell Distribution Width 13.6 % (11.5-14.5); White Blood Count 15.5 K/mm3 (4.5-10.0)
[2024-07-09] MEDS: metroNIDAZOLE 500 MG/ISO 100ML 500 MG/100 ML BAG 100 MG IVPB ×3 (05:41→22:54)
[2024-07-09 05:49] LABS: Anion Gap -2 mmol/L (4-12); Blood Urea Nitrogen 19 mg/dL (7-17); Carbon Dioxide 36 mmol/L (22-30); Chloride 101 mmol/L (98-107); Estimated CRCL calculation 50 ml/min; Estimated Glomerular Filt Rate 55; Glucose 106 mg/dL (65-110); Magnesium 1.9 mg/dL (1.6-2.3); Sodium 135 mmol/L (137-145)
[2024-07-09 09:03] LABS: Glucose Point of Care 104 mg/dl (65-105)
[2024-07-09] MEDS: ENOXAPARIN 40 MG/0.4 ML SYRINGE SUB-Q (10:18)
[2024-07-09] MEDS: DULoxetine HCL 60 MG CAPSULE.DR PO (10:18)
[2024-07-09] MEDS: CEFEPIME 1 GM/NS 50 ML 1 GM/50 ML BAG IVPB ×2 (10:19→20:06)
--- NOTE | 2024-07-09 11:44 | PC.NURSE ---
Dr. Tineo office called x2 without answer. Wound care called x2 without answer.
[2024-07-09] MEDS: SILVER SULFADIAZINE 1% CR 50 GM JAR (*BKC) 1 APPLIC (12:07)
[2024-07-09 12:15] LABS: Glucose Point of Care 116 mg/dl (65-105)
[2024-07-09] MEDS: ACETAMINOPHEN 500 MG TABLET 1000 MG PO ×2 (12:15→22:52)
--- NOTE | 2024-07-09 12:30 | PC.NURSE ---
Pt c/o increased throbbing in R foot. prn tylenol administered
--- NOTE | 2024-07-09 14:22 | PM.IMPN ---
Progress Note: A&P Assessment and Plan (1) Cellulitis and abscess of toe of right foot: Code(s): L03.031 - Cellulitis of right toe; L02.611 - Cutaneous abscess of right foot Status: Acute Assessment and Plan: Consult Ortho. Imaging shows abscess formation. Suspect degree of gangrene Continue prn pain meds Continue abx of Vanc, Cefepime and Flagyl. Not meeting sepsis criteria. (2) Ulcer of foot due to type 2 diabetes mellitus: Code(s): E11.621 - Type 2 diabetes mellitus with foot ulcer; L97.509 - Non-pressure chronic ulcer of other part of unspecified foot with unspecified severity Status: Acute Assessment and Plan: Awaiting surgery recommendation See #1 (3) Hypokalemia: Code(s): E87.6 - Hypokalemia Status: Acute Assessment and Plan: Low at 2.8 on arrival. Received initial 40 mEq po and IV in ER. Repeat potassium 3.0. Pt given another 40 mEq po Will trend with daily labs. (4) CHRISTIANA (acute kidney injury): Code(s): N17.9 - Acute kidney failure, unspecified Status: Acute Assessment and Plan: Continue to monitor. Cr/BUN today 1.0/19. Receiving IVF. (5) Type 2 diabetes mellitus: Qualifiers: Diabetes mellitus shelter insulin use: without utility driver use Diabetes mellitus complication status: with neurologic complications Diabetes mellitus complication detail: with polyneuropathy Qualified Code(s): E11.42 - Type 2 diabetes mellitus with diabetic polyneuropathy Code(s): E11.9 - Type 2 diabetes mellitus without complications Status: Acute Assessment and Plan: Check A1C Continue SSI Hypoglycemic protocol Glucose checks AC and HS and PRN Diabetic diet Time Spent With Patient Time with patient: 25 - 35 minutes Subjective Date/time seen: 07/09/24 1100 Interval history: This pt was examined at bedside awaiting a bed on the medical floor. She states she has some pain in the right foot at the site of the infection, but denies any other acute complaints such as dyspnea, CP. We are currently awaiting Surgical evaluation. Review of Systems Review of Systems: All systems reviewed & are unremarkable except as noted in HPI and below Exam Const: General: no acute distress Other: obese female pt lying supine on stretcher at this time. HENMT: Mouth: Yes moist mucous membranes Eyes: General: appearance normal, both eyes and all related structures Neck: Neck: supple and no JVD Resp: Effort & Inspection: normal respiratory effort Auscultation: clear to auscultation bilaterally Cardio: Rate: regular rate Rhythm: regular rhythm Heart sounds: no gallops, no murmurs and no rubs GI: Inspection: non-distended GI Palp: Yes Soft to palpation and No Tenderness to palpation present (GI) Auscultation: normal bowel sounds Skin: Wounds: wounds noted (Right foot) ulceration right dorsal foot with surrounding erythema and other (4th toe dusky/necrotic - small ulcer plantar surface at MT head.) Other: Pedal pulse in BLE 2+ Neuro: Speech: normal speech Motor exam (neuro): 5/5 motor strength present throughout and Normal motor muscle tone present throughout Sensory Exam: normal sensation Extrem: General: normal exam except as noted Psych: Mental Status: mental status grossly normal Objective Data Vital Signs Vital Signs: Vital Signs - 24 hr 07/08/24 17:28 07/08/24 18:58 07/08/24 20:00 Temperature 99.1 F Pulse Rate 74 90 82 Respiratory Rate 18 18 18 Blood Pressure 135/56 L 105/45 L 108/58 L Pulse Oximetry 98 96 96 07/08/24 22:00 07/09/24 00:00 07/09/24 03:21 Temperature Pulse Rate 69 70 66 Respiratory Rate 16 16 12 Blood Pressure 103/50 L 108/53 L 96/54 L Pulse Oximetry 96 96 98 07/09/24 06:01 07/09/24 07:39 07/09/24 09:19 Temperature 97.8 F Pulse Rate 63 68 71 Respiratory Rate 18 17 18 Blood Pressure 91/46 L 110/50 L 102/47 L Pulse Oximetry 97 97 97 07/09/24 10:47 07/09/24 12:28 Temperature Pulse Rate 74 82 Respiratory Rate 20 17 Blood Pressure 97/48 L 104/62 Pulse Oximetry 97 98 Intake/Output Intake/Output: Intake & Output 07/06/24 07/07/24 07/08/24 07/09/24 23:59 23:59 23:59 23:59 Intake Total 1650 1670 Balance 1650 1670 Meds/Results Medications: Active Medications Generic Name Dose Route Start Last Admin Trade Name Freq PRN Reason Stop Dose Admin Acetaminophen 1,000 mg 07/08/24 22:18 07/09/24 12:15 Acetaminophen 500 Mg Tablet PO 1,000 mg Q6H PRN Administration Mild Pain (1-3) or Fever Alprazolam 1 mg 07/09/24 03:06 Alprazolam (*Crx) 0.5 Mg Tablet PO BID PRN Anxiety Atorvastatin Calcium 40 mg 07/09/24 21:00 Atorvastatin 40 Mg Tablet PO HS TIFF Dextrose 12.5 gm 07/08/24 22:18 Dextrose 50% 25 Gm/50 Ml Syringe IV PUSH PRN PRN Hypoglycemia Protocol Duloxetine HCl 60 mg 07/09/24 09:00 07/09/24 10:18 Duloxetine Hcl 60 Mg Capsule.Dr PO 60 mg DAILY TIFF Administration Enoxaparin Sodium 40 mg 07/09/24 09:00 07/09/24 10:18 Enoxaparin 40 Mg/0.4 Ml Syringe SUB-Q 40 mg DAILY TIFF Administration Glucagon 1 mg 07/08/24 22:18 Glucagon For Inj 1 Mg Vial IM PRN PRN Hypoglycemia Protocol Glucose 15 gm 07/08/24 22:18 Glucose Oral Gel 15 Gm Of Glucse In 37.5 Gm Tube PO PRN PRN Hypoglycemia Protocol Cefepime HCl 1 gm in 50 mls @ 100 mls/hr 07/09/24 08:00 07/09/24 11:00 Maxipime 1 Gm/Ns 50 Ml IVPB Infused Q12H TIFF Infusion Metronidazole 500 mg in 100 mls @ 100 mls/hr 07/09/24 06:00 07/09/24 14:17 Flagyl 500 Mg/Iso Soln 100 Ml IVPB 100 mls/hr Q8H TIFF Administration Vancomycin HCl 1,250 mg in 250 mls @ 166.667 mls/hr 07/09/24 21:00 Vancomycin 1,250 Mg/Ns 250 Ml IVPB Q24H TIFF Sodium Chloride 1,000 mls @ 100 mls/hr 07/08/24 21:55 07/09/24 12:06 Normal Saline Iv IV CONT 100 mls/hr .Q10H TIFF Administration Dextrose 1,000 mls @ 100 mls/hr 07/08/24 22:18 Dextrose 5% 1,000 Ml IVPB PRN PRN Hypoglycemia Protocol Insulin Aspart 2 - 5 units 07/09/24 00:00 07/09/24 12:08 Insulin Aspart (*Bkc) 100 Units/Ml SUB-Q Not Given Q6HR [facility] Protocol Ondansetron HCl 4 mg 07/08/24 22:18 Ondansetron Inj 4 Mg/2 Ml Vial IV PUSH Q4H PRN Nausea Trazodone HCl 100 mg 07/09/24 21:00 Trazodone Hcl 50 Mg Tablet PO [facility] Radiology Results: ITS Impressions Foot CT 07/08/24 19:41 IMPRESSION: Tract of fluid attenuation within the area of clinical concern, as detailed above. The entirety of this collection is likely visible with ultrasound, if needed for drainage. Labs Labs: Laboratory Results - last 24 hr 07/08/24 07/08/24 07/08/24 18:02 18:04 18:31 WBC 18.1 H RBC 4.39 Hgb 13.6 D Hct 38.8 MCV 88.4 MCH 31.0 MCHC 35.1 RDW 13.4 Plt Count 292 MPV 9.7 Immature Gran % (Auto) 0.4 Neut % (Auto) 80.2 H Lymph % (Auto) 9.0 L [place] % (Auto) 9.7 H Eos % (Auto) 0.4 Baso % (Auto) 0.3 Lymph # (Auto) 1.63 [place] # (Auto) 1.8 H Eos # (Auto) 0.1 Baso # (Auto) 0.1 Abs Immat Gran (auto) 0.08 H Absolute Neuts (auto) 14.5 H Absolute Nucleated RBC 0.000 Nucleated RBC % 0.0 ESR 79 H Sodium 134 L Potassium 2.8 L* Chloride 89 L Carbon Dioxide > 40 H Anion Gap BUN 19 H Creatinine 1.20 H Estim Creat Clear Calc 42 Estimated GFR 45 L Glucose 157 H POC Capillary Glucose Hemoglobin A1c 5.2 Lactic Acid 2.1 H Calcium 9.4 Magnesium 2.0 Total Bilirubin 2.5 H AST 34 ALT 24 Alkaline Phosphatase 153 H C-Reactive Protein > 27.0 H Total Protein 8.0 Albumin 4.3 07/08/24 07/08/24 07/09/24 23:41 23:52 05:27 WBC 15.5 H RBC 3.44 L Hgb 10.7 L Hct 31.0 L MCV 90.1 MCH 31.1 MCHC 34.5 RDW 13.6 Plt Count 232 MPV 9.4 Immature Gran % (Auto) 0.5 Neut % (Auto) 73.1 Lymph % (Auto) 10.5 L [place] % (Auto) 14.4 H Eos % (Auto) 1.2 Baso % (Auto) 0.3 Lymph # (Auto) 1.63 [place] # (Auto) 2.2 H Eos # (Auto) 0.2 Baso # (Auto) 0.1 Abs Immat Gran (auto) 0.07 H Absolute Neuts (auto) 11.3 H Absolute Nucleated RBC 0.000 Nucleated RBC % 0.0 ESR Sodium 135 L Potassium 3.0 L Chloride 101 Carbon Dioxide 36 H Anion Gap -2 L BUN 19 H Creatinine 1.00 Estim Creat Clear Calc 50 Estimated GFR 55 L Glucose 106 POC Capillary Glucose 92 Hemoglobin A1c Lactic Acid 1.2 Calcium 8.0 L Magnesium 1.9 Total Bilirubin AST ALT Alkaline Phosphatase C-Reactive Protein Total Protein Albumin 07/09/24 07/09/24 07/09/24 05:29 09:00 12:05 WBC RBC Hgb Hct MCV MCH MCHC RDW Plt Count MPV Immature Gran % (Auto) Neut % (Auto) Lymph % (Auto) [place] % (Auto) Eos % (Auto) Baso % (Auto) Lymph # (Auto) [place] # (Auto) Eos # (Auto) Baso # (Auto) Abs Immat Gran (auto) Absolute Neuts (auto) Absolute Nucleated RBC Nucleated RBC % ESR Sodium Potassium Chloride Carbon Dioxide Anion Gap BUN Creatinine Estim Creat Clear Calc Estimated GFR Glucose POC Capillary Glucose 97 104 116 H Hemoglobin A1c Lactic Acid Calcium Magnesium Total Bilirubin AST ALT Alkaline Phosphatase C-Reactive Protein Total Protein Albumin Quality VTE Prophylaxis VTE prophylaxis: pharmacologic ordered
[2024-07-09] MEDS: POTASSIUM CHLORIDE 20 MEQ ER TABLET 40 MEQ PO (15:58)
[2024-07-09 18:06] LABS: Glucose Point of Care 98 mg/dl (65-105)
--- NOTE | 2024-07-09 18:32 | PC.NURSE ---
This patient, Kaitlin Hollis, was admitted to Medical Room 348-01. Patient/family oriented to hospital policies and general routines including ID bracelet, bed and alarms, visiting hours, pain management, procedures, bathroom and other care routines, personal items, smoking policy, room service/diet, and visiting hours. Information on how to activate the Rapid Response Team has been discussed. Patient/Family are encouraged to report perceived risks to care and to ask questions if they do not understand what they are told or what they should do.
[2024-07-09] MEDS: ATORVASTATIN 40 MG TABLET PO (20:06)
[2024-07-09] MEDS: ALPRAZolam (*CRX) 0.5 MG TABLET 1 MG PO (20:24)
[2024-07-09] MEDS: VANCOMYCIN 1,250 MG/NS 250 ML 1,250 MG/250 ML BAG 166.67 MG IVPB (21:03)
[2024-07-09 23:12] LABS: Glucose Point of Care 112 mg/dl (65-105)
[2024-07-10] VITALS (8 sets, daily range): BP systolic 105–120; BP diastolic 45–53; PULSE 62–83; RESP 16–19; TEMP 36.5–37.6; O2SAT 93–97
[2024-07-10] MEDS: metroNIDAZOLE 500 MG/ISO 100ML 500 MG/100 ML BAG 100 MG IVPB (05:31)
[2024-07-10 05:57] LABS: Basophils Percent Auto 0.3 % (0.2-1.2); Eosinophils Absolute Auto 0.3 K/mm3 (0-0.3); Eosinophils Percent Auto 2.3 % (0-4.4); Hematocrit 30.5 % (37.0-47.0); Hemoglobin 10.4 g/dL (12.0-15.0); Immature Granulocyte Absolute 0.05 K/mm3 (0.00-0.031); Immature Granulocyte Percent A 0.4 % (0-0.5); Lymphocytes Percent Auto 16.3 % (18.3-44.2); Mean Corpuscular HGB Conc 34.1 g/dl (32-36); Mean Corpuscular Volume 90.8 fl (80-100); Mean Platelet Volume 9.3 fl (7.4-10.4); Monocytes Absolute Auto 1.4 K/mm3 (0.1-0.6); Monocytes Percent Auto 11.5 % (2.6-8.5); Neutrophils Absolute Auto 8.5 K/mm3 (1.3-6.7); Neutrophils Percent Auto 69.2 % (45.5-73.1); Platelet Count Result 262 k/mm3 (150-375); Red Blood Count 3.36 M/mm3 (4.2-5.4); Red Cell Distribution Width 14.1 % (11.5-14.5); White Blood Count 12.3 K/mm3 (4.5-10.0)
[2024-07-10 06:18] LABS: Alanine Aminotransferase 14 U/L (6-35); Albumin Level 2.8 g/dL (3.5-5.1); Alkaline Phosphatase 107 U/L (38-126); Anion Gap 4 mmol/L (4-12); Aspartate Amino Transferase 23 U/L (14-36); Bilirubin,Total 1.2 mg/dL (0.2-1.3); Blood Urea Nitrogen 11 mg/dL (7-17); Calcium 8.2 mg/dL (8.4-10.2); Carbon Dioxide 30 mmol/L (22-30); Chloride 104 mmol/L (98-107); Estimated CRCL calculation 79 ml/min; Estimated Glomerular Filt Rate > 60; Glucose 93 mg/dL (65-110); Magnesium 1.9 mg/dL (1.6-2.3); Potassium 3.2 mmol/L (3.4-5.0); Sodium 138 mmol/L (137-145)
--- NOTE | 2024-07-10 09:41 | P.PNIM_ITS ---
Progress Note: A&P Assessment and Plan (1) Cellulitis and abscess of toe of right foot: Code(s): L03.031 - Cellulitis of right toe; L02.611 - Cutaneous abscess of right foot Status: Acute Assessment and Plan: * Consulted Dr. Rivka Saavedra * Imaging shows consistent with inflammation/infection and necrosis and possible osteomyelitis * Suspect degree of gangrene * Continue prn pain meds * Continue abx of Vanc, Cefepime and Flagyl. * Pain management * blood cultures pending * Wound Consult. (2) Ulcer of foot due to type 2 diabetes mellitus: Code(s): E11.621 - Type 2 diabetes mellitus with foot ulcer; L97.509 - Non-pressure chronic ulcer of other part of unspecified foot with unspecified severity Status: Acute Assessment and Plan: * Awaiting surgery recommendation * See #1 (3) Hypokalemia: Code(s): E87.6 - Hypokalemia Status: Acute Assessment and Plan: * Low at 2.8 on arrival. * Received initial 40 mEq po and IV in ER. * Repeat potassium 3.0. Pt given another 40 mEq po * Will trend with daily labs. 07/10/2024 * Potassium 3.2 * replenish with 40Meq (4) CHRISTIANA (acute kidney injury): Code(s): N17.9 - Acute kidney failure, unspecified Status: Acute Assessment and Plan: * Continue to monitor. * Cr/BUN today 1.0. * Receiving IVF. RESOLVED (5) Type 2 diabetes mellitus: Qualifiers: Diabetes mellitus complication detail: with polyneuropathy Diabetes mellitus complication status: with neurologic complications Diabetes mellitus bed bug exterminator insulin use: without bed bug exterminator use Qualified Code(s): E11.42 - Type 2 diabetes mellitus with diabetic polyneuropathy Code(s): E11.9 - Type 2 diabetes mellitus without complications Status: Acute Assessment and Plan: * Check A1C * Continue SSI * Hypoglycemic protocol * Glucose checks AC and HS and PRN * Diabetic diet Plan Code status: Full code per patient DVT prophylaxis: SCD Stress ulcer prophylaxis: NA PT/OT notes: Ambulatory Disposition: patient continues admission to the medical unit for diabetic foot wound with possible out osteomyelitis to the right toe. Ortho is following for possible amputation if needed will continue with IV antibiotics cultures pending. Time Spent With Patient Time with patient: 15 - 25 minutes Subjective Date/time seen: 07/10/24 09:41 Interval history: Patient is 89-year-old female admitted for cellulitis of the right great toe IV ABX general surgery consulted 07/10/2024: Assumed Care patient is seen in no acute distress reported mild to moderate pain however she has neuropathy denied any fevers or chills no nausea or vomiting. 4th toe with a necrotic-looking tissue with erythema and swelling, scans with possible osteomyelitis will likely need surgical amputation. Review of Systems Review of Systems: 12 systems were reviewed with pertinent positives and negatives per HPI. Except as documented in the HPI, all other systems were reviewed and are negative. All systems reviewed & are unremarkable except as noted in HPI and below Exam Narrative: Weight 83 kg BMI 31.4 Const: General: no acute distress Other: obese female pt lying supine on stretcher at this time. HENMT: Mouth: Yes moist mucous membranes Other: Mucous membranes are dry, no oral pharyngeal erythema, crowded posterior oropharynx Eyes: General: appearance normal, both eyes and all related structures Other: Pupils are equal and reactive, no scleral icterus, no conjunctival pallor Neck: Neck: supple and no JVD Other: No JVD, no lymphadenopathy Resp: Effort & Inspection: normal respiratory effort Auscultation: clear to auscultation bilaterally Other: Clear to auscultation bilaterally, no increased work of breathing Cardio: Rate: regular rate Rhythm: regular rhythm Heart sounds: no gallops, no murmurs and no rubs Other: Regular rate, regular rhythm, 2+ bilateral radial pedal pulses GI: Inspection: non-distended Auscultation: normal bowel sounds Other: Obese, soft, nontender, normoactive bowel sounds Skin: General skin exam: wounds noted (Right foot) Wounds: wounds noted (Right foot) ulceration right dorsal foot with surrounding erythema and other (4th toe dusky/necrotic - small ulcer plantar surface at MT head.) Other: Pedal pulse in BLE 2+ Neuro: Speech: normal speech Motor exam (neuro): 5/5 motor strength present throughout and Normal motor muscle tone present throughout Sensory Exam: normal sensation Other: Alert orient x4, speech is clear, no facial asymmetry, decreased sensation to bilateral feet, no localizing neurologic deficits noted during the course of conversation Extrem: General: normal exam except as noted Other: Skin erythema in changes as discussed under skin exam, ulcer to the base of the 4th metatarsal with purulent drainage as discussed above, marked skin changes of the 4th toe of the right foot, the 2nd toe of the right foot is deviated upward in his overlapping the 4th toe there is surgical absence of the 3rd toe Psych: Mental Status: mental status grossly normal Other: Appropriate mood and affect, pleasant and cooperative, fair judgment and insight Objective Data Vital Signs Vital Signs: Vital Signs - 24 hr 07/09/24 10:47 07/09/24 12:28 07/09/24 15:36 Temperature Pulse Rate 74 82 68 Respiratory Rate 20 17 16 Blood Pressure 97/48 L 104/62 94/43 L Pulse Oximetry 97 98 96 Oxygen Delivery 07/09/24 16:51 07/09/24 19:34 07/09/24 20:00 Temperature 98.6 F Pulse Rate 68 70 Respiratory Rate 16 20 Blood Pressure 98/47 L 112/53 L Pulse Oximetry 98 98 Oxygen Delivery Room Air 07/09/24 20:00 07/10/24 00:00 07/10/24 04:00 Temperature Pulse Rate 86 72 62 Respiratory Rate Blood Pressure Pulse Oximetry Oxygen Delivery 07/10/24 05:32 Temperature 97.7 F Pulse Rate 68 Respiratory Rate 16 Blood Pressure 105/53 L Pulse Oximetry 97 Oxygen Delivery Intake/Output Intake/Output: Intake & Output 07/07/24 07/08/24 07/09/24 07/10/24 23:59 23:59 23:59 23:59 Intake Total 1650 3170 850 Balance 1650 3170 850 Meds/Results Medications: Active Medications Generic Name Dose Route Start Last Admin Trade Name Freq PRN Reason Stop Dose Admin Acetaminophen 1,000 mg 07/08/24 22:18 07/09/24 22:52 Acetaminophen 500 Mg Tablet PO 1,000 mg Q6H PRN Administration Mild Pain (1-3) or Fever Alprazolam 1 mg 07/09/24 03:06 07/09/24 20:24 Alprazolam (*Crx) 0.5 Mg Tablet PO 1 mg BID PRN Administration Anxiety Atenolol 50 mg 07/10/24 21:00 Atenolol 50 Mg Tablet PO QHS TIFF Atorvastatin Calcium 40 mg 07/09/24 21:00 07/09/24 20:06 Atorvastatin 40 Mg Tablet PO 40 mg HS TIFF Administration Dextrose 12.5 gm 07/08/24 22:18 Dextrose 50% 25 Gm/50 Ml Syringe IV PUSH PRN PRN Hypoglycemia Protocol Duloxetine HCl 60 mg 07/09/24 09:00 07/09/24 10:18 Duloxetine Hcl 60 Mg Capsule.Dr PO 60 mg DAILY TIFF Administration Enoxaparin Sodium 40 mg 07/09/24 09:00 07/09/24 10:18 Enoxaparin 40 Mg/0.4 Ml Syringe SUB-Q 40 mg DAILY TIFF Administration Glucagon 1 mg 07/08/24 22:18 Glucagon For Inj 1 Mg Vial IM PRN PRN Hypoglycemia Protocol Glucose 15 gm 07/08/24 22:18 Glucose Oral Gel 15 Gm Of Glucse In 37.5 Gm Tube PO PRN PRN Hypoglycemia Protocol Cefepime HCl 1 gm in 50 mls @ 100 mls/hr 07/09/24 08:00 07/09/24 20:36 Maxipime 1 Gm/Ns 50 Ml IVPB Infused Q12H TIFF Infusion Metronidazole 500 mg in 100 mls @ 100 mls/hr 07/09/24 06:00 07/10/24 06:31 Flagyl 500 Mg/Iso Soln 100 Ml IVPB Infused Q8H TIFF Infusion Vancomycin HCl 1,250 mg in 250 mls @ 166.667 mls/hr 07/09/24 21:00 07/09/24 22:33 Vancomycin 1,250 Mg/Ns 250 Ml IVPB Infused Q24H TIFF Infusion Sodium Chloride 1,000 mls @ 100 mls/hr 07/08/24 21:55 07/09/24 23:24 Normal Saline Iv IV CONT 100 mls/hr .Q10H TIFF Administration Dextrose 1,000 mls @ 100 mls/hr 07/08/24 22:18 Dextrose 5% 1,000 Ml IVPB PRN PRN Hypoglycemia Protocol Insulin Aspart 2 - 5 units 07/10/24 08:00 Insulin Aspart (*Bkc) 100 Units/Ml SUB-Q TIDWM TIFF Protocol Ondansetron HCl 4 mg 07/08/24 22:18 Ondansetron Inj 4 Mg/2 Ml Vial IV PUSH Q4H PRN Nausea Potassium Chloride 20 meq 07/10/24 09:00 Potassium Chloride 20 Meq Er Tablet PO DAILY TIFF Trazodone HCl 100 mg 07/09/24 21:00 07/09/24 20:07 Trazodone Hcl 50 Mg Tablet PO 100 mg HS TIFF Administration Radiology Results: ITS Impressions Foot CT 07/08/24 19:41 IMPRESSION: Tract of fluid attenuation within the area of clinical concern, as detailed above. The entirety of this collection is likely visible with ultrasound, if needed for drainage. Soft Tissue Ultrasound 07/09/24 20:25 IMPRESSION: 1. Soft tissue swelling with heterogeneous echogenicity involving the plantar aspect of the forefoot centered at the base of the fourth digit correlating with the CT abnormality, consistent with inflammation/infection and necrosis. No significant drainable fluid collection. Note that non-drainable necrosis and abscess can have the same appearance by CT. Labs Labs: Laboratory Results - last 24 hr 07/09/24 07/09/24 07/09/24 12:05 18:03 23:04 WBC RBC Hgb Hct MCV MCH MCHC RDW Plt Count MPV Immature Gran % (Auto) Neut % (Auto) Lymph % (Auto) [place] % (Auto) Eos % (Auto) Baso % (Auto) Lymph # (Auto) [place] # (Auto) Eos # (Auto) Baso # (Auto) Abs Immat Gran (auto) Absolute Neuts (auto) Absolute Nucleated RBC Nucleated RBC % Sodium Potassium Chloride Carbon Dioxide Anion Gap BUN Creatinine Estim Creat Clear Calc Estimated GFR Glucose POC Capillary Glucose 116 H 98 112 H Calcium Magnesium Total Bilirubin AST ALT Alkaline Phosphatase Total Protein Albumin 07/10/24 05:29 WBC 12.3 H RBC 3.36 L Hgb 10.4 L Hct 30.5 L MCV 90.8 MCH 31.0 MCHC 34.1 RDW 14.1 Plt Count 262 MPV 9.3 Immature Gran % (Auto) 0.4 Neut % (Auto) 69.2 Lymph % (Auto) 16.3 L [place] % (Auto) 11.5 H Eos % (Auto) 2.3 Baso % (Auto) 0.3 Lymph # (Auto) 2.00 [place] # (Auto) 1.4 H Eos # (Auto) 0.3 Baso # (Auto) 0.0 Abs Immat Gran (auto) 0.05 H Absolute Neuts (auto) 8.5 H Absolute Nucleated RBC 0.000 Nucleated RBC % 0.0 Sodium 138 Potassium 3.2 L Chloride 104 Carbon Dioxide 30 Anion Gap 4 BUN 11 D Creatinine 0.60 L Estim Creat Clear Calc 79 Estimated GFR > 60 Glucose 93 POC Capillary Glucose Calcium 8.2 L Magnesium 1.9 Total Bilirubin 1.2 AST 23 ALT 14 Alkaline Phosphatase 107 Total Protein 6.0 L Albumin 2.8 L Quality VTE Prophylaxis VTE prophylaxis: pharmacologic ordered -Patient's previous records reviewed on admission -ER notes reviewed in detail on admission -discussed all findings and current treatment plan with patient/Family/POA -Consultations reviewed for recommendations -Patient's disposition for safe discharge discussed with keycase assembler Dictation performed by [employer] direct speech recognition software, therefore informatics spec variants and typographical errors may occur. Hospitalist MIPS Advance Care Plan I have confirmed that the patient's Advanced Care Plan is present, code status is documented, or surrogate decision maker is listed in patient medical record.: Yes Medication Reconciliation I have utilized all available resources to obtain, update and review the patients current medications (includes all prescriptions, OTC, herbals, cannabis, and nutritional supplements).: Yes The patient is not eligible for med reconciliation; the patient is in a emergent medical situation where delaying treatment would jeopardize the patients health.: No
[2024-07-10 09:55] LABS: Glucose Point of Care 88 mg/dl (65-105)
[2024-07-10] MEDS: ENOXAPARIN 40 MG/0.4 ML SYRINGE SUB-Q (10:28)
[2024-07-10] MEDS: POTASSIUM CHLORIDE 20 MEQ ER TABLET PO (10:28)
[2024-07-10] MEDS: DULoxetine HCL 60 MG CAPSULE.DR PO (10:28)
[2024-07-10] MEDS: POTASSIUM CHLORIDE INJ 40 MEQ in SODIUM CHLORIDE 0.9% IV 500 ML 130 MEQ IVPB (10:29)
[2024-07-10] MEDS: CEFEPIME 1 GM/NS 50 ML 1 GM/50 ML BAG IVPB (10:29)
[2024-07-10 13:02] LABS: Glucose Point of Care 126 mg/dl (65-105)
--- NOTE | 2024-07-10 14:55 | P.CONOP_ITS ---
Assessment and Plan Assessment and plan (1) Diabetic foot infection: Code(s): E11.628 - Type 2 diabetes mellitus with other skin complications; L08.9 - Local infection of the skin and subcutaneous tissue, unspecified <ELAYNE Bailey - Last Filed: 07/10/24 15:44> Status: Acute <ELAYNE Bailey - Last Filed: 07/10/24 15:44> Assessment and Plan: History, exam, soft tissue ultrasound and CT scan reviewed. Condition, nature, etiology and course of natural history discussed. Conservative and operative treatment options reviewed as well as the risks and benefits of both. Discussed conservative treatment with IV antibiotics long-term verses surgical intervention with debridement of the right diabetic foot ulcer and 4th ray amputation versus transmetatarsal amputation versus BKA. Wound cultured obtained and sent for STAT Gram stain/aerobic and aerobic cultures. Blood cultures pending. Will await wound culture results and determine next plan of care. Continue conservative treatment in the interim with IV antibiotics, daily dressing changes. Will begin further workup with XR right foot, ABIs. Post op shoe to be obtained. WB on heel only. <ELAYNE Bailey - Last Filed: 07/10/24 15:44> History, exam, soft tissue ultrasound and CT scan reviewed. Condition, nature, etiology and course of natural history discussed. Conservative and operative treatment options reviewed as well as the risks and benefits of both. Discussed conservative treatment with IV antibiotics long-term verses surgical intervention with debridement of the right diabetic foot ulcer and 4th ray amputation versus transmetatarsal amputation versus BKA. Wound cultured obtained and sent for STAT Gram stain/aerobic and aerobic cultures. Blood cultures pending. Will await wound culture results and determine next plan of care. Continue conservative treatment in the interim with IV antibiotics, daily dressing changes. Will begin further workup with XR right foot, ABIs. Post op shoe to be obtained. WB on heel only. Indicated for debridement At the bedside. right foot debrided necrotic skin tissue. Necrotic tissue and fluid from the plantar ulcer expressed removed. Cultures taken And dressing placed. <Lorenzo Tineo MD - Last Filed: 07/10/24 15:56> (2) Type 2 diabetes mellitus: Qualifiers: Diabetes mellitus complication detail: with polyneuropathy Diabetes mellitus complication status: with neurologic complications Diabetes mellitus nursing home insulin use: without terminal supervisor use Qualified Code(s): E11.42 - Type 2 diabetes mellitus with diabetic polyneuropathy <ELAYNE Bailey - Last Filed: 07/10/24 15:44> Code(s): E11.9 - Type 2 diabetes mellitus without complications <ELAYNE Bailey - Last Filed: 07/10/24 15:44> Status: Acute <ELAYNE Bailey - Last Filed: 07/10/24 15:44> Assessment and Plan: Close glycemic control. HgB A1C 5.2% <ELAYNE Bailey - Last Filed: 07/10/24 15:44> (3) Cellulitis and abscess of toe of right foot: Code(s): L03.031 - Cellulitis of right toe; L02.611 - Cutaneous abscess of right foot <ELAYNE Bailey - Last Filed: 07/10/24 15:44> Status: Acute <ELAYNE Bailey - Last Filed: 07/10/24 15:44> (4) Ulcer of foot due to type 2 diabetes mellitus: Code(s): E11.621 - Type 2 diabetes mellitus with foot ulcer; L97.509 - Non- pressure chronic ulcer of other part of unspecified foot with unspecified severity <ELAYNE Bailey - Last Filed: 07/10/24 15:44> Status: Acute <ELAYNE Bailey - Last Filed: 07/10/24 15:44> History of Present Illness HPI Consult date: 07/10/24 <ELAYNE Bailey - Last Filed: 07/10/24 15:44> 07/10/24 <Lorenzo Tineo MD - Last Filed: 07/10/24 15:56> Chief complaint: Cellulitis/Abscess R foot/toes, Diabetic, Hypokale <ELAYNE Bailey - Last Filed: 07/10/24 15:44> Narrative: 69-year-old female presented to the emergency room on 07/08 with complaints of a right foot wound and concern for infection. Per the patient, she noticed an onset of redness and swelling to the right 4th toe which continued to show progression through the forefoot. She was originally evaluated in the urgent care and then directed to the emergency room for further evaluation. She denies fever, chills, night sweats, nausea, vomiting or diarrhea. She does endorse generally feeling unwell for the last several days. She questions whether not she may have stepped on something at some time. She has a history of diabetes and neuropathy. 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 Suarez in January of 2023. A CT scan was obtained of the right foot in the emergency room and revealed no acute fracture. A well-circumscribed fluid collection measuring 21 x 6 x 26mm was noted on the plantar aspect of the fourth toe. An ultrasound was recommended based on CT scan results by radiology. Ultrasound reveals soft tissue swelling on the plantar aspect of the forefoot over the base of the 4th digit consistent with inflammation, infection and necrosis. No significant drainable fluid collection was noted at that time. Patient was admitted for IV antibiotics and orthopedic consultation. <ELAYNE Bailey - Last Filed: 07/10/24 15:44> Review of Systems 2 Review of Systems: All systems reviewed & are unremarkable except as noted in HPI and below <ELAYNE Bailey - Last Filed: 07/10/24 15:44> Constitutional: Constitutional: Denies fever(s) <Lorenzo Tineo MD - Last Filed: 07/10/24 15:56> Eyes: Eyes: Denies blurry vision <oLrenzo Tineo MD - Last Filed: 07/10/24 15:56> ENT: Reports Normal hearing present <Lorenzo Tineo MD - Last Filed: 07/10/24 15:56> Cardiovascular: Cardiovascular: Denies chest pain and Denies dyspnea < Lorenzo Tineo MD - Last Filed: 07/10/24 15:56> Respiratory: Respiratory: Denies dyspnea and Denies wheezing <Lorenzo Tineo MD - Last Filed: 07/10/24 15:56> Gastrointestinal: Gastrointestinal: Denies abdominal pain <Lorenzo Tineo MD - Last Filed: 07/10/24 15:56> Genitourinary: Genitourinary: Denies urinary urgency <Lorenzo Tineo MD - Last Filed: 07/10/24 15:56> Musculoskeletal: Musculoskeletal: Reports as per HPI and Denies numbness < Lorenzo Tineo MD - Last Filed: 07/10/24 15:56> Integumentary/Breasts: Skin/Breast: Denies changing lesions and Denies sores <Lorenzo Tineo MD - Last Filed: 07/10/24 15:56> Neurologic: Reports Normal hearing present, Denies behavioral changes, Denies confusion and Denies convulsions <Lorenzo Tineo MD - Last Filed: 07/10/24 15:56> Psychiatric: Psychiatric: Denies behavioral changes, Denies confusion and Denies hallucinations <Lorenzo Tineo MD - Last Filed: 07/10/24 15:56> Endocrine: Endocrine: Denies heat intolerance <Lorenzo Tineo MD - Last Filed: 07/10/24 15:56> Hematologic/Lymphatic: Hematologic/Lymphatic: Denies easy bleeding <Lorenzo Tineo MD - Last Filed: 07/10/24 15:56> Allergic/Immunologic: Allergic/Immunologic: Denies wheezing <Lorenzo Tineo MD - Last Filed: 07/10/24 15:56> [facility] Past Medical History Medical History: Medical History Obstructive sleep apnea She never followed up for her CPAP titration Diabetic peripheral neuropathy Depression with anxiety Osteoarthritis Hyperlipidemia Hypertension Type 2 diabetes mellitus A1c of 5.2% 07/08/2024 <ELAYNE Bailey - Last Filed: 07/10/24 15:44> Surgical History Surgical History: Surgical History 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 She has 3 cats. Surrogate medical decision maker: Elio Hollis, matilde. Code status: DNR/DNI (however the patient states that she would be okay with pressors and noninvasive ventilator support if needed) Smoking status: Never smoker Alcohol intake: never Substance use: former Substance use type: marijuana Last use: 2000 Do You Feel Safe in your Home?: Yes Lack of Transportation: No Lack of Food: Never True Current Housing: I Have Housing Concerned About Future Housing: No Difficulty Paying Gas/Electric Bills: No Difficulty Paying for Meds: No Currently Unemployed: No Education: Associate Degree Difficulty w/ Childcare or Family Care: No Additional living arrangements comments: She has been since 2019. Her and her were for 48 years prior to his . She has 2 grown children. Lives in own home in [place]. One of her sons recently moved back in with her. 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 Spiritual care concerns: No <ELAYNE Bailey - Last Filed: 07/10/24 15:44> Meds Home Medications and Allergies Home medications: Home Medications ?Medication ?Instructions ?Recorded ?Confirmed ?Type alprazolam 1 mg tablet 1 mg PO BID PRN Anxiety 01/21/23 07/09/24 History atorvastatin 40 mg tablet 40 mg PO HS 01/21/23 07/09/24 History duloxetine 60 mg capsule,delayed 60 mg PO DAILY 01/21/23 07/09/24 History release metformin 500 mg tablet 500 mg PO BID 01/21/23 07/09/24 History trazodone 100 mg tablet 100 mg PO HS 01/21/23 07/09/24 History triamterene 37.5 1 tablet PO DAILY 01/21/23 07/09/24 History mg-hydrochlorothiazide 25 mg tablet atenolol 50 mg tablet 50 mg PO QHS 07/09/24 07/09/24 History potassium chloride 20 mEq 20 meq PO DAILY 07/09/24 07/09/24 History tablet,extended release(part/cryst) <ELAYNE Bailey - Last Filed: 07/10/24 15:44> Allergies/Adverse reactions: Allergies Allergy/AdvReac Type Severity Reaction Status Date / Time No Known Allergies Allergy Verified 07/09/24 09:45 <DAI BaileyP - Last Filed: 07/10/24 15:44> Vital Signs Vital Signs - 24 hr 07/09/24 15:36 07/09/24 16:51 07/09/24 19:34 Temperature 37.0 C Pulse Rate 68 68 70 Respiratory Rate 16 16 20 Blood Pressure 94/43 L 98/47 L 112/53 L Pulse Oximetry 96 98 98 Oxygen Delivery 07/09/24 20:00 07/09/24 20:00 07/10/24 00:00 Temperature Pulse Rate 86 72 Respiratory Rate Blood Pressure Pulse Oximetry Oxygen Delivery Room Air 07/10/24 04:00 07/10/24 05:32 07/10/24 10:28 Temperature 36.5 C Pulse Rate 62 68 Respiratory Rate 16 Blood Pressure 105/53 L Pulse Oximetry 97 Oxygen Delivery Room Air 07/10/24 10:28 07/10/24 12:00 07/10/24 14:00 Temperature 36.9 C Pulse Rate 66 83 76 Respiratory Rate 19 Blood Pressure 120/46 L Pulse Oximetry 97 Oxygen Delivery <DAI BaileyP - Last Filed: 07/10/24 15:44> Exam 2 Const: General: cooperative and average body habitus <ELAYNE Bailey - Last Filed: 07/10/24 15:44> Nutritional Appearance: average body habitus <ELAYNE Bailey - Last Filed: 07/10/24 15:44> Orientation/consciousness: patient oriented x3 <ELAYNE Bailey - Last Filed: 07/10/24 15:44> Limitations: no limitations <ELAYNE Bailey - Last Filed: 07/10/24 15:44> HENMT: Head: normal to inspection <DAI BaileyP - Last Filed: 07/10/24 15:44> Ears: hearing grossly normal bilaterally <DAI BaileyP - Last Filed: 07/10/24 15:44> Face/Nose/Sinus: Normal external nose present and normal facial exam <DAI BaileyP - Last Filed: 07/10/24 15:44> Face and sinus: normal facial exam <DAI BaileyP - Last Filed: 07/10/24 15:44> Mouth: Yes moist mucous membranes <DAI BaileyP - Last Filed: 07/10/24 15:44> Teeth and gingiva: dentition normal <DAI BaileyP - Last Filed: 07/10/24 15:44> Eyes: General: appearance normal, both eyes and all related structures < DAI BaileyP - Last Filed: 07/10/24 15:44> Pupils: Equal, round and reactive pupils present <DAI BaileyP - Last Filed: 07/10/24 15:44> EOM: EOMs intact bilaterally <DAI BaileyP - Last Filed: 07/10/24 15:44> Neck: Neck: normal visual inspection <DAI BaileyP - Last Filed: 07/10/24 15:44> Chest: Chest palpation & inspection: normal inspection of the chest < DAI BaileyP - Last Filed: 07/10/24 15:44> Resp: Effort & Inspection: normal respiratory effort and able to speak in complete sentences <DAI BaileyP - Last Filed: 07/10/24 15:44> Cardio: Jugular venous distension: no JVD <DAI BaileyP - Last Filed: 07/10/24 15:44> Neuro: General: patient oriented x3 <DAI BaileyP - Last Filed: 07/10/24 15:44> Cranial nerves: Yes Equal, round and reactive pupils present <ELAYNE Bailey - Last Filed: 07/10/24 15:44> Extrem: Right lower extremity: foot Details: tenderness (mild, diffuse ), abnormal ROM of toe (3rd ray amp, severe hallux valgus), warmth (4th toe, forefoot swelling) Location: of the plantar foot, crepitus, vascular exam Details: dorsalis pedis pulse present (faintly palpable) and motor-sensory exam Details: light-touch abnormal <ELAYNE Bailey - Last Filed: 07/10/24 15:44> Other: Redness/warmth and swelling of the 4th toe extending into the plantar forefoot and dorsal midfoot. Wound on the plantar aspect of the 4th MTP which extends through the webspace of the 4th/5th ray. Malodorous, purulent drainage. Necrosis of soft tissue noted. <ELAYNE Bailey - Last Filed: 07/10/24 15:44> Other: Redness/warmth and swelling of the 4th toe extending into the plantar forefoot and dorsal midfoot. 1 cm Wound on the plantar aspect of the 4th MTP which extends through the webspace of the 4th/5th ray. Malodorous, purulent drainage. Necrosis of soft tissue noted. <Lorenzo Tineo MD - Last Filed: 07/10/24 15:56> Psych: Mental Status: mental status grossly normal <ELAYNE Bailey - Last Filed: 07/10/24 15:44> Results Labs Result Diagrams: 07/10/24 05:29 07/10/24 05:29 <ELAYNE Bailey - Last Filed: 07/10/24 15:44> Labs: Abnormal lab results 07/09/24 07/10/24 07/10/24 Range/Units 23:04 05:29 12:59 WBC 12.3 H (4.5-10.0) K/mm3 RBC 3.36 L (4.2-5.4) M/mm3 Hgb 10.4 L (12.0-15.0) g/dL Hct 30.5 L (37.0-47.0) % Lymph % (Auto) 16.3 L (18.3-44.2) % [place] % (Auto) 11.5 H (2.6-8.5) % [place] # (Auto) 1.4 H (0.1-0.6) K/mm3 Abs Immat Gran (auto) 0.05 H (0.00-0.031) K/mm3 Absolute Neuts (auto) 8.5 H (1.3-6.7) K/mm3 Potassium 3.2 L (3.4-5.0) mmol/L Creatinine 0.60 L (0.7-1.0) mg/dL POC Capillary Glucose 112 H 126 H (65-105) mg/dl Calcium 8.2 L (8.4-10.2) mg/dL Total Protein 6.0 L (6.3-8.2) g/dL Albumin 2.8 L (3.5-5.1) g/dL H & H 07/08/24 07/09/24 07/10/24 Range/Units 18:04 05:27 05:29 Hgb 13.6 D 10.7 L 10.4 L (12.0-15.0) g/dL Hct 38.8 31.0 L 30.5 L (37.0-47.0) % All other labs normal. <DAI BaileyP - Last Filed: 07/10/24 15:44> Abnormal lab results 07/09/24 07/10/24 07/10/24 Range/Units 23:04 05:29 12:59 WBC 12.3 H (4.5-10.0) K/mm3 RBC 3.36 L (4.2-5.4) M/mm3 Hgb 10.4 L (12.0-15.0) g/dL Hct 30.5 L (37.0-47.0) % Lymph % (Auto) 16.3 L (18.3-44.2) % [place] % (Auto) 11.5 H (2.6-8.5) % [place] # (Auto) 1.4 H (0.1-0.6) K/mm3 Abs Immat Gran (auto) 0.05 H (0.00-0.031) K/mm3 Absolute Neuts (auto) 8.5 H (1.3-6.7) K/mm3 Potassium 3.2 L (3.4-5.0) mmol/L Creatinine 0.60 L (0.7-1.0) mg/dL POC Capillary Glucose 112 H 126 H (65-105) mg/dl Calcium 8.2 L (8.4-10.2) mg/dL Total Protein 6.0 L (6.3-8.2) g/dL Albumin 2.8 L (3.5-5.1) g/dL H & H 07/08/24 07/09/24 07/10/24 Range/Units 18:04 05:27 05:29 Hgb 13.6 D 10.7 L 10.4 L (12.0-15.0) g/dL Hct 38.8 31.0 L 30.5 L (37.0-47.0) % <Lorenzo Tineo MD - Last Filed: 07/10/24 15:56> Diagnostic results Ankle/Foot CT: image reviewed ( right foot CT scan shows necrotic changes base of the 4th toe Soft tissue. No bone changes.) <Lorenzo Tineo MD - Last Filed: 07/10/24 15:56>
[2024-07-10] MEDS: metroNIDAZOLE 500 MG TABLET PO ×2 (15:45→21:40)
[2024-07-10] MEDS: ALPRAZolam (*CRX) 0.5 MG TABLET 1 MG PO ×2 (15:46→21:40)
--- NOTE | 2024-07-10 15:56 | W.PM.PROC2 ---
Procedure Note - Detailed Date of Procedure 07/10/24 Pre-op Diagnosis Cellulitis/Abscess R foot/toes, Diabetic, Hypokale Post-op Diagnosis Same Procedure Performed right foot excisional debridement of skin and subcutaneous tissue Surgeon Lorenzo Tineo MD Work Study Student Carrie Arevalo [facility] Anesthesia None Indications 69-year-old woman with severe peripheral neuropathy and previous right toe amputation admitted for right 4th toe infection, cellulitis plantar ulcer. Indicated for debridement. Findings 1 cm plantar ulcer which communicates with the 4th intermetatarsal space and dorsum of the foot. Necrotic tissue in the depth. Necrotic skin around the 4th toe and plantar foot. Reasonably good blood flow. Description of Procedure Consent obtained. Patient identified. Right foot prepped with alcohol prep solution. Excisional debridement of the skin, subcutaneous tissue of the right plantar forefoot and 4th toe. Necrotic skin and subcutaneous tissue sharply removed and passed off. Cotton tip applicator used for debridement of the ulcer and intermetatarsal space. Necrotic tissue removed from the ulcer. Cultures taken. Sterile dressing applied. Estimated Blood Loss 2 Tourniquet Time Total Tourniquet Time: 0 Drains No Packing Yes Pathology Yes ( Aerobic, anaerobic culture. Stat Gram stain) Complications None Condition Stable Disposition No change [facility] Billing Surgery - Charge Forward: Surgery Billing ([id number])
[2024-07-10 17:22] LABS: Glucose Point of Care 106 mg/dl (65-105)
[2024-07-10] MEDS: ATORVASTATIN 40 MG TABLET PO (20:12)
[2024-07-10] MEDS: CEFEPIME 2 GM/NS 50 ML 2 GM/50 ML BAG IVPB (20:12)
[2024-07-10] MEDS: atenoloL 50 MG TABLET PO (20:12)
[2024-07-10] MEDS: ACETAMINOPHEN 500 MG TABLET 1000 MG PO (20:12)
[2024-07-10 20:38] LABS: Glucose Point of Care 183 mg/dl (65-105)
[2024-07-10 20:45] LABS: Vancomycin Trough 5.7 ug/mL (10.0-20.0)
[2024-07-10] MEDS: traZODone HCL 50 MG TABLET 100 MG PO (21:40)
[2024-07-10] MEDS: VANCOMYCIN 1,250 MG/NS 250 ML 1,250 MG/250 ML BAG 166.67 MG IVPB (22:03)
[2024-07-11] VITALS (8 sets, daily range): BP systolic 103–139; BP diastolic 50–73; PULSE 55–85; RESP 16; TEMP 36.1–37.2; O2SAT 92–100
[2024-07-11] MEDS: metroNIDAZOLE 500 MG TABLET PO ×3 (05:48→20:41)
[2024-07-11 06:33] LABS: Estimated CRCL calculation 99 ml/min; Estimated Glomerular Filt Rate > 60
[2024-07-11 07:26] LABS: Glucose Point of Care 102 mg/dl (65-105)
[2024-07-11 08:26] LABS: Basophils Percent Auto 0.4 % (0.2-1.2); Eosinophils Absolute Auto 0.3 K/mm3 (0-0.3); Eosinophils Percent Auto 2.9 % (0-4.4); Hematocrit 31.6 % (37.0-47.0); Hemoglobin 10.5 g/dL (12.0-15.0); Immature Granulocyte Absolute 0.08 K/mm3 (0.00-0.031); Immature Granulocyte Percent A 0.8 % (0-0.5); Lymphocytes Absolute Auto 2.12 K/mm3 (0.9-3.2); Lymphocytes Percent Auto 20.2 % (18.3-44.2); Mean Corpuscular HGB Conc 33.2 g/dl (32-36); Mean Corpuscular Hemoglobin 30.8 pg (26-34); Mean Corpuscular Volume 92.7 fl (80-100); Mean Platelet Volume 9.7 fl (7.4-10.4); Monocytes Absolute Auto 1.2 K/mm3 (0.1-0.6); Neutrophils Absolute Auto 6.8 K/mm3 (1.3-6.7); Neutrophils Percent Auto 64.7 % (45.5-73.1); Platelet Count Result 308 k/mm3 (150-375); Red Blood Count 3.41 M/mm3 (4.2-5.4); Red Cell Distribution Width 14.4 % (11.5-14.5); White Blood Count 10.5 K/mm3 (4.5-10.0)
[2024-07-11] MEDS: POTASSIUM CHLORIDE 20 MEQ ER TABLET PO (08:34)
[2024-07-11] MEDS: DULoxetine HCL 60 MG CAPSULE.DR PO (08:34)
[2024-07-11] MEDS: ENOXAPARIN 40 MG/0.4 ML SYRINGE SUB-Q (08:34)
[2024-07-11] MEDS: CEFEPIME 2 GM/NS 50 ML 2 GM/50 ML BAG IVPB ×2 (08:35→20:41)
[2024-07-11 09:45] LABS: Alanine Aminotransferase 14 U/L (6-35); Albumin Level 2.7 g/dL (3.5-5.1); Alkaline Phosphatase 107 U/L (38-126); Anion Gap 3 mmol/L (4-12); Aspartate Amino Transferase 29 U/L (14-36); Bilirubin,Total 0.7 mg/dL (0.2-1.3); Blood Urea Nitrogen 9 mg/dL (7-17); Calcium 8.3 mg/dL (8.4-10.2); Carbon Dioxide 26 mmol/L (22-30); Chloride 110 mmol/L (98-107); Estimated CRCL calculation 87 ml/min; Estimated Glomerular Filt Rate > 60; Glucose 101 mg/dL (65-110); Magnesium 2.2 mg/dL (1.6-2.3); Potassium 3.9 mmol/L (3.4-5.0); Sodium 139 mmol/L (137-145)
[2024-07-11] MEDS: VANCOMYCIN 1,250 MG/NS 250 ML 1,250 MG/250 ML BAG 166.67 MG IVPB (09:51)
[2024-07-11 11:57] LABS: Glucose Point of Care 109 mg/dl (65-105)
--- NOTE | 2024-07-11 12:37 | P.PNIM_ITS ---
Progress Note: A&P Assessment and Plan (1) Cellulitis and abscess of toe of right foot: Code(s): L03.031 - Cellulitis of right toe; L02.611 - Cutaneous abscess of right foot Status: Acute Assessment and Plan: * Consulted Dr. Rivka Saavedra * Imaging shows consistent with inflammation/infection and necrosis and possible osteomyelitis * Suspect degree of gangrene * Continue prn pain meds * Continue abx of Vanc, Cefepime and Flagyl. * Pain management * blood cultures pending * Wound Consult. 07/11: Patient underwent OR debridement of wound with necrotic tissue removed Pending wound cultures patient continues on cefepime, vancomycin and flagyl (2) Ulcer of foot due to type 2 diabetes mellitus: Code(s): E11.621 - Type 2 diabetes mellitus with foot ulcer; L97.509 - Non-pressure chronic ulcer of other part of unspecified foot with unspecified severity Status: Acute Assessment and Plan: * Awaiting surgery recommendation * See #1 (3) Hypokalemia: Code(s): E87.6 - Hypokalemia Status: Acute Assessment and Plan: * Low at 2.8 on arrival. * Received initial 40 mEq po and IV in ER. * Repeat potassium 3.0. Pt given another 40 mEq po * Will trend with daily labs. 07/10/2024 * Potassium 3.2 * replenish with 40Meq 07/11: Potassium 3.9, magnesium 2.2 (4) CHRISTIANA (acute kidney injury): Code(s): N17.9 - Acute kidney failure, unspecified Status: Acute Assessment and Plan: * Continue to monitor. * Cr/BUN today . * Receiving IVF. RESOLVED 07/11: No current IV fluids, patient tolerating diet and renal function back to baseline (5) Type 2 diabetes mellitus: Qualifiers: Diabetes mellitus track repairer helper insulin use: without fdc use Diabetes mellitus complication status: with neurologic complications Diabetes mellitus complication detail: with polyneuropathy Qualified Code(s): E11.42 - Type 2 diabetes mellitus with diabetic polyneuropathy Code(s): E11.9 - Type 2 diabetes mellitus without complications Status: Acute Assessment and Plan: * Check A1C * Continue SSI * Hypoglycemic protocol * Glucose checks AC and HS and PRN * Diabetic diet Plan Code status: Full code per patient DVT prophylaxis: SCD Stress ulcer prophylaxis: NA PT/OT notes: Ambulatory with post op shoe Disposition: patient continues admission to the medical unit for diabetic foot wound s/p debridement, cultures pending, further recs per Ortho Time Spent With Patient Time with patient: 25 - 35 minutes Subjective Date/time seen: 07/11/24 12:37 Interval history: Patient reports pain and drainage from right foot and thought it was going to be amputated. Uncertain plan but Ortho did debridement and we are pending wound cultures at this time. Patient denies other symptoms on ROS. Review of Systems Review of Systems: All systems reviewed & are unremarkable except as noted in HPI and below Exam Narrative: GENERAL: Well-appearing, well-nourished, and in no acute distress. HEAD: Normocephalic, atraumatic. ENT:? Mucous membranes moist. CHEST: Clear to auscultation.? No respiratory distress. HEART: Regular rate and rhythm. ? Normal peripheral pulses. ABDOMEN: Soft, nontender, nondistended. EXTREMITIES: Normal range of motion. Right foot with bandage and post op shoe, longoria drainage noted on bandage. SKIN: Warm dry normal color NEURO: Alert and oriented x3. PSYCH: Normal mood and affect Objective Data Vital Signs Vital Signs: Vital Signs - 24 hr 07/10/24 14:00 07/10/24 16:00 07/10/24 20:00 Temperature 36.9 C Pulse Rate 76 64 Respiratory Rate 19 Blood Pressure 120/46 L Pulse Oximetry 97 Oxygen Delivery Room Air 07/10/24 20:00 07/10/24 20:00 07/11/24 00:00 Temperature 37.6 C H Pulse Rate 79 79 58 L Respiratory Rate 16 Blood Pressure 120/45 L Pulse Oximetry 93 Oxygen Delivery 07/11/24 04:00 07/11/24 05:45 Temperature 36.1 C L Pulse Rate 55 L 61 Respiratory Rate 16 Blood Pressure 103/50 L Pulse Oximetry 97 Oxygen Delivery Intake/Output Intake/Output: Intake & Output 07/08/24 07/09/24 07/10/24 07/11/24 23:59 23:59 23:59 23:59 Intake Total 1650 3170 3917 870 Balance 1650 3170 3917 870 Meds/Results Medications: Active Medications Generic Name Dose Route Start Last Admin Trade Name Freq PRN Reason Stop Dose Admin Acetaminophen 1,000 mg 07/08/24 22:18 07/10/24 20:12 Acetaminophen 500 Mg Tablet PO 1,000 mg Q6H PRN Administration Mild Pain (1-3) or Fever Alprazolam 1 mg 07/09/24 03:06 07/10/24 21:40 Alprazolam (*Crx) 0.5 Mg Tablet PO 1 mg BID PRN Administration Anxiety Atenolol 50 mg 07/10/24 21:00 07/10/24 20:12 Atenolol 50 Mg Tablet PO 50 mg QHS TIFF Administration Atorvastatin Calcium 40 mg 07/09/24 21:00 07/10/24 20:12 Atorvastatin 40 Mg Tablet PO 40 mg HS TIFF Administration Dextrose 12.5 gm 07/08/24 22:18 Dextrose 50% 25 Gm/50 Ml Syringe IV PUSH PRN PRN Hypoglycemia Protocol Duloxetine HCl 60 mg 07/09/24 09:00 07/11/24 08:34 Duloxetine Hcl 60 Mg Capsule.Dr PO 60 mg DAILY TIFF Administration Enoxaparin Sodium 40 mg 07/09/24 09:00 07/11/24 08:34 Enoxaparin 40 Mg/0.4 Ml Syringe SUB-Q 40 mg DAILY TIFF Administration Glucagon 1 mg 07/08/24 22:18 Glucagon For Inj 1 Mg Vial IM PRN PRN Hypoglycemia Protocol Glucose 15 gm 07/08/24 22:18 Glucose Oral Gel 15 Gm Of Glucse In 37.5 Gm Tube PO PRN PRN Hypoglycemia Protocol Dextrose 1,000 mls @ 100 mls/hr 07/08/24 22:18 Dextrose 5% 1,000 Ml IVPB PRN PRN Hypoglycemia Protocol Cefepime HCl 2 gm in 50 mls @ 100 mls/hr 07/10/24 21:00 07/11/24 09:20 Maxipime 2 Gm/Ns 50 Ml IVPB Infused Q12HR TIFF Infusion Vancomycin HCl 1,250 mg in 250 mls @ 166.667 mls/hr 07/11/24 09:00 07/11/24 11:21 Vancomycin 1,250 Mg/Ns 250 Ml IVPB Infused Q12H TIFF Infusion Insulin Aspart 2 - 5 units 07/10/24 08:00 07/11/24 10:47 Insulin Aspart (*Bkc) 100 Units/Ml SUB-Q Not Given TIDWM [facility] Protocol Metronidazole 500 mg 07/10/24 15:00 07/11/24 05:48 Metronidazole 500 Mg Tablet PO 500 mg Q8HR TIFF Administration Ondansetron HCl 4 mg 07/08/24 22:18 Ondansetron Inj 4 Mg/2 Ml Vial IV PUSH Q4H PRN Nausea Potassium Chloride 20 meq 07/10/24 09:00 07/11/24 08:34 Potassium Chloride 20 Meq Er Tablet PO 20 meq DAILY TIFF Administration Trazodone HCl 100 mg 07/09/24 21:00 07/10/24 21:40 Trazodone Hcl 50 Mg Tablet PO 100 mg HS TIFF Administration Radiology Results: ITS Impressions Foot CT 07/08/24 19:41 IMPRESSION: Tract of fluid attenuation within the area of clinical concern, as detailed above. The entirety of this collection is likely visible with ultrasound, if needed for drainage. Soft Tissue Ultrasound 07/09/24 20:25 IMPRESSION: 1. Soft tissue swelling with heterogeneous echogenicity involving the plantar aspect of the forefoot centered at the base of the fourth digit correlating with the CT abnormality, consistent with inflammation/infection and necrosis. No significant drainable fluid collection. Note that non-drainable necrosis and abscess can have the same appearance by CT. Foot X-Ray 07/10/24 19:35 IMPRESSION: As above. Ankle Brachial Index 07/10/24 20:09 IMPRESSION: Markedly diminished toe brachial index bilaterally. Normal MONIKA bilaterally Labs Labs: Laboratory Results - last 24 hr 07/10/24 07/10/24 07/10/24 12:59 17:06 19:54 WBC RBC Hgb Hct MCV MCH MCHC RDW Plt Count MPV Immature Gran % (Auto) Neut % (Auto) Lymph % (Auto) [place] % (Auto) Eos % (Auto) Baso % (Auto) Lymph # (Auto) [place] # (Auto) Eos # (Auto) Baso # (Auto) Abs Immat Gran (auto) Absolute Neuts (auto) Absolute Nucleated RBC Nucleated RBC % Sodium Potassium Chloride Carbon Dioxide Anion Gap BUN Creatinine Estim Creat Clear Calc Estimated GFR Glucose POC Capillary Glucose 126 H 106 H Calcium Magnesium Total Bilirubin AST ALT Alkaline Phosphatase Total Protein Albumin Vancomycin Trough 5.7 L 07/10/24 07/11/24 07/11/24 20:18 05:39 05:41 WBC 10.5 H RBC 3.41 L Hgb 10.5 L Hct 31.6 L MCV 92.7 MCH 30.8 MCHC 33.2 RDW 14.4 Plt Count 308 MPV 9.7 Immature Gran % (Auto) 0.8 H Neut % (Auto) 64.7 Lymph % (Auto) 20.2 [place] % (Auto) 11.0 H Eos % (Auto) 2.9 Baso % (Auto) 0.4 Lymph # (Auto) 2.12 [place] # (Auto) 1.2 H Eos # (Auto) 0.3 Baso # (Auto) 0.0 Abs Immat Gran (auto) 0.08 H Absolute Neuts (auto) 6.8 H Absolute Nucleated RBC 0.000 Nucleated RBC % 0.0 Sodium 139 Potassium 3.9 Chloride 110 H Carbon Dioxide 26 Anion Gap 3 L BUN 9 Creatinine 0.54 L 0.47 L Estim Creat Clear Calc 87 99 Estimated GFR > 60 > 60 Glucose 101 POC Capillary Glucose 183 H Calcium 8.3 L Magnesium 2.2 Total Bilirubin 0.7 AST 29 ALT 14 Alkaline Phosphatase 107 Total Protein 6.0 L Albumin 2.7 L Vancomycin Trough 07/11/24 07/11/24 07:23 11:55 WBC RBC Hgb Hct MCV MCH MCHC RDW Plt Count MPV Immature Gran % (Auto) Neut % (Auto) Lymph % (Auto) [place] % (Auto) Eos % (Auto) Baso % (Auto) Lymph # (Auto) [place] # (Auto) Eos # (Auto) Baso # (Auto) Abs Immat Gran (auto) Absolute Neuts (auto) Absolute Nucleated RBC Nucleated RBC % Sodium Potassium Chloride Carbon Dioxide Anion Gap BUN Creatinine Estim Creat Clear Calc Estimated GFR Glucose POC Capillary Glucose 102 109 H Calcium Magnesium Total Bilirubin AST ALT Alkaline Phosphatase Total Protein Albumin Vancomycin Trough Pulse Oximetry SpO2 results: 93-100% on room air Attestation: I personally reviewed and interpreted this pulse oximetry as follows: Interpretation: No need for supplemental oxygenation at this time Quality VTE Prophylaxis VTE prophylaxis: pharmacologic ordered Dictation performed by [employer] direct speech recognition software, therefore screener perfumer variants and typographical errors may occur. Hospitalist MIPS Advance Care Plan I have confirmed that the patient's Advanced Care Plan is present, code status is documented, or surrogate decision maker is listed in patient medical record.: Yes Medication Reconciliation I have utilized all available resources to obtain, update and review the patients current medications (includes all prescriptions, OTC, herbals, cannabis, and nutritional supplements).: Yes
[2024-07-11] MEDS: ACETAMINOPHEN 500 MG TABLET 1000 MG PO ×2 (13:28→20:50)
--- NOTE | 2024-07-11 16:12 | PM.PNORT ---
Progress Note: A&P Assessment and Plan (1) Diabetic foot infection: Code(s): E11.628 - Type 2 diabetes mellitus with other skin complications; L08.9 - Local infection of the skin and subcutaneous tissue, unspecified Status: Acute Assessment and Plan: Right foot debridement yesterday. Cultures taken at that time show gram-positive as well as gram-negative bacteria. Awaiting culture and sensitivity. Further debridement of skin slough from the right 4th toe today. Overall the erythema has improved however there is a lot of swelling in the toes. Dislocation of the 2nd toe MTP joint noted on x-rays and discussed with the patient. Decreased blood flow the toes on MONIKA/TBI testing and reviewed with the patient. Treatment options including operative and non operative treatment reviewed once again. Questions answered. She is trying to salvage and save the toes. We will continue with empiric IV antibiotics. Continue daily dressing changes. Elevation of the foot to assist with edema. If the infection appears to be worsening we discussed 4th toe amputation. If improving will continue to follow and await culture results. (2) Type 2 diabetes mellitus: Qualifiers: Diabetes mellitus long term acute care registered nurse insulin use: without mcc use Diabetes mellitus complication status: with neurologic complications Diabetes mellitus complication detail: with polyneuropathy Qualified Code(s): E11.42 - Type 2 diabetes mellitus with diabetic polyneuropathy Code(s): E11.9 - Type 2 diabetes mellitus without complications Status: Acute Subjective Subjective Date/Time Seen: 07/11/24 16:12 Principal diagnosis: right diabetic foot ulcer, cellulitis Interval history: patient comfortable in bed. No new complaints. Tolerating diet. Review of Systems Review of Systems: All systems reviewed & are unremarkable except as noted in HPI and below Constitutional: Constitutional: Denies fever(s) Eyes: Eyes: Denies blurry vision ENT: Reports Normal hearing present Cardiovascular: Cardiovascular: Denies chest pain and Denies dyspnea Respiratory: Respiratory: Denies dyspnea and Denies wheezing Gastrointestinal: Gastrointestinal: Denies abdominal pain Genitourinary: Genitourinary: Denies urinary urgency Musculoskeletal: Musculoskeletal: Reports as per HPI and Denies numbness Integumentary/Breasts: Skin/Breast: Denies changing lesions and Denies sores Neurologic: Reports Normal hearing present, Denies behavioral changes, Denies confusion and Denies convulsions Psychiatric: Psychiatric: Denies behavioral changes, Denies confusion and Denies hallucinations Endocrine: Endocrine: Denies heat intolerance Hematologic/Lymphatic: Hematologic/Lymphatic: Denies easy bleeding Allergic/Immunologic: Allergic/Immunologic: Denies wheezing Exam Const: General: cooperative and average body habitus Nutritional Appearance: average body habitus Orientation/consciousness: patient oriented x3 Limitations: no limitations HENMT: Head: normal to inspection Ears: hearing grossly normal bilaterally Face/Nose/Sinus: Normal external nose present and normal facial exam Face and sinus: normal facial exam Mouth: Yes moist mucous membranes Teeth and gingiva: dentition normal Neck: Neck: normal visual inspection Chest: Chest palpation & inspection: normal inspection of the chest Resp: Effort & Inspection: normal respiratory effort and able to speak in complete sentences Cardio: Jugular venous distension: no JVD Neuro: General: patient oriented x3 Cranial nerves: Yes Equal, round and reactive pupils present Extrem: Right lower extremity: foot Details: tenderness (mild, diffuse ), abnormal ROM of toe (3rd ray amp, severe hallux valgus), warmth (4th toe, forefoot swelling) Location: of the plantar foot, crepitus, vascular exam Details: dorsalis pedis pulse present (faintly palpable) and motor-sensory exam Details: light-touch abnormal Other: Redness/warmth and swelling of the 4th toe extending into the plantar forefoot and dorsal midfoot. 1 cm Wound on the plantar aspect of the 4th MTP which extends through the webspace of the 4th/5th ray. Malodorous, purulent drainage. Necrosis of soft tissue noted. Psych: Mental Status: mental status grossly normal Objective Data Vital Signs Vital Signs: Vital Signs - 24 hr 07/10/24 20:00 07/10/24 20:00 07/10/24 20:00 Temperature 99.7 F H Pulse Rate 79 79 Respiratory Rate 16 Blood Pressure 120/45 L Pulse Oximetry 93 Oxygen Delivery Room Air 07/11/24 00:00 07/11/24 04:00 07/11/24 05:45 Temperature 97.0 F L Pulse Rate 58 L 55 L 61 Respiratory Rate 16 Blood Pressure 103/50 L Pulse Oximetry 97 Oxygen Delivery 07/11/24 13:41 Temperature 97.1 F L Pulse Rate 74 Respiratory Rate 16 Blood Pressure 135/52 L Pulse Oximetry 100 Oxygen Delivery Intake/Output Intake/Output: Intake & Output 07/08/24 07/09/24 07/10/24 07/11/24 23:59 23:59 23:59 23:59 Intake Total 1650 3170 3917 1150 Balance 1650 3170 3917 1150 Meds/Results Medications: Active Medications Generic Name Dose Route Start Last Admin Trade Name Freq PRN Reason Stop Dose Admin Acetaminophen 1,000 mg 07/08/24 22:18 07/11/24 13:28 Acetaminophen 500 Mg Tablet PO 1,000 mg Q6H PRN Administration Mild Pain (1-3) or Fever Alprazolam 1 mg 07/09/24 03:06 07/10/24 21:40 Alprazolam (*Crx) 0.5 Mg Tablet PO 1 mg BID PRN Administration Anxiety Atenolol 50 mg 07/10/24 21:00 07/10/24 20:12 Atenolol 50 Mg Tablet PO 50 mg QHS TIFF Administration Atorvastatin Calcium 40 mg 07/09/24 21:00 07/10/24 20:12 Atorvastatin 40 Mg Tablet PO 40 mg HS TIFF Administration Dextrose 12.5 gm 07/08/24 22:18 Dextrose 50% 25 Gm/50 Ml Syringe IV PUSH PRN PRN Hypoglycemia Protocol Duloxetine HCl 60 mg 07/09/24 09:00 07/11/24 08:34 Duloxetine Hcl 60 Mg Capsule.Dr PO 60 mg DAILY TIFF Administration Enoxaparin Sodium 40 mg 07/09/24 09:00 07/11/24 08:34 Enoxaparin 40 Mg/0.4 Ml Syringe SUB-Q 40 mg DAILY TIFF Administration Glucagon 1 mg 07/08/24 22:18 Glucagon For Inj 1 Mg Vial IM PRN PRN Hypoglycemia Protocol Glucose 15 gm 07/08/24 22:18 Glucose Oral Gel 15 Gm Of Glucse In 37.5 Gm Tube PO PRN PRN Hypoglycemia Protocol Dextrose 1,000 mls @ 100 mls/hr 07/08/24 22:18 Dextrose 5% 1,000 Ml IVPB PRN PRN Hypoglycemia Protocol Cefepime HCl 2 gm in 50 mls @ 100 mls/hr 07/10/24 21:00 07/11/24 09:20 Maxipime 2 Gm/Ns 50 Ml IVPB Infused Q12HR TIFF Infusion Vancomycin HCl 1,250 mg in 250 mls @ 166.667 mls/hr 07/11/24 09:00 07/11/24 11:21 Vancomycin 1,250 Mg/Ns 250 Ml IVPB Infused Q12H TIFF Infusion Insulin Aspart 2 - 5 units 07/10/24 08:00 07/11/24 13:18 Insulin Aspart (*Bkc) 100 Units/Ml SUB-Q Not Given TIDWM [facility] Protocol Metronidazole 500 mg 07/10/24 15:00 07/11/24 13:30 Metronidazole 500 Mg Tablet PO 500 mg Q8HR TIFF Administration Ondansetron HCl 4 mg 07/08/24 22:18 Ondansetron Inj 4 Mg/2 Ml Vial IV PUSH Q4H PRN Nausea Potassium Chloride 20 meq 07/10/24 09:00 07/11/24 08:34 Potassium Chloride 20 Meq Er Tablet PO 20 meq DAILY TIFF Administration Trazodone HCl 100 mg 07/09/24 21:00 07/10/24 21:40 Trazodone Hcl 50 Mg Tablet PO 100 mg HS TIFF Administration Radiology Results: ITS Impressions Foot CT 07/08/24 19:41 IMPRESSION: Tract of fluid attenuation within the area of clinical concern, as detailed above. The entirety of this collection is likely visible with ultrasound, if needed for drainage. Soft Tissue Ultrasound 07/09/24 20:25 IMPRESSION: 1. Soft tissue swelling with heterogeneous echogenicity involving the plantar aspect of the forefoot centered at the base of the fourth digit correlating with the CT abnormality, consistent with inflammation/infection and necrosis. No significant drainable fluid collection. Note that non-drainable necrosis and abscess can have the same appearance by CT. Foot X-Ray 07/10/24 19:35 IMPRESSION: As above. Ankle Brachial Index 07/10/24 20:09 IMPRESSION: Markedly diminished toe brachial index bilaterally. Normal MONIKA bilaterally Labs Labs: Laboratory Results - last 24 hr 07/10/24 07/10/24 07/10/24 17:06 19:54 20:18 WBC RBC Hgb Hct MCV MCH MCHC RDW Plt Count MPV Immature Gran % (Auto) Neut % (Auto) Lymph % (Auto) [place] % (Auto) Eos % (Auto) Baso % (Auto) Lymph # (Auto) [place] # (Auto) Eos # (Auto) Baso # (Auto) Abs Immat Gran (auto) Absolute Neuts (auto) Absolute Nucleated RBC Nucleated RBC % Sodium Potassium Chloride Carbon Dioxide Anion Gap BUN Creatinine Estim Creat Clear Calc Estimated GFR Glucose POC Capillary Glucose 106 H 183 H Calcium Magnesium Total Bilirubin AST ALT Alkaline Phosphatase Total Protein Albumin Vancomycin Trough 5.7 L 07/11/24 07/11/24 07/11/24 05:39 05:41 07:23 WBC 10.5 H RBC 3.41 L Hgb 10.5 L Hct 31.6 L MCV 92.7 MCH 30.8 MCHC 33.2 RDW 14.4 Plt Count 308 MPV 9.7 Immature Gran % (Auto) 0.8 H Neut % (Auto) 64.7 Lymph % (Auto) 20.2 [place] % (Auto) 11.0 H Eos % (Auto) 2.9 Baso % (Auto) 0.4 Lymph # (Auto) 2.12 [place] # (Auto) 1.2 H Eos # (Auto) 0.3 Baso # (Auto) 0.0 Abs Immat Gran (auto) 0.08 H Absolute Neuts (auto) 6.8 H Absolute Nucleated RBC 0.000 Nucleated RBC % 0.0 Sodium 139 Potassium 3.9 Chloride 110 H Carbon Dioxide 26 Anion Gap 3 L BUN 9 Creatinine 0.54 L 0.47 L Estim Creat Clear Calc 87 99 Estimated GFR > 60 > 60 Glucose 101 POC Capillary Glucose 102 Calcium 8.3 L Magnesium 2.2 Total Bilirubin 0.7 AST 29 ALT 14 Alkaline Phosphatase 107 Total Protein 6.0 L Albumin 2.7 L Vancomycin Trough 07/11/24 11:55 WBC RBC Hgb Hct MCV MCH MCHC RDW Plt Count MPV Immature Gran % (Auto) Neut % (Auto) Lymph % (Auto) [place] % (Auto) Eos % (Auto) Baso % (Auto) Lymph # (Auto) [place] # (Auto) Eos # (Auto) Baso # (Auto) Abs Immat Gran (auto) Absolute Neuts (auto) Absolute Nucleated RBC Nucleated RBC % Sodium Potassium Chloride Carbon Dioxide Anion Gap BUN Creatinine Estim Creat Clear Calc Estimated GFR Glucose POC Capillary Glucose 109 H Calcium Magnesium Total Bilirubin AST ALT Alkaline Phosphatase Total Protein Albumin Vancomycin Trough Imaging My impression: Right foot radiographs: X-rays of the right foot show severe hallux valgus deformity. Dislocation of 2nd metatarsophalangeal joint with dorsal displacement. 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 4Th toe with good alignment. 5th toe with good alignment. No lytic lesions or bone erosion. Impression: Hallux valgus with 2nd MTP dislocation. ABIs reviewed. Normal Right lower extremity MONIKA, left lower extremity MONIKA unable to be obtained. Severely diminished arterial blood flow to the toes bilaterally.
[2024-07-11 17:00] LABS: Glucose Point of Care 135 mg/dl (65-105)
[2024-07-11] MEDS: VANCOMYCIN 1,250 MG/NS 250 ML 1,250 MG/250 ML BAG 167 MG IVPB (20:38)
[2024-07-11] MEDS: atenoloL 50 MG TABLET PO (20:41)
[2024-07-11] MEDS: traZODone HCL 50 MG TABLET 100 MG PO (20:43)
[2024-07-11] MEDS: ATORVASTATIN 40 MG TABLET PO (20:43)
[2024-07-11] MEDS: ALPRAZolam (*CRX) 0.5 MG TABLET 1 MG PO (20:50)
[2024-07-11 21:58] LABS: Glucose Point of Care 107 mg/dl (65-105)
[2024-07-12 06:00] VITALS: BP 129/50; PULSE 71; RESP 18; TEMP 36.9; O2SAT 96
[2024-07-12] MEDS: metroNIDAZOLE 500 MG TABLET PO ×3 (06:33→21:04)
[2024-07-12 08:06] LABS: Basophils Absolute Auto 0.1 K/mm3 (0.0-0.1); Basophils Percent Auto 0.6 % (0.2-1.2); Eosinophils Absolute Auto 0.3 K/mm3 (0-0.3); Eosinophils Percent Auto 2.5 % (0-4.4); Hematocrit 31.9 % (37.0-47.0); Hemoglobin 10.6 g/dL (12.0-15.0); Immature Granulocyte Absolute 0.13 K/mm3 (0.00-0.031); Immature Granulocyte Percent A 1.2 % (0-0.5); Lymphocytes Absolute Auto 1.74 K/mm3 (0.9-3.2); Lymphocytes Percent Auto 15.7 % (18.3-44.2); Mean Corpuscular HGB Conc 33.2 g/dl (32-36); Mean Corpuscular Hemoglobin 30.4 pg (26-34); Mean Corpuscular Volume 91.4 fl (80-100); Mean Platelet Volume 8.9 fl (7.4-10.4); Monocytes Absolute Auto 1.2 K/mm3 (0.1-0.6); Monocytes Percent Auto 11.2 % (2.6-8.5); Neutrophils Absolute Auto 7.6 K/mm3 (1.3-6.7); Neutrophils Percent Auto 68.8 % (45.5-73.1); Platelet Count Result 344 k/mm3 (150-375); Red Blood Count 3.49 M/mm3 (4.2-5.4); Red Cell Distribution Width 14.6 % (11.5-14.5); White Blood Count 11.1 K/mm3 (4.5-10.0)
[2024-07-12] MEDS: ENOXAPARIN 40 MG/0.4 ML SYRINGE SUB-Q (08:06)
[2024-07-12] MEDS: CEFEPIME 2 GM/NS 50 ML 2 GM/50 ML BAG IVPB ×2 (08:06→21:07)
[2024-07-12] MEDS: POTASSIUM CHLORIDE 20 MEQ ER TABLET PO (08:06)
[2024-07-12] MEDS: DULoxetine HCL 60 MG CAPSULE.DR PO (08:06)
[2024-07-12 08:21] LABS: Alanine Aminotransferase 18 U/L (6-35); Albumin Level 2.9 g/dL (3.5-5.1); Alkaline Phosphatase 110 U/L (38-126); Anion Gap 2 mmol/L (4-12); Aspartate Amino Transferase 38 U/L (14-36); Bilirubin,Total 0.7 mg/dL (0.2-1.3); Blood Urea Nitrogen 7 mg/dL (7-17); Calcium 8.3 mg/dL (8.4-10.2); Carbon Dioxide 28 mmol/L (22-30); Chloride 109 mmol/L (98-107); Estimated CRCL calculation 90 ml/min; Estimated Glomerular Filt Rate > 60; Glucose 109 mg/dL (65-110); Magnesium 2.2 mg/dL (1.6-2.3); Potassium 4.4 mmol/L (3.4-5.0); Sodium 139 mmol/L (137-145)
[2024-07-12 08:33] LABS: Glucose Point of Care 105 mg/dl (65-105)
[2024-07-12 09:17] LABS: Vancomycin Trough 12.2 ug/mL (10.0-20.0)
[2024-07-12] MEDS: VANCOMYCIN 1,750 MG/NS 500 ML 1,750 MG/500 ML BAG 250 MG IVPB ×2 (09:43→21:13)
[2024-07-12 11:54] LABS: Glucose Point of Care 157 mg/dl (65-105)
--- NOTE | 2024-07-12 12:36 | P.PNIM_ITS ---
Progress Note: A&P Assessment and Plan (1) Cellulitis and abscess of toe of right foot: Code(s): L03.031 - Cellulitis of right toe; L02.611 - Cutaneous abscess of right foot Status: Acute Assessment and Plan: * Consulted Dr. Rivka Saavedra * Imaging shows consistent with inflammation/infection and necrosis and possible osteomyelitis * Suspect degree of gangrene * Continue prn pain meds * Continue abx of Vanc, Cefepime and Flagyl. * Pain management * blood cultures pending * Wound Consult. 07/11: Patient underwent OR debridement of wound with necrotic tissue removed Pending wound cultures patient continues on cefepime, vancomycin and flagyl 07/12 awaiting culture report (2) Ulcer of foot due to type 2 diabetes mellitus: Code(s): E11.621 - Type 2 diabetes mellitus with foot ulcer; L97.509 - Non-pressure chronic ulcer of other part of unspecified foot with unspecified severity Status: Acute Assessment and Plan: * follow surgery recommendations (3) Hypokalemia: Code(s): E87.6 - Hypokalemia Status: Acute Assessment and Plan: * Low at 2.8 on arrival. * Received initial 40 mEq po and IV in ER. * Repeat potassium 3.0. Pt given another 40 mEq po * Will trend with daily labs. 07/10/2024 * Potassium 3.2 * replenish with 40Meq 07/11: Potassium 3.9, magnesium 2.2 07/12: potassium is 4 (4) CHRISTIANA (acute kidney injury): Code(s): N17.9 - Acute kidney failure, unspecified Status: Acute Assessment and Plan: * Continue to monitor. * Cr/BUN today .. * Receiving IVF. RESOLVED 07/11: No current IV fluids, patient tolerating diet and renal function back to baseline 07/12 can dc fluids (5) Type 2 diabetes mellitus: Qualifiers: Diabetes mellitus fpc insulin use: without intermodal dispatcher use Diabetes mellitus complication status: with neurologic complications Diabetes mellitus complication detail: with polyneuropathy Qualified Code(s): E11.42 - Type 2 diabetes mellitus with diabetic polyneuropathy Code(s): E11.9 - Type 2 diabetes mellitus without complications Status: Acute Assessment and Plan: * Check A1C * Continue SSI * Hypoglycemic protocol * Glucose checks AC and HS and PRN * Diabetic diet Subjective Date/time seen: 07/12/24 12:36 Interval history: Pt admitted with R toe cellulitis, dm + OM as per orthopedic note -pt had right foot debridement yesterday. Cultures taken at that time show gram-positive as well as gram-negative bacteria. Awaiting culture and sensitivity. Further debridement of skin slough from the right 4th toe today. Overall the erythema has improved however there is a lot of swelling in the toes. Dislocation of the 2nd toe MTP joint noted on x-rays and discussed with the patient. Decreased blood flow the toes on MONIKA/TBI testing and reviewed with the patient. Treatment options including operative and non operative treatment reviewed once again. Questions answered. She is trying to salvage and save the toes. We will continue with empiric IV antibiotics. Review of Systems Review of Systems: ongoing foot pain and drainage Exam Narrative: GENERAL: Well-appearing, well-nourished, and in no acute distress. HEAD: Normocephalic, atraumatic. ENT:? Mucous membranes moist. CHEST: Clear to auscultation.? No respiratory distress. HEART: Regular rate and rhythm. ? Normal peripheral pulses. ABDOMEN: Soft, nontender, nondistended. EXTREMITIES: Normal range of motion. Right foot with bandage and post op shoe, longoria drainage noted on bandage. SKIN: Warm dry normal color NEURO: Alert and oriented x3. PSYCH: Normal mood and affect Objective Data Vital Signs Vital Signs: Vital Signs - 24 hr 07/11/24 13:41 07/11/24 20:00 07/11/24 20:24 Temperature 36.2 C L 37.2 C Pulse Rate 74 74 Respiratory Rate 16 16 Blood Pressure 135/52 L 139/73 Pulse Oximetry 100 92 Oxygen Delivery Room Air 07/11/24 20:41 07/12/24 06:00 07/12/24 08:06 Temperature 36.9 C Pulse Rate 85 71 Respiratory Rate 18 Blood Pressure 129/50 L Pulse Oximetry 96 Oxygen Delivery Room Air Intake/Output Intake/Output: Intake & Output 07/09/24 07/10/24 07/11/24 07/12/24 23:59 23:59 23:59 23:59 Intake Total 3050 3917 1690 620 Balance 3170 3917 1690 620 Meds/Results Medications: Active Medications Generic Name Dose Route Start Last Admin Trade Name Freq PRN Reason Stop Dose Admin Acetaminophen 1,000 mg 07/08/24 22:18 07/11/24 20:50 Acetaminophen 500 Mg Tablet PO 1,000 mg Q6H PRN Administration Mild Pain (1-3) or Fever Alprazolam 1 mg 07/09/24 03:06 07/11/24 20:50 Alprazolam (*Crx) 0.5 Mg Tablet PO 1 mg BID PRN Administration Anxiety Atenolol 50 mg 07/10/24 21:00 07/11/24 20:41 Atenolol 50 Mg Tablet PO 50 mg QHS TIFF Administration Atorvastatin Calcium 40 mg 07/09/24 21:00 07/11/24 20:43 Atorvastatin 40 Mg Tablet PO 40 mg HS TIFF Administration Dextrose 12.5 gm 07/08/24 22:18 Dextrose 50% 25 Gm/50 Ml Syringe IV PUSH PRN PRN Hypoglycemia Protocol Duloxetine HCl 60 mg 07/09/24 09:00 07/12/24 08:06 Duloxetine Hcl 60 Mg Capsule.Dr PO 60 mg DAILY TIFF Administration Enoxaparin Sodium 40 mg 07/09/24 09:00 07/12/24 08:06 Enoxaparin 40 Mg/0.4 Ml Syringe SUB-Q 40 mg DAILY TIFF Administration Glucagon 1 mg 07/08/24 22:18 Glucagon For Inj 1 Mg Vial IM PRN PRN Hypoglycemia Protocol Glucose 15 gm 07/08/24 22:18 Glucose Oral Gel 15 Gm Of Glucse In 37.5 Gm Tube PO PRN PRN Hypoglycemia Protocol Dextrose 1,000 mls @ 100 mls/hr 07/08/24 22:18 Dextrose 5% 1,000 Ml IVPB PRN PRN Hypoglycemia Protocol Cefepime HCl 2 gm in 50 mls @ 100 mls/hr 07/10/24 21:00 07/12/24 08:36 Maxipime 2 Gm/Ns 50 Ml IVPB Infused Q12HR TIFF Infusion Vancomycin HCl 1,750 mg in 500 mls @ 250 mls/hr 07/12/24 10:00 07/12/24 09:43 Vancomycin 1,750 Mg/Ns 500 Ml IVPB 250 mls/hr Q12H TIFF Administration Insulin Aspart 2 - 5 units 07/10/24 08:00 07/12/24 12:14 Insulin Aspart (*Bkc) 100 Units/Ml SUB-Q Not Given TIDWM TIFF Protocol Metronidazole 500 mg 07/10/24 15:00 07/12/24 06:33 Metronidazole 500 Mg Tablet PO 500 mg Q8HR TIFF Administration Ondansetron HCl 4 mg 07/08/24 22:18 Ondansetron Inj 4 Mg/2 Ml Vial IV PUSH Q4H PRN Nausea Potassium Chloride 20 meq 07/10/24 09:00 07/12/24 08:06 Potassium Chloride 20 Meq Er Tablet PO 20 meq DAILY TIFF Administration Trazodone HCl 100 mg 07/09/24 21:00 07/11/24 20:43 Trazodone Hcl 50 Mg Tablet PO 100 mg HS TIFF Administration Radiology Results: ITS Impressions Foot CT 07/08/24 19:41 IMPRESSION: Tract of fluid attenuation within the area of clinical concern, as detailed above. The entirety of this collection is likely visible with ultrasound, if needed for drainage. Soft Tissue Ultrasound 07/09/24 20:25 IMPRESSION: 1. Soft tissue swelling with heterogeneous echogenicity involving the plantar aspect of the forefoot centered at the base of the fourth digit correlating with the CT abnormality, consistent with inflammation/infection and necrosis. No significant drainable fluid collection. Note that non-drainable necrosis and abscess can have the same appearance by CT. Foot X-Ray 07/10/24 19:35 IMPRESSION: As above. Ankle Brachial Index 07/10/24 20:09 IMPRESSION: Markedly diminished toe brachial index bilaterally. Normal MONIKA bilaterally Labs Labs: Laboratory Results - last 24 hr 07/11/24 07/11/24 07/12/24 16:56 20:28 07:58 WBC RBC Hgb Hct MCV MCH MCHC RDW Plt Count MPV Immature Gran % (Auto) Neut % (Auto) Lymph % (Auto) [place] % (Auto) Eos % (Auto) Baso % (Auto) Lymph # (Auto) [place] # (Auto) Eos # (Auto) Baso # (Auto) Abs Immat Gran (auto) Absolute Neuts (auto) Absolute Nucleated RBC Nucleated RBC % Sodium Potassium Chloride Carbon Dioxide Anion Gap BUN Creatinine Estim Creat Clear Calc Estimated GFR Glucose POC Capillary Glucose 135 H 107 H Calcium Magnesium Total Bilirubin AST ALT Alkaline Phosphatase Total Protein Albumin Vancomycin Trough 12.2 07/12/24 07/12/24 07/12/24 07:59 08:31 11:50 WBC 11.1 H RBC 3.49 L Hgb 10.6 L Hct 31.9 L MCV 91.4 MCH 30.4 MCHC 33.2 RDW 14.6 H Plt Count 344 MPV 8.9 Immature Gran % (Auto) 1.2 H Neut % (Auto) 68.8 Lymph % (Auto) 15.7 L [place] % (Auto) 11.2 H Eos % (Auto) 2.5 Baso % (Auto) 0.6 Lymph # (Auto) 1.74 [place] # (Auto) 1.2 H Eos # (Auto) 0.3 Baso # (Auto) 0.1 Abs Immat Gran (auto) 0.13 H Absolute Neuts (auto) 7.6 H Absolute Nucleated RBC 0.000 Nucleated RBC % 0.0 Sodium 139 Potassium 4.4 Chloride 109 H Carbon Dioxide 28 Anion Gap 2 L BUN 7 Creatinine 0.52 L Estim Creat Clear Calc 90 Estimated GFR > 60 Glucose 109 POC Capillary Glucose 105 157 H Calcium 8.3 L Magnesium 2.2 Total Bilirubin 0.7 AST 38 H ALT 18 Alkaline Phosphatase 110 Total Protein 6.0 L Albumin 2.9 L Vancomycin Trough
--- NOTE | 2024-07-12 13:46 | PM.PNORT ---
Progress Note: A&P Assessment and Plan (1) Diabetic foot infection: Code(s): E11.628 - Type 2 diabetes mellitus with other skin complications; L08.9 - Local infection of the skin and subcutaneous tissue, unspecified <ELAYNE Bailey - Last Filed: 07/12/24 15:38> Status: Acute <ELAYNE Bailey - Last Filed: 07/12/24 15:38> Assessment and Plan: Right foot debridement 07/10. Cultures taken at that time show staph, preliminary. Awaiting sensitivity. Overall the erythema has improved however there is a lot of swelling in the toes and continued erythema to the 4th toe. Dislocation of the 2nd toe MTP joint noted on x-rays and discussed with the patient. Decreased blood flow the toes on MONIKA/TBI testing and reviewed with the patient. Treatment options including operative and non operative treatment reviewed once again. Questions answered. Very little improvement in the 4th ray despite IV antibiotics. Patient agreeable to surgical intervention at this time. Recommended 4th right toe debridement with possible amputation. NPO at midnight Obtained consent Continue IV antibiotics in the interim new line I would await final culture results to guide postoperative antibiotic therapy. Pain control Elevate Postop shoe without a bed <ELAYNE Bailey - Last Filed: 07/12/24 15:38> Right foot debridement 07/10. Cultures taken at that time show staph, preliminary. Awaiting sensitivity. Overall the erythema has improved however there is a lot of swelling in the toes and continued erythema to the 4th toe. Dislocation of the 2nd toe MTP joint noted on x-rays and discussed with the patient. Decreased blood flow the toes on MONIKA/TBI testing and reviewed with the patient. Treatment options including operative and non operative treatment reviewed once again. Questions answered. Very little improvement in the 4th ray despite IV antibiotics. Patient agreeable to surgical intervention at this time. Recommended 4th right toe debridement with possible amputation. NPO at midnight Obtained consent Continue IV antibiotics in the interim Await final culture results to guide postoperative antibiotic therapy. Pain control Elevate Postop shoe when out of bed <Lorenzo Tineo MD - Last Filed: 07/12/24 16:39> (2) Type 2 diabetes mellitus: Qualifiers: Diabetes mellitus complication detail: with polyneuropathy Diabetes mellitus complication status: with neurologic complications Diabetes mellitus roping machine tender insulin use: without roping machine tender use Qualified Code(s): E11.42 - Type 2 diabetes mellitus with diabetic polyneuropathy <ELAYNE Bailey - Last Filed: 07/12/24 15:38> Code(s): E11.9 - Type 2 diabetes mellitus without complications <ELAYNE Bailey - Last Filed: 07/12/24 15:38> Status: Acute <ELAYNE Bailey - Last Filed: 07/12/24 15:38> Assessment and Plan: Worsening necrosis and infection right 4th toe. Unrelieved with local debridement and IV antibiotics. Patient with severe neuropathy and peripheral arterial disease. Discussed nonoperative and operative treatment options with the patient. Risks and benefits of each as well as alternatives were reviewed. All of the patient's questions were answered. The risks of surgery reviewed including but not limited to: Neurovascular damage, wound complication, infection, blood clot, pulmonary embolus, stroke, myocardial infarction, and anesthetic risks up to and including . Continued pain and possible dysfunction were explained. Specific risks of the procedure including later recurrence of deformity. No guarantees were offered. If complications occur, the patient understands the need for further treatment, possible further surgery. Patient verbalizes understanding and wishes to proceed. PLAN: Right foot debridement of 4th toe diabetic ulcer, possible 4th toe amputation. <Lorenzo Tineo MD - Last Filed: 07/12/24 16:39> Time Spent With Patient Time: Reviewed history, exam, radiographs and current labs with attending MD and covering surgeon, Dr. Tineo, who agrees with current plan as indicated above. No further recommendations from Dr. Tineo at this time. <ELAYNE Bailey - Last Filed: 07/12/24 15:38> Subjective Subjective Date/Time Seen: 07/12/24 13:46 <ELAYNE Bailey - Last Filed: 07/12/24 15:38> Principal diagnosis: right diabetic foot ulcer, cellulitis <ELAYNE Bailey - Last Filed: 07/12/24 15:38> Interval history: patient comfortable in bed. No new complaints. Tolerating diet. <ELAYNE Bailey - Last Filed: 07/12/24 15:38> Review of Systems Review of Systems: All systems reviewed & are unremarkable except as noted in HPI and below <DAI BaileyP - Last Filed: 07/12/24 15:38> Constitutional: Constitutional: Denies fever(s) <Talita Ferro [facility] - Last Filed: 07/12/24 15:38> Eyes: Eyes: Denies blurry vision <Talita Ferro [facility] - Last Filed: 07/12/24 15:38> ENT: Reports Normal hearing present <Talita Ferro [facility] - Last Filed: 07/12/24 15:38> Cardiovascular: Cardiovascular: Denies chest pain and Denies dyspnea <Talita Ferro [facility] - Last Filed: 07/12/24 15:38> Respiratory: Respiratory: Denies dyspnea and Denies wheezing <Talita Ferro [facility] - Last Filed: 07/12/24 15:38> Gastrointestinal: Gastrointestinal: Denies abdominal pain <Talita Ferro [facility] - Last Filed: 07/12/24 15:38> Genitourinary: Genitourinary: Denies urinary urgency <DAI BaileyP - Last Filed: 07/12/24 15:38> Musculoskeletal: Musculoskeletal: Reports as per HPI and Denies numbness <Talita Ferro [facility] - Last Filed: 07/12/24 15:38> Integumentary/Breasts: Skin/Breast: Denies changing lesions and Denies sores <Talita Ferro [facility] - Last Filed: 07/12/24 15:38> Neurologic: Reports Normal hearing present, Denies behavioral changes, Denies confusion and Denies convulsions <Talita Ferro [facility] - Last Filed: 07/12/24 15:38> Psychiatric: Psychiatric: Denies behavioral changes, Denies confusion and Denies hallucinations <DAI BaileyP - Last Filed: 07/12/24 15:38> Endocrine: Endocrine: Denies heat intolerance <Talita Ferro [facility] - Last Filed: 07/12/24 15:38> Hematologic/Lymphatic: Hematologic/Lymphatic: Denies easy bleeding <DAI BaileyP - Last Filed: 07/12/24 15:38> Allergic/Immunologic: Allergic/Immunologic: Denies wheezing <DAI BaileyP - Last Filed: 07/12/24 15:38> Exam Const: General: cooperative and average body habitus <DAI BaileyP - Last Filed: 07/12/24 15:38> Nutritional Appearance: average body habitus <DAI BaileyP - Last Filed: 07/12/24 15:38> Orientation/consciousness: patient oriented x3 <DAI BaileyP - Last Filed: 07/12/24 15:38> Limitations: no limitations <DAI BaileyP - Last Filed: 07/12/24 15:38> HENMT: Head: normal to inspection <DAI BaileyP - Last Filed: 07/12/24 15:38> Ears: hearing grossly normal bilaterally <Talita Ferro [facility] - Last Filed: 07/12/24 15:38> Face/Nose/Sinus: Normal external nose present and normal facial exam <DAI BaileyP - Last Filed: 07/12/24 15:38> Face and sinus: normal facial exam <DAI BaileyP - Last Filed: 07/12/24 15:38> Mouth: Yes moist mucous membranes <DAI BaileyP - Last Filed: 07/12/24 15:38> Teeth and gingiva: dentition normal <DAI BaileyP - Last Filed: 07/12/24 15:38> Neck: Neck: normal visual inspection <DAI BaileyP - Last Filed: 07/12/24 15:38> Chest: Chest palpation & inspection: normal inspection of the chest <DAI BaileyP - Last Filed: 07/12/24 15:38> Resp: Effort & Inspection: normal respiratory effort and able to speak in complete sentences <ELAYNE Bailey - Last Filed: 07/12/24 15:38> Cardio: Jugular venous distension: no JVD <DAI BaileyP - Last Filed: 07/12/24 15:38> Neuro: General: patient oriented x3 <DAI BaileyP - Last Filed: 07/12/24 15:38> Cranial nerves: Yes Equal, round and reactive pupils present <DAI BaileyP - Last Filed: 07/12/24 15:38> Extrem: Right lower extremity: foot Details: tenderness (mild, diffuse ), abnormal ROM of toe (3rd ray amp, severe hallux valgus), warmth (4th toe, forefoot swelling) Location: of the plantar foot, crepitus, vascular exam Details: dorsalis pedis pulse present (faintly palpable) and motor-sensory exam Details: light-touch abnormal <DAI BaileyP - Last Filed: 07/12/24 15:38> Other: Redness/warmth and swelling of the 4th toe extending into the plantar forefoot and dorsal midfoot. 1 cm Wound on the plantar aspect of the 4th MTP which extends through the webspace of the 4th/5th ray. Malodorous, purulent drainage. Necrosis of soft tissue noted. <DAI BaileyP - Last Filed: 07/12/24 15:38> Psych: Mental Status: mental status grossly normal <DAI BaileyP - Last Filed: 07/12/24 15:38> Objective Data Vital Signs Vital Signs: Vital Signs - 24 hr 07/11/24 20:00 07/11/24 20:24 07/11/24 20:41 Temperature 37.2 C Pulse Rate 74 85 Respiratory Rate 16 Blood Pressure 139/73 Pulse Oximetry 92 Oxygen Delivery Room Air 07/12/24 06:00 07/12/24 08:06 Temperature 36.9 C Pulse Rate 71 Respiratory Rate 18 Blood Pressure 129/50 L Pulse Oximetry 96 Oxygen Delivery Room Air <DAI BaileyP - Last Filed: 07/12/24 15:38> Intake/Output Intake/Output: Intake & Output 07/09/24 07/10/24 07/11/2425 23:59 23:59 23:59 23:59 Intake Total 3173 2578 1690 620 Balance 3170 3917 1690 620 <ELAYNE Bailey - Last Filed: 07/12/24 15:38> Meds/Results Medications: Active Medications Generic Name Dose Route Start Last Admin Trade Name Freq PRN Reason Stop Dose Admin Acetaminophen 1,000 mg 07/08/24 22:18 07/11/24 20:50 Acetaminophen 500 Mg Tablet PO 1,000 mg Q6H PRN Administration Mild Pain (1-3) or Fever Alprazolam 1 mg 07/09/24 03:06 07/11/24 20:50 Alprazolam (*Crx) 0.5 Mg Tablet PO 1 mg BID PRN Administration Anxiety Atenolol 50 mg 07/10/24 21:00 07/11/24 20:41 Atenolol 50 Mg Tablet PO 50 mg QHS TIFF Administration Atorvastatin Calcium 40 mg 07/09/24 21:00 07/11/24 20:43 Atorvastatin 40 Mg Tablet PO 40 mg HS TIFF Administration Dextrose 12.5 gm 07/08/24 22:18 Dextrose 50% 25 Gm/50 Ml Syringe IV PUSH PRN PRN Hypoglycemia Protocol Duloxetine HCl 60 mg 07/09/24 09:00 07/12/24 08:06 Duloxetine Hcl 60 Mg Capsule.Dr PO 60 mg DAILY TIFF Administration Enoxaparin Sodium 40 mg 07/09/24 09:00 07/12/24 08:06 Enoxaparin 40 Mg/0.4 Ml Syringe SUB-Q 40 mg DAILY TIFF Administration Glucagon 1 mg 07/08/24 22:18 Glucagon For Inj 1 Mg Vial IM PRN PRN Hypoglycemia Protocol Glucose 15 gm 07/08/24 22:18 Glucose Oral Gel 15 Gm Of Glucse In 37.5 Gm Tube PO PRN PRN Hypoglycemia Protocol Dextrose 1,000 mls @ 100 mls/hr 07/08/24 22:18 Dextrose 5% 1,000 Ml IVPB PRN PRN Hypoglycemia Protocol Cefepime HCl 2 gm in 50 mls @ 100 mls/hr 07/10/24 21:00 07/12/24 08:36 Maxipime 2 Gm/Ns 50 Ml IVPB Infused Q12HR TIFF Infusion Vancomycin HCl 1,750 mg in 500 mls @ 250 mls/hr 07/12/24 10:00 07/12/24 09:43 Vancomycin 1,750 Mg/Ns 500 Ml IVPB 250 mls/hr Q12H TIFF Administration Insulin Aspart 2 - 5 units 07/10/24 08:00 07/12/24 12:14 Insulin Aspart (*Bkc) 100 Units/Ml SUB-Q Not Given TIDWM [facility] Protocol Metronidazole 500 mg 07/10/24 15:00 07/12/24 06:33 Metronidazole 500 Mg Tablet PO 500 mg Q8HR TIFF Administration Ondansetron HCl 4 mg 07/08/24 22:18 Ondansetron Inj 4 Mg/2 Ml Vial IV PUSH Q4H PRN Nausea Potassium Chloride 20 meq 07/10/24 09:00 07/12/24 08:06 Potassium Chloride 20 Meq Er Tablet PO 20 meq DAILY TIFF Administration Trazodone HCl 100 mg 07/09/24 21:00 07/11/24 20:43 Trazodone Hcl 50 Mg Tablet PO 100 mg HS TIFF Administration <ELAYNE Bailey - Last Filed: 07/12/24 15:38> Radiology Results: ITS Impressions Foot CT 07/08/24 19:41 IMPRESSION: Tract of fluid attenuation within the area of clinical concern, as detailed above. The entirety of this collection is likely visible with ultrasound, if needed for drainage. Soft Tissue Ultrasound 07/09/24 20:25 IMPRESSION: 1. Soft tissue swelling with heterogeneous echogenicity involving the plantar aspect of the forefoot centered at the base of the fourth digit correlating with the CT abnormality, consistent with inflammation/infection and necrosis. No significant drainable fluid collection. Note that non-drainable necrosis and abscess can have the same appearance by CT. Foot X-Ray 07/10/24 19:35 IMPRESSION: As above. Ankle Brachial Index 07/10/24 20:09 IMPRESSION: Markedly diminished toe brachial index bilaterally. Normal MONIKA bilaterally <ELAYNE Bailey - Last Filed: 07/12/24 15:38> Labs Labs: Laboratory Results - last 24 hr 07/11/24 07/11/24 07/12/24 16:56 20:28 07:58 WBC RBC Hgb Hct MCV MCH MCHC RDW Plt Count MPV Immature Gran % (Auto) Neut % (Auto) Lymph % (Auto) [place] % (Auto) Eos % (Auto) Baso % (Auto) Lymph # (Auto) [place] # (Auto) Eos # (Auto) Baso # (Auto) Abs Immat Gran (auto) Absolute Neuts (auto) Absolute Nucleated RBC Nucleated RBC % Sodium Potassium Chloride Carbon Dioxide Anion Gap BUN Creatinine Estim Creat Clear Calc Estimated GFR Glucose POC Capillary Glucose 135 H 107 H Calcium Magnesium Total Bilirubin AST ALT Alkaline Phosphatase Total Protein Albumin Vancomycin Trough 12.2 07/12/24 07/12/24 07/12/24 07:59 08:31 11:50 WBC 11.1 H RBC 3.49 L Hgb 10.6 L Hct 31.9 L MCV 91.4 MCH 30.4 MCHC 33.2 RDW 14.6 H Plt Count 344 MPV 8.9 Immature Gran % (Auto) 1.2 H Neut % (Auto) 68.8 Lymph % (Auto) 15.7 L [place] % (Auto) 11.2 H Eos % (Auto) 2.5 Baso % (Auto) 0.6 Lymph # (Auto) 1.74 [place] # (Auto) 1.2 H Eos # (Auto) 0.3 Baso # (Auto) 0.1 Abs Immat Gran (auto) 0.13 H Absolute Neuts (auto) 7.6 H Absolute Nucleated RBC 0.000 Nucleated RBC % 0.0 Sodium 139 Potassium 4.4 Chloride 109 H Carbon Dioxide 28 Anion Gap 2 L BUN 7 Creatinine 0.52 L Estim Creat Clear Calc 90 Estimated GFR > 60 Glucose 109 POC Capillary Glucose 105 157 H Calcium 8.3 L Magnesium 2.2 Total Bilirubin 0.7 AST 38 H ALT 18 Alkaline Phosphatase 110 Total Protein 6.0 L Albumin 2.9 L Vancomycin Trough <ELAYNE Bailey - Last Filed: 07/12/24 15:38>
[2024-07-12 14:26] VITALS: BP 152/63; PULSE 85; RESP 16; TEMP 36.4; O2SAT 96
[2024-07-12 17:32] LABS: Glucose Point of Care 115 mg/dl (65-105)
[2024-07-12 21:04] VITALS: PULSE 78
[2024-07-12] MEDS: atenoloL 50 MG TABLET PO (21:04)
[2024-07-12] MEDS: ATORVASTATIN 40 MG TABLET PO (21:04)
[2024-07-12] MEDS: ACETAMINOPHEN 500 MG TABLET 1000 MG PO (21:05)
[2024-07-12] MEDS: ALPRAZolam (*CRX) 0.5 MG TABLET 1 MG PO (21:05)
[2024-07-12] MEDS: traZODone HCL 50 MG TABLET 100 MG PO (21:05)
[2024-07-12 22:40] VITALS: BP 148/57; PULSE 78; RESP 18; TEMP 36.7; O2SAT 96
[2024-07-13] VITALS (13 sets, daily range): BP systolic 98–158; BP diastolic 49–71; PULSE 62–88; RESP 14–18; TEMP 36.1–37; O2SAT 92–100
[2024-07-13 05:58] LABS: Basophils Absolute Auto 0.1 K/mm3 (0.0-0.1); Basophils Percent Auto 0.7 % (0.2-1.2); Eosinophils Absolute Auto 0.2 K/mm3 (0-0.3); Eosinophils Percent Auto 2.6 % (0-4.4); Hematocrit 32.4 % (37.0-47.0); Hemoglobin 10.4 g/dL (12.0-15.0); Immature Granulocyte Absolute 0.12 K/mm3 (0.00-0.031); Immature Granulocyte Percent A 1.3 % (0-0.5); Lymphocytes Absolute Auto 1.94 K/mm3 (0.9-3.2); Lymphocytes Percent Auto 21.4 % (18.3-44.2); Mean Corpuscular HGB Conc 32.1 g/dl (32-36); Mean Corpuscular Hemoglobin 29.8 pg (26-34); Mean Corpuscular Volume 92.8 fl (80-100); Mean Platelet Volume 8.9 fl (7.4-10.4); Monocytes Absolute Auto 1.2 K/mm3 (0.1-0.6); Monocytes Percent Auto 13.2 % (2.6-8.5); Neutrophils Absolute Auto 5.5 K/mm3 (1.3-6.7); Neutrophils Percent Auto 60.8 % (45.5-73.1); Platelet Count Result 340 k/mm3 (150-375); Red Blood Count 3.49 M/mm3 (4.2-5.4); Red Cell Distribution Width 14.6 % (11.5-14.5); White Blood Count 9.1 K/mm3 (4.5-10.0)
[2024-07-13 06:12] LABS: Alanine Aminotransferase 31 U/L (6-35); Albumin Level 2.7 g/dL (3.5-5.1); Alkaline Phosphatase 98 U/L (38-126); Anion Gap 4 mmol/L (4-12); Aspartate Amino Transferase 77 U/L (14-36); Bilirubin,Total 0.7 mg/dL (0.2-1.3); Blood Urea Nitrogen 7 mg/dL (7-17); Calcium 8.2 mg/dL (8.4-10.2); Carbon Dioxide 26 mmol/L (22-30); Chloride 108 mmol/L (98-107); Estimated CRCL calculation 90 ml/min; Estimated Glomerular Filt Rate > 60; Glucose 107 mg/dL (65-110); Magnesium 2.2 mg/dL (1.6-2.3); Potassium 4.3 mmol/L (3.4-5.0); Sodium 138 mmol/L (137-145)
--- NOTE | 2024-07-13 07:03 | WPDHPUPDATE1 ---
History and Physical Update Update Date/Time: 07/13/24 07:03 History and Physical has been reviewed, including an updated exam of the patient. There are NO changes in the patient's condition. Risks, benefits, and alternatives have been discussed and questions answered. Patient agrees to proceed with procedure.
--- NOTE | 2024-07-13 08:03 | ECG_ITS ---
Test Date: 2024-07-13 08:10:02 Measurements Intervals [place] Rate: 72 P: 0 W[place]: 0 QRS: -58 QRSD: 121 T: 15 QT: 391 QTc: 430 Interpretive Statements ATRIAL FIBRILLATION LEFT ANTERIOR FASCICULAR BLOCK [QRS AXIS <= -45, QR IN I, RS IN II] SEPTAL MYOCARDIAL INFARCTION , PROBABLY OLD [40+ ms Q WAVE IN V1/V2] ABNORMAL ECG No previous ECG available for comparison Electronically Signed On 07-14-2024 10:23:49 [employer] by Yosvany Tao M.D.
[2024-07-13] MEDS: DULoxetine HCL 60 MG CAPSULE.DR PO (08:17)
[2024-07-13] MEDS: metroNIDAZOLE 500 MG TABLET PO ×3 (08:17→21:08)
[2024-07-13] MEDS: CEFEPIME 2 GM/NS 50 ML 2 GM/50 ML BAG IVPB ×2 (09:00→21:09)
[2024-07-13] MEDS: LACTATED RINGERS 1,000 ML 30 ML IV CONT (09:00)
[2024-07-13 09:04] LABS: Glucose Point of Care 115 mg/dl (65-105)
[2024-07-13 09:40] LABS: Glucose Point of Care 115 mg/dl (65-105)
--- NOTE | 2024-07-13 09:54 | WPDANESEPPF ---
Anes - Initial Pre Proc Eval Procedure: Operation Date: 07/13/24 10:00 Proposed Procedures p Right Fourth Toe Amputation - Lorenzo Tineo MD Date/Time: 07/13/24 09:54 Surgeon: Veronica Grigsby APRN Pre Op Diagnosis: Cellulitis/Abscess R foot/toes, Diabetic, Hypokale Patient Data Age: 69 Gender: F Height: 1.63 m Weight: 83 kg Last Vital Signs Temp 37.0 C 07/13/24 08:58 Pulse 76 07/13/24 08:58 Resp 18 07/13/24 08:58 BP 158/67 H 07/13/24 08:58 Pulse Ox 95 07/13/24 08:58 O2 Del Method Room Air 07/13/24 08:58 Allergies Allergy/AdvReac Type Severity Reaction Status Date / Time No Known Allergies Allergy Verified 07/13/24 09:29 Home Medications ?Medication ?Instructions ?Recorded ?Confirmed ?Type alprazolam 1 mg tablet 1 mg PO BID PRN Anxiety 01/21/23 07/09/24 History atorvastatin 40 mg tablet 40 mg PO HS 01/21/23 07/09/24 History duloxetine 60 mg capsule,delayed 60 mg PO DAILY 01/21/23 07/09/24 History release metformin 500 mg tablet 500 mg PO BID 01/21/23 07/09/24 History trazodone 100 mg tablet 100 mg PO HS 01/21/23 07/09/24 History triamterene 37.5 1 tablet PO DAILY 01/21/23 07/09/24 History mg-hydrochlorothiazide 25 mg tablet atenolol 50 mg tablet 50 mg PO QHS 07/09/24 07/09/24 History potassium chloride 20 mEq 20 meq PO DAILY 07/09/24 07/09/24 History tablet,extended release(part/cryst) Laboratory Tests 07/12/24 07/12/24 07/12/24 11:50 17:30 20:31 WBC RBC Hgb Hct MCV MCH MCHC RDW Plt Count MPV Immature Gran % (Auto) Neut % (Auto) Lymph % (Auto) [place] % (Auto) Eos % (Auto) Baso % (Auto) Lymph # (Auto) [place] # (Auto) Eos # (Auto) Baso # (Auto) Abs Immat Gran (auto) Absolute Neuts (auto) Absolute Nucleated RBC Nucleated RBC % Sodium Potassium Chloride Carbon Dioxide Anion Gap BUN Creatinine Estim Creat Clear Calc Estimated GFR Glucose POC Capillary Glucose 157 H mg/dl 115 H mg/dl 115 H mg/dl (65-105) (65-105) (65-105) Calcium Magnesium Total Bilirubin AST ALT Alkaline Phosphatase Total Protein Albumin 07/13/24 07/13/24 05:43 09:16 WBC 9.1 K/mm3 (4.5-10.0) RBC 3.49 L M/mm3 (4.2-5.4) Hgb 10.4 L g/dL (12.0-15.0) Hct 32.4 L % (37.0-47.0) MCV 92.8 fl (80-100) MCH 29.8 pg (26-34) MCHC 32.1 g/dl (32-36) RDW 14.6 H % (11.5-14.5) Plt Count 340 k/mm3 (150-375) MPV 8.9 fl (7.4-10.4) Immature Gran % (Auto) 1.3 H % (0-0.5) Neut % (Auto) 60.8 % (45.5-73.1) Lymph % (Auto) 21.4 % (18.3-44.2) [place] % (Auto) 13.2 H % (2.6-8.5) Eos % (Auto) 2.6 % (0-4.4) Baso % (Auto) 0.7 % (0.2-1.2) Lymph # (Auto) 1.94 K/mm3 (0.9-3.2) [place] # (Auto) 1.2 H K/mm3 (0.1-0.6) Eos # (Auto) 0.2 K/mm3 (0-0.3) Baso # (Auto) 0.1 K/mm3 (0.0-0.1) Abs Immat Gran (auto) 0.12 H K/mm3 (0.00-0.031) Absolute Neuts (auto) 5.5 K/mm3 (1.3-6.7) Absolute Nucleated RBC 0.000 K/mm3 (0.0-0.012) Nucleated RBC % 0.0 % (0.0-0.2) Sodium 138 mmol/L (137-145) Potassium 4.3 mmol/L (3.4-5.0) Chloride 108 H mmol/L (98-107) Carbon Dioxide 26 mmol/L (22-30) Anion Gap 4 mmol/L (4-12) BUN 7 mg/dL (7-17) Creatinine 0.52 L mg/dL (0.7-1.0) Estim Creat Clear Calc 90 ml/min Estimated GFR > 60 (59 - ) Glucose 107 mg/dL (65-110) POC Capillary Glucose 115 H mg/dl (65-105) Calcium 8.2 L mg/dL (8.4-10.2) Magnesium 2.2 mg/dL (1.6-2.3) Total Bilirubin 0.7 mg/dL (0.2-1.3) AST 77 H U/L (14-36) ALT 31 U/L (6-35) Alkaline Phosphatase 98 U/L (38-126) Total Protein 6.0 L g/dL (6.3-8.2) Albumin 2.7 L g/dL (3.5-5.1) Patient hx anesthesia problems: none Family hx anesthesia problems: none Results Review: All pre-operative results and documents have been reviewed as part of the pre-operative evaluation. 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 She has 3 cats. Surrogate medical decision maker: Elio Hollis, son. Code status: DNR/DNI (however the patient states that she would be okay with pressors and noninvasive ventilator support if needed) Smoking status: Never smoker Alcohol intake: never Substance use: former Substance use type: marijuana Last use: 1999 Do You Feel Safe in your Home?: Yes Lack of Transportation: No Lack of Food: Never True Current Housing: I Have Housing Concerned About Future Housing: No Difficulty Paying Gas/Electric Bills: No Difficulty Paying for Meds: No Currently Unemployed: No Education: Associate Degree Difficulty w/ Childcare or Family Care: No Additional living arrangements comments: She has been since 2019. Her and her were for 48 years prior to his . She has 2 grown children. Lives in own home in [place]. One of her sons recently moved back in with her. 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 Spiritual care concerns: No Anes - Eval Final PreProcedure Day of Procedure 07/13/24 09:54 Patient weight: obese Heart: regular rate and rhythm Lungs: clear to auscultation Airway: Mallampati scale class II Neurological: alert and oriented Last oral intake: >/= 8 hours ASA classification: III Emergent: no Anesthetic plan: proceed Anesthesia type and monitoring: general LMA and standard monitoring Results Review: All pre-operative results and documents have been reviewed as part of the pre-operative evaluation. Informed Consent: The patient's anesthetic plan and its attendant risks and benefits were discussed with the patient/family/POA. Questions were solicited and answers provided to the satisfaction of the patient/family/POA.
--- NOTE | 2024-07-13 10:07 | P.OP_ITS ---
Procedure Note - Detailed Date of Procedure 07/13/24 Pre-op Diagnosis Cellulitis/Abscess R foot/toes, Diabetic, Hypokale Post-op Diagnosis Same Procedure Performed Right 4th toe amputation, excisional debridement of diabetic foot ulcer, right. Surgeon Lorenzo Tineo MD [employer]ometer [employer]sembler [employer]er [employer] assistant Anesthesia General Indications 69-year-old woman with diabetes, peripheral neuropathy, peripheral arterial disease and history of previous amputation toe presents infection necrosis right 4th toe. No improvement in the toe with local debridement and IV antibiotics. Worsening infection and necrosis of the 4th toe noted and presents now for operative treatment with plan for amputation Findings 1 x 1 cm ulcer plantar right foot extending to muscle layer. Infection and necrosis involving the 4th toe right foot. Description of Procedure Patient identified in the preoperative holding. Informed consent given. Operative extremity marked. Patient received intravenous antibiotics. Patient brought to the operating room where underwent general anesthetic by anesthesia team. Positioned supine on operating room table. Time-out performed confirming the patient, site of the surgery and the plan. Right foot prepped and draped in usual sterile surgical fashion using Betadine prep solution. Local anesthetic with 0.5% Marcaine plain. Foot ankle exsanguinated and calf tourniquet inflated to 250 mmHg. There was a ulcer over the medial aspect of the 4th toe as well as the plantar 4th metatarsal head. Purulent material, infection and necrosis noted on the medial aspect of the 4th toe involving 50% of the toe. Toe not able to be salvaged. Fifteen blade knife used to make a fishmouth shaped incision at the base of the 4th toe. Hemostasis controlled with electrocautery. Metatarsophalangeal Joint incised circumferentially with a 15 blade knife and toe removed and passed off the table. Thorough irrigation done. Articular surface of the metatarsal head removed with a rongeur and smoothed. Wound thoroughly irrigated again. Plantar ulcer then addressed. 15 blade knife used to sharply excise skin, subcutaneous tissue and muscle that was devitalized and nonviable from the ulcer and surrounding tissue area. Viable tissue left place. Good Bleeding skin edge noted. Bleeding controlled with electrocautery after releasing the tourniquet. Wound closed with 3-0 Monocryl interrupted suture for the deep tissue, 3 O Monocryl interrupted suture for the subcutaneous tissue and 4 O nylon and 0 Prolene interrupted sutures for the skin. Sterile dressings applied. Patient awoke from anesthesia, extubated and taken to the recovery room in stable condition. All sponge needle and instrument counts correct at the end the case. Estimated Blood Loss 10 Tourniquet Time Total Tourniquet Time: 22 Drains No Packing No Pathology Yes (Right 4th toe) Complications None Condition Stable Disposition PACU [facility] Billing Surgery - Charge Forward: Surgery Billing ([id number], [id number])
[2024-07-13] MEDS: VANCOMYCIN 1,750 MG/NS 500 ML 1,750 MG/500 ML BAG 250 MG IVPB (10:28)
[2024-07-13] MEDS: BUPivacaine HCL 0.5% 10 ML AMP 20 ML INFILTRATE (10:30)
[2024-07-13 11:19] LABS: Glucose Point of Care 112 mg/dl (65-105)
--- NOTE | 2024-07-13 11:38 | P.PNIM_ITS ---
Progress Note: A&P Assessment and Plan (1) Cellulitis and abscess of toe of right foot: Code(s): L03.031 - Cellulitis of right toe; L02.611 - Cutaneous abscess of right foot Status: Acute Assessment and Plan: * Consulted Dr. Rivka Saavedra * Imaging shows consistent with inflammation/infection and necrosis and possible osteomyelitis * Suspect degree of gangrene * Continue prn pain meds * Continue abx of Vanc, Cefepime and oral Flagyl. * Pain management * Wound Consult. 07/11: Patient underwent OR debridement of wound with necrotic tissue removed Pending wound cultures patient continues on cefepime, vancomycin and flagyl 07/12 awaiting culture report 07/13 culture shows staph aures Pt sp right 4th toe amputation, excisional debridement of diabetic foot ulcer, right under orthopedics MD (2) Ulcer of foot due to type 2 diabetes mellitus: Code(s): E11.621 - Type 2 diabetes mellitus with foot ulcer; L97.509 - Non-pressure chronic ulcer of other part of unspecified foot with unspecified severity Status: Acute Assessment and Plan: * follow surgery recommendations Pt sp right 4th toe amputation, excisional debridement of diabetic foot ulcer, right under orthopedics (3) Hypokalemia: Code(s): E87.6 - Hypokalemia Status: Acute Assessment and Plan: * Low at 2.8 on arrival. * Received initial 40 mEq po and IV in ER. * Repeat potassium 3.0. Pt given another 40 mEq po * Will trend with daily labs. 07/10/2024 * Potassium 3.2 * replenish with 40Meq 07/11: Potassium 3.9, magnesium 2.2 07/12: potassium is 4 07/13: potassium is 4.3 (4) [place]ST[place] (acute kidney injury): Code(s): N17.9 - Acute kidney failure, unspecified Status: Acute Assessment and Plan: * Continue to monitor. * Cr/BUN today 1.0/. * Receiving IVF. RESOLVED 07/11: No current IV fluids, patient tolerating diet and renal function back to baseline 07/12 can dc fluids 07/13 pt in OR today Pt sp right 4th toe amputation, excisional debridement of diabetic foot ulcer, right under orthopedics MD (5) Type 2 diabetes mellitus: Qualifiers: Diabetes mellitus complication detail: with polyneuropathy Diabetes mellitus complication status: with neurologic complications Diabetes mellitus watermaster insulin use: without watermaster use Qualified Code(s): E11.42 - Type 2 diabetes mellitus with diabetic polyneuropathy Code(s): E11.9 - Type 2 diabetes mellitus without complications Status: Acute Assessment and Plan: * Check A1C * Continue SSI * Hypoglycemic protocol * Glucose checks AC and HS and PRN * Diabetic diet Subjective Date/time seen: 07/13/24 11:38 Interval history: Pt admitted with R toe cellulitis, dm + OM Pt sp right 4th toe amputation, excisional debridement of diabetic foot ulcer, right under orthopedics MD Pt seen after procedure no specific complaints having some foot pains Review of Systems Review of Systems: some foot pain Exam Narrative: GENERAL: Well-appearing, well-nourished, and in no acute distress. HEAD: Normocephalic, atraumatic. ENT:? Mucous membranes moist. CHEST: Clear to auscultation.? No respiratory distress. HEART: Regular rate and rhythm. ? Normal peripheral pulses. ABDOMEN: Soft, nontender, nondistended. EXTREMITIES: Normal range of motion. Right foot with bandage and post op shoe, longoria drainage noted on bandage. SKIN: Warm dry normal color NEURO: Alert and oriented x3. PSYCH: Normal mood and affect Objective Data Vital Signs Vital Signs: Vital Signs - 24 hr 07/12/24 14:26 07/12/24 20:00 07/12/24 21:04 Temperature 36.4 C L Pulse Rate 85 78 Respiratory Rate 16 Blood Pressure 152/63 H Pulse Oximetry 96 Oxygen Delivery Room Air Oxygen Flow Rate 07/12/24 22:40 07/13/24 07:11 07/13/24 08:58 Temperature 36.7 C 36.7 C 37.0 C Pulse Rate 78 83 76 Respiratory Rate 18 16 18 Blood Pressure 148/57 H 126/62 158/67 H Pulse Oximetry 96 93 95 Oxygen Delivery Room Air Oxygen Flow Rate 07/13/24 10:58 07/13/24 11:10 07/13/24 11:25 Temperature 36.6 C Pulse Rate 68 65 63 Respiratory Rate 14 14 14 Blood Pressure 98/51 L 107/49 L 101/52 L Pulse Oximetry 98 99 100 Oxygen Delivery Simple Face Mask Simple Face Mask Room Air Oxygen Flow Rate 6 6 Intake/Output Intake/Output: Intake & Output 07/10/24 07/11/24 07/12/24 07/13/24 23:59 23:59 23:59 23:59 Intake Total 3483 1690 2330 559 Balance 3918 1690 2330 559 Meds/Results Medications: Active Medications Generic Name Dose Route Start Last Admin Trade Name Freq PRN Reason Stop Dose Admin Acetaminophen 1,000 mg 07/08/24 22:18 07/12/24 21:05 Acetaminophen 500 Mg Tablet PO 1,000 mg Q6H PRN Administration Mild Pain (1-3) or Fever Alprazolam 1 mg 07/09/24 03:06 07/12/24 21:05 Alprazolam (*Crx) 0.5 Mg Tablet PO 1 mg BID PRN Administration Anxiety Atenolol 50 mg 07/10/24 21:00 07/12/24 21:04 Atenolol 50 Mg Tablet PO 50 mg QHS TIFF Administration Atorvastatin Calcium 40 mg 07/09/24 21:00 07/12/24 21:04 Atorvastatin 40 Mg Tablet PO 40 mg HS TIFF Administration Dextrose 12.5 gm 07/08/24 22:18 Dextrose 50% 25 Gm/50 Ml Syringe IV PUSH PRN PRN Hypoglycemia Protocol Duloxetine HCl 60 mg 07/09/24 09:00 07/13/24 08:17 Duloxetine Hcl 60 Mg Capsule.Dr PO 60 mg DAILY TIFF Administration Enoxaparin Sodium 40 mg 07/09/24 09:00 07/12/24 08:06 Enoxaparin 40 Mg/0.4 Ml Syringe SUB-Q 40 mg DAILY TIFF Administration Glucagon 1 mg 07/08/24 22:18 Glucagon For Inj 1 Mg Vial IM PRN PRN Hypoglycemia Protocol Glucose 15 gm 07/08/24 22:18 Glucose Oral Gel 15 Gm Of Glucse In 37.5 Gm Tube PO PRN PRN Hypoglycemia Protocol Dextrose 1,000 mls @ 100 mls/hr 07/08/24 22:18 Dextrose 5% 1,000 Ml IVPB PRN PRN Hypoglycemia Protocol Cefepime HCl 2 gm in 50 mls @ 100 mls/hr 07/10/24 21:00 07/13/24 09:00 Maxipime 2 Gm/Ns 50 Ml IVPB 100 mls/hr Q12HR TIFF Administration Vancomycin HCl 1,750 mg in 500 mls @ 250 mls/hr 07/12/24 10:00 07/13/24 10:30 Vancomycin 1,750 Mg/Ns 500 Ml IVPB Infused Q12H TIFF Infusion Lactated Ringer's 1,000 mls @ 30 mls/hr 07/13/24 07:15 07/13/24 10:58 Lr - Lactated Ringers Iv IV CONT 0 mls/hr .Q24H TIFF Infusion Insulin Aspart 2 - 5 units 07/10/24 08:00 07/12/24 17:41 Insulin Aspart (*Bkc) 100 Units/Ml SUB-Q Not Given TIDWM [facility] Protocol Metronidazole 500 mg 07/10/24 15:00 07/13/24 08:17 Metronidazole 500 Mg Tablet PO 500 mg Q8HR TIFF Administration Ondansetron HCl 4 mg 07/08/24 22:18 Ondansetron Inj 4 Mg/2 Ml Vial IV PUSH Q4H PRN Nausea Potassium Chloride 20 meq 07/10/24 09:00 07/12/24 08:06 Potassium Chloride 20 Meq Er Tablet PO 20 meq DAILY TIFF Administration Trazodone HCl 100 mg 07/09/24 21:00 07/12/24 21:05 Trazodone Hcl 50 Mg Tablet PO 100 mg HS TIFF Administration Radiology Results: ITS Impressions Foot CT 07/08/24 19:41 IMPRESSION: Tract of fluid attenuation within the area of clinical concern, as detailed ab ove. The entirety of this collection is likely visible with ultrasound, if needed for drainage. Soft Tissue Ultrasound 07/09/24 20:25 IMPRESSION: 1. Soft tissue swelling with heterogeneous echogenicity involving the plantar aspect of the forefoot centered at the base of the fourth digit correlating with the CT abnormality, consistent with inflammation/infection and necrosis. No significant drainable fluid collection. Note that non-drainable necrosis and abscess can have the same appearance by CT. Foot X-Ray 07/10/24 19:35 IMPRESSION: As above. Ankle Brachial Index 07/10/24 20:09 IMPRESSION: Markedly diminished toe brachial index bilaterally. Normal MONIKA bilaterally Labs Labs: Laboratory Results - last 24 hr 07/12/24 07/12/24 07/12/24 11:50 17:30 20:31 WBC RBC Hgb Hct MCV MCH MCHC RDW Plt Count MPV Immature Gran % (Auto) Neut % (Auto) Lymph % (Auto) [place] % (Auto) Eos % (Auto) Baso % (Auto) Lymph # (Auto) [place] # (Auto) Eos # (Auto) Baso # (Auto) Abs Immat Gran (auto) Absolute Neuts (auto) Absolute Nucleated RBC Nucleated RBC % Sodium Potassium Chloride Carbon Dioxide Anion Gap BUN Creatinine Estim Creat Clear Calc Estimated GFR Glucose POC Capillary Glucose 157 H 115 H 115 H Calcium Magnesium Total Bilirubin AST ALT Alkaline Phosphatase Total Protein Albumin 07/13/24 07/13/24 07/13/24 05:43 09:16 11:10 WBC 9.1 RBC 3.49 L Hgb 10.4 L Hct 32.4 L MCV 92.8 MCH 29.8 MCHC 32.1 RDW 14.6 H Plt Count 340 MPV 8.9 Immature Gran % (Auto) 1.3 H Neut % (Auto) 60.8 Lymph % (Auto) 21.4 [place] % (Auto) 13.2 H Eos % (Auto) 2.6 Baso % (Auto) 0.7 Lymph # (Auto) 1.94 [place] # (Auto) 1.2 H Eos # (Auto) 0.2 Baso # (Auto) 0.1 Abs Immat Gran (auto) 0.12 H Absolute Neuts (auto) 5.5 Absolute Nucleated RBC 0.000 Nucleated RBC % 0.0 Sodium 138 Potassium 4.3 Chloride 108 H Carbon Dioxide 26 Anion Gap 4 BUN 7 Creatinine 0.52 L Estim Creat Clear Calc 90 Estimated GFR > 60 Glucose 107 POC Capillary Glucose 115 H 112 H Calcium 8.2 L Magnesium 2.2 Total Bilirubin 0.7 AST 77 H ALT 31 Alkaline Phosphatase 98 Total Protein 6.0 L Albumin 2.7 L
[2024-07-13] MEDS: POTASSIUM CHLORIDE 20 MEQ ER TABLET PO (11:58)
[2024-07-13 12:26] LABS: Glucose Point of Care 105 mg/dl (65-105)
[2024-07-13] MEDS: ACETAMINOPHEN 500 MG TABLET 1000 MG PO (16:16)
[2024-07-13 17:13] LABS: Glucose Point of Care 137 mg/dl (65-105)
[2024-07-13] MEDS: atenoloL 50 MG TABLET PO (21:08)
[2024-07-13] MEDS: ATORVASTATIN 40 MG TABLET PO (21:08)
[2024-07-13] MEDS: ALPRAZolam (*CRX) 0.5 MG TABLET 1 MG PO (21:14)
[2024-07-13] MEDS: traZODone HCL 50 MG TABLET 100 MG PO (21:14)
[2024-07-13] MEDS: HYDROcodone/acetaminophen (*CRX) 5-325 MG TABLET 1 TAB PO (21:15)
[2024-07-14] VITALS (7 sets, daily range): BP systolic 121–142; BP diastolic 43–62; PULSE 63–76; RESP 16–20; TEMP 36.2–36.7; O2SAT 95–98
[2024-07-14 06:14] LABS: Basophils Absolute Auto 0.1 K/mm3 (0.0-0.1); Basophils Percent Auto 0.8 % (0.2-1.2); Eosinophils Absolute Auto 0.3 K/mm3 (0-0.3); Eosinophils Percent Auto 3.1 % (0-4.4); Hematocrit 31.4 % (37.0-47.0); Hemoglobin 9.9 g/dL (12.0-15.0); Immature Granulocyte Absolute 0.16 K/mm3 (0.00-0.031); Immature Granulocyte Percent A 1.8 % (0-0.5); Lymphocytes Percent Auto 22.1 % (18.3-44.2); Mean Corpuscular HGB Conc 31.5 g/dl (32-36); Mean Corpuscular Volume 95.2 fl (80-100); Mean Platelet Volume 8.9 fl (7.4-10.4); Monocytes Absolute Auto 1.2 K/mm3 (0.1-0.6); Monocytes Percent Auto 13.3 % (2.6-8.5); Neutrophils Absolute Auto 5.3 K/mm3 (1.3-6.7); Neutrophils Percent Auto 58.9 % (45.5-73.1); Platelet Count Result 357 k/mm3 (150-375); Red Cell Distribution Width 14.7 % (11.5-14.5)
[2024-07-14 06:29] LABS: Alanine Aminotransferase 33 U/L (6-35); Albumin Level 2.8 g/dL (3.5-5.1); Alkaline Phosphatase 88 U/L (38-126); Anion Gap 3 mmol/L (4-12); Aspartate Amino Transferase 54 U/L (14-36); Bilirubin,Total 0.4 mg/dL (0.2-1.3); Blood Urea Nitrogen 8 mg/dL (7-17); Calcium 8.3 mg/dL (8.4-10.2); Carbon Dioxide 27 mmol/L (22-30); Chloride 109 mmol/L (98-107); Estimated CRCL calculation 95 ml/min; Estimated Glomerular Filt Rate > 60; Glucose 113 mg/dL (65-110); Magnesium 2.4 mg/dL (1.6-2.3); Potassium 4.4 mmol/L (3.4-5.0); Sodium 139 mmol/L (137-145)
[2024-07-14] MEDS: metroNIDAZOLE 500 MG TABLET PO ×3 (06:52→22:14)
[2024-07-14 08:11] LABS: Glucose Point of Care 129 mg/dl (65-105)
--- NOTE | 2024-07-14 08:45 | P.PNAN_ITS ---
Anes - Prog Note Post-Op Date/Time: 07/14/24 08:45 Cardiovascular status: normal Respiratory status: normal Airway patency: baseline Mental status: baseline Post-Op hydration status: normal Vital Signs: Last Vital Signs Temp 97.2 F L 07/14/24 05:32 Pulse 63 07/14/24 05:32 Resp 16 07/14/24 05:32 BP 131/43 L 07/14/24 05:32 Pulse Ox 95 07/14/24 05:32 O2 Del Method Room Air 07/13/24 20:00 O2 Flow Rate 6 07/13/24 11:10 Pain Score (VAS): 1 I/O: Intake & Output 07/13/24 07/14/24 07/14/24 23:59 07:59 15:59 Intake Total 2270 600 Balance 2270 600 Laboratory Tests 07/14/24 05:57 07/14/24 05:57 07/12/24 07/13/24 07/13/24 20:31 09:16 11:10 WBC RBC Hgb Hct MCV MCH MCHC RDW Plt Count MPV Immature Gran % (Auto) Neut % (Auto) Lymph % (Auto) [place] % (Auto) Eos % (Auto) Baso % (Auto) Lymph # (Auto) [place] # (Auto) Eos # (Auto) Baso # (Auto) Abs Immat Gran (auto) Absolute Neuts (auto) Absolute Nucleated RBC Nucleated RBC % Sodium Potassium Chloride Carbon Dioxide Anion Gap BUN Creatinine Estim Creat Clear Calc Estimated GFR Glucose POC Capillary Glucose 115 H 115 H 112 H Calcium Magnesium Total Bilirubin AST ALT Alkaline Phosphatase Total Protein Albumin 07/13/24 07/13/24 07/13/24 12:24 17:08 22:15 WBC RBC Hgb Hct MCV MCH MCHC RDW Plt Count MPV Immature Gran % (Auto) Neut % (Auto) Lymph % (Auto) [place] % (Auto) Eos % (Auto) Baso % (Auto) Lymph # (Auto) [place] # (Auto) Eos # (Auto) Baso # (Auto) Abs Immat Gran (auto) Absolute Neuts (auto) Absolute Nucleated RBC Nucleated RBC % Sodium Potassium Chloride Carbon Dioxide Anion Gap BUN Creatinine Estim Creat Clear Calc Estimated GFR Glucose POC Capillary Glucose 105 137 H 129 H Calcium Magnesium Total Bilirubin AST ALT Alkaline Phosphatase Total Protein Albumin 07/14/24 05:57 WBC 9.0 RBC 3.30 L Hgb 9.9 L Hct 31.4 L MCV 95.2 MCH 30.0 MCHC 31.5 L RDW 14.7 H Plt Count 357 MPV 8.9 Immature Gran % (Auto) 1.8 H Neut % (Auto) 58.9 Lymph % (Auto) 22.1 [place] % (Auto) 13.3 H Eos % (Auto) 3.1 Baso % (Auto) 0.8 Lymph # (Auto) 2.00 [place] # (Auto) 1.2 H Eos # (Auto) 0.3 Baso # (Auto) 0.1 Abs Immat Gran (auto) 0.16 H Absolute Neuts (auto) 5.3 Absolute Nucleated RBC 0.000 Nucleated RBC % 0.0 Sodium 139 Potassium 4.4 Chloride 109 H Carbon Dioxide 27 Anion Gap 3 L BUN 8 Creatinine 0.49 L Estim Creat Clear Calc 95 Estimated GFR > 60 Glucose 113 H POC Capillary Glucose Calcium 8.3 L Magnesium 2.4 H Total Bilirubin 0.4 AST 54 H ALT 33 Alkaline Phosphatase 88 Total Protein 6.0 L Albumin 2.8 L Microbiology 07/10/24 13:02 Foot - Unspecified Anaerobic Culture - Preliminary 07/10/24 13:02 Foot - Unspecified Aerobic Culture - Final Staphylococcus aureus Post-procedural complaints: none Patient Feedback: Patient satisfied with anesthetic care.pt states neuropathic pain being managed with with acetaminophen . denies any complaints or needs. is hopeful to go home today
[2024-07-14 08:52] LABS: Glucose Point of Care 101 mg/dl (65-105)
[2024-07-14] MEDS: CEFEPIME 2 GM/NS 50 ML 2 GM/50 ML BAG IVPB ×2 (09:35→22:12)
[2024-07-14] MEDS: ENOXAPARIN 40 MG/0.4 ML SYRINGE SUB-Q (09:37)
[2024-07-14] MEDS: POTASSIUM CHLORIDE 20 MEQ ER TABLET PO (09:37)
[2024-07-14] MEDS: DULoxetine HCL 60 MG CAPSULE.DR PO (09:37)
[2024-07-14 12:48] LABS: Glucose Point of Care 98 mg/dl (65-105)
--- NOTE | 2024-07-14 12:53 | P.PNIM_ITS ---
Progress Note: A&P Assessment and Plan (1) Osteomyelitis of fourth toe of right foot: Code(s): M86.9 - Osteomyelitis, unspecified Status: Acute Assessment and Plan: * 07/13 amputation * 07/14 continue postop cefepime, flagyl (2) Ulcer of foot due to type 2 diabetes mellitus: Code(s): E11.621 - Type 2 diabetes mellitus with foot ulcer; L97.509 - Non-pressure chronic ulcer of other part of unspecified foot with unspecified severity Status: Acute Assessment and Plan: * S/p debridement 07/13 * Continue wound care (3) Hypokalemia: Code(s): E87.6 - Hypokalemia Status: Acute Assessment and Plan: * Low at 2.8 on arrival. * Received initial 40 mEq po and IV in ER. * Repeat potassium 3.0. Pt given another 40 mEq po * Will trend with daily labs. 07/10/2024 * Potassium 3.2 * replenish with 40Meq 07/11: Potassium 3.9, magnesium 2.2 07/12: potassium is 4 07/13: potassium is 4.3 RESOLVED L (4) CHRISTIANA (acute kidney injury): Code(s): N17.9 - Acute kidney failure, unspecified Status: Acute Assessment and Plan: * Continue to monitor. * Cr/BUN today . * Receiving IVF. RESOLVED (5) Type 2 diabetes mellitus: Qualifiers: Diabetes mellitus senior care insulin use: without senior care use Diabetes mellitus complication status: with neurologic complications Diabetes mellitus complication detail: with polyneuropathy Qualified Code(s): E11.42 - Type 2 diabetes mellitus with diabetic polyneuropathy Code(s): E11.9 - Type 2 diabetes mellitus without complications Status: Acute Assessment and Plan: * A1C 5.2 * Continue SSI * 05/04 FBS 113 (6) Hypertension: Code(s): I10 - Essential (primary) hypertension Status: Acute Subjective Date/time seen: 07/14/24 12:53 Interval history: One day postop from right 4th toe amputation. Denied pain. Good appetite. No cp or sob. No gi/gu issues. No bleeding noted. Feels good. Review of Systems Review of Systems: All systems reviewed & are unremarkable except as noted in HPI and below Exam Narrative: HEENT: PERRL, sclerae nonicteric, pharyngeal mucosa pink and intact NECK: No JVD CHEST: Clear to auscultation. Normal effort. HEART: NL S1/S2, regular, no murmur ABDOMEN: BS+, soft, nontender, no mass, no bruits EXTREMITIES: No cyanosis, edema, or clubbing or left. RLE with postop dressing in place. NEUROLOGIC: CN intact and symmetric to inspection. MUSCULOSKELETAL: Tone and strength symmetric. PSYCH: Alert. Oriented to person, place, and time. Objective Data Vital Signs Vital Signs: Vital Signs - 24 hr 07/13/24 13:35 07/13/24 17:35 07/13/24 20:00 Temperature 97.6 F 97.3 F L Pulse Rate 76 88 Respiratory Rate 18 18 Blood Pressure 128/58 L 126/70 Pulse Oximetry 96 94 Oxygen Delivery Room Air 07/13/24 21:08 07/13/24 21:32 07/14/24 01:32 Temperature 97.0 F L 97.4 F L Pulse Rate 62 65 64 Respiratory Rate 16 20 Blood Pressure 115/54 L 121/44 L Pulse Oximetry 93 98 Oxygen Delivery 07/14/24 05:32 07/14/24 09:54 Temperature 97.2 F L 97.4 F L Pulse Rate 63 66 Respiratory Rate 16 18 Blood Pressure 131/43 L 135/55 L Pulse Oximetry 95 96 Oxygen Delivery Intake/Output Intake/Output: Intake & Output 07/11/24 07/12/24 07/13/24 07/14/24 23:59 23:59 23:59 23:59 Intake Total 1690 2330 2940 720 Balance 1690 2330 2940 720 Meds/Results Medications: Active Medications Generic Name Dose Route Start Last Admin Trade Name Freq PRN Reason Stop Dose Admin Acetaminophen 1,000 mg 07/08/24 22:18 07/13/24 16:16 Acetaminophen 500 Mg Tablet PO 1,000 mg Q6H PRN Administration Mild Pain (1-3) or Fever Hydrocodone Bitart/Acetaminophen 1 tab 07/13/24 20:33 07/13/24 21:15 Hydrocodone/Acetaminophen (*Crx) 5-325 Mg Tablet PO 1 tab Q4H PRN Administration Pain Rated 4-6 Alprazolam 1 mg 07/09/24 03:06 07/13/24 21:14 Alprazolam (*Crx) 0.5 Mg Tablet PO 1 mg BID PRN Administration Anxiety Atenolol 50 mg 07/10/24 21:00 07/13/24 21:08 Atenolol 50 Mg Tablet PO 50 mg QHS ITFF Administration Atorvastatin Calcium 40 mg 07/09/24 21:00 07/13/24 21:08 Atorvastatin 40 Mg Tablet PO 40 mg HS TIFF Administration Dextrose 12.5 gm 07/08/24 22:18 Dextrose 50% 25 Gm/50 Ml Syringe IV PUSH PRN PRN Hypoglycemia Protocol Duloxetine HCl 60 mg 07/09/24 09:00 07/14/24 09:37 Duloxetine Hcl 60 Mg Capsule.Dr PO 60 mg DAILY TIFF Administration Enoxaparin Sodium 40 mg 07/09/24 09:00 07/14/24 09:37 Enoxaparin 40 Mg/0.4 Ml Syringe SUB-Q 40 mg DAILY TIFF Administration Glucagon 1 mg 07/08/24 22:18 Glucagon For Inj 1 Mg Vial IM PRN PRN Hypoglycemia Protocol Glucose 15 gm 07/08/24 22:18 Glucose Oral Gel 15 Gm Of Glucse In 37.5 Gm Tube PO PRN PRN Hypoglycemia Protocol Dextrose 1,000 mls @ 100 mls/hr 07/08/24 22:18 Dextrose 5% 1,000 Ml IVPB PRN PRN Hypoglycemia Protocol Cefepime HCl 2 gm in 50 mls @ 100 mls/hr 07/10/24 21:00 07/14/24 09:35 Maxipime 2 Gm/Ns 50 Ml IVPB 100 mls/hr Q12HR TIFF Administration Insulin Aspart 2 - 5 units 07/10/24 08:00 07/14/24 09:34 Insulin Aspart (*Bkc) 100 Units/Ml SUB-Q Not Given TIDWM TIFF Protocol Metronidazole 500 mg 07/10/24 15:00 07/14/24 06:52 Metronidazole 500 Mg Tablet PO 500 mg Q8HR TIFF Administration Ondansetron HCl 4 mg 07/08/24 22:18 Ondansetron Inj 4 Mg/2 Ml Vial IV PUSH Q4H PRN Nausea Potassium Chloride 20 meq 07/10/24 09:00 07/14/24 09:37 Potassium Chloride 20 Meq Er Tablet PO 20 meq DAILY TIFF Administration Trazodone HCl 100 mg 07/09/24 21:00 07/13/24 21:14 Trazodone Hcl 50 Mg Tablet PO 100 mg HS TIFF Administration Radiology Results: ITS Impressions Foot CT 07/08/24 19:41 IMPRESSION: Tract of fluid attenuation within the area of clinical concern, as detailed above. The entirety of this collection is likely visible with ultrasound, if needed for drainage. Soft Tissue Ultrasound 07/09/24 20:25 IMPRESSION: 1. Soft tissue swelling with heterogeneous echogenicity involving the plantar aspect of the forefoot centered at the base of the fourth digit correlating with the CT abnormality, consistent with inflammation/infection and necrosis. No significant drainable fluid collection. Note that non-drainable necrosis and abscess can have the same appearance by CT. Foot X-Ray 07/10/24 19:35 IMPRESSION: As above. Ankle Brachial Index 07/10/24 20:09 IMPRESSION: Markedly diminished toe brachial index bilaterally. Normal MONIKA bilaterally Labs Labs: Laboratory Results - last 24 hr 07/13/24 07/13/24 07/14/24 17:08 22:15 05:57 WBC 9.0 RBC 3.30 L Hgb 9.9 L Hct 31.4 L MCV 95.2 MCH 30.0 MCHC 31.5 L RDW 14.7 H Plt Count 357 MPV 8.9 Immature Gran % (Auto) 1.8 H Neut % (Auto) 58.9 Lymph % (Auto) 22.1 Greer % (Auto) 13.3 H Eos % (Auto) 3.1 Baso % (Auto) 0.8 Lymph # (Auto) 2.00 Greer # (Auto) 1.2 H Eos # (Auto) 0.3 Baso # (Auto) 0.1 Abs Immat Gran (auto) 0.16 H Absolute Neuts (auto) 5.3 Absolute Nucleated RBC 0.000 Nucleated RBC % 0.0 Sodium 139 Potassium 4.4 Chloride 109 H Carbon Dioxide 27 Anion Gap 3 L BUN 8 Creatinine 0.49 L Estim Creat Clear Calc 95 Estimated GFR > 60 Glucose 113 H POC Capillary Glucose 137 H 129 H Calcium 8.3 L Magnesium 2.4 H Total Bilirubin 0.4 AST 54 H ALT 33 Alkaline Phosphatase 88 Total Protein 6.0 L Albumin 2.8 L 07/14/24 07/14/24 08:50 12:43 WBC RBC Hgb Hct MCV MCH MCHC RDW Plt Count MPV Immature Gran % (Auto) Neut % (Auto) Lymph % (Auto) Greer % (Auto) Eos % (Auto) Baso % (Auto) Lymph # (Auto) Greer # (Auto) Eos # (Auto) Baso # (Auto) Abs Immat Gran (auto) Absolute Neuts (auto) Absolute Nucleated RBC Nucleated RBC % Sodium Potassium Chloride Carbon Dioxide Anion Gap BUN Creatinine Estim Creat Clear Calc Estimated GFR Glucose POC Capillary Glucose 101 98 Calcium Magnesium Total Bilirubin AST ALT Alkaline Phosphatase Total Protein Albumin
--- NOTE | 2024-07-14 14:46 | PCOTNOTE ---
Attempted OT evaluation. Per pt. and RN pt. is independent around her room without a device. Pt. states she does not need or want therapy at this time. Orders will be discharged.
--- NOTE | 2024-07-14 15:18 | PCPTNOTE ---
07/14/2024: RN reports that pt is indep in the room, patient states does not need therapy. RR,PT
[2024-07-14] MEDS: HYDROcodone/acetaminophen (*CRX) 5-325 MG TABLET 1 TAB PO (16:09)
[2024-07-14 17:52] LABS: Glucose Point of Care 121 mg/dl (65-105)
[2024-07-14] MEDS: ATORVASTATIN 40 MG TABLET PO (22:12)
[2024-07-14] MEDS: ALPRAZolam (*CRX) 0.5 MG TABLET 1 MG PO (22:12)
[2024-07-14] MEDS: traZODone HCL 50 MG TABLET 100 MG PO (22:12)
[2024-07-14] MEDS: atenoloL 50 MG TABLET PO (22:13)
[2024-07-15 02:21] LABS: Glucose Point of Care 78 mg/dl (65-105)
[2024-07-15 02:21] LABS: Glucose Point of Care 109 mg/dl (65-105)
[2024-07-15 05:50] LABS: Basophils Absolute Auto 0.1 K/mm3 (0.0-0.1); Basophils Percent Auto 0.7 % (0.2-1.2); Eosinophils Absolute Auto 0.3 K/mm3 (0-0.3); Hematocrit 32.2 % (37.0-47.0); Hemoglobin 10.3 g/dL (12.0-15.0); Immature Granulocyte Absolute 0.14 K/mm3 (0.00-0.031); Immature Granulocyte Percent A 1.4 % (0-0.5); Lymphocytes Absolute Auto 2.49 K/mm3 (0.9-3.2); Lymphocytes Percent Auto 24.1 % (18.3-44.2); Mean Corpuscular Hemoglobin 29.9 pg (26-34); Mean Corpuscular Volume 93.3 fl (80-100); Mean Platelet Volume 8.7 fl (7.4-10.4); Monocytes Absolute Auto 0.9 K/mm3 (0.1-0.6); Monocytes Percent Auto 8.3 % (2.6-8.5); Neutrophils Absolute Auto 6.5 K/mm3 (1.3-6.7); Neutrophils Percent Auto 62.5 % (45.5-73.1); Platelet Count Result 386 k/mm3 (150-375); Red Blood Count 3.45 M/mm3 (4.2-5.4); Red Cell Distribution Width 14.7 % (11.5-14.5); White Blood Count 10.3 K/mm3 (4.5-10.0)
[2024-07-15 06:06] VITALS: BP 112/50; PULSE 63; RESP 16; TEMP 36.9; O2SAT 93
[2024-07-15 06:09] LABS: Alanine Aminotransferase 28 U/L (6-35); Albumin Level 2.9 g/dL (3.5-5.1); Alkaline Phosphatase 99 U/L (38-126); Anion Gap 5 mmol/L (4-12); Aspartate Amino Transferase 33 U/L (14-36); Bilirubin,Total 0.5 mg/dL (0.2-1.3); Blood Urea Nitrogen 7 mg/dL (7-17); Calcium 8.4 mg/dL (8.4-10.2); Carbon Dioxide 26 mmol/L (22-30); Chloride 108 mmol/L (98-107); Estimated CRCL calculation 94 ml/min; Estimated Glomerular Filt Rate > 60; Glucose 108 mg/dL (65-110); Magnesium 2.3 mg/dL (1.6-2.3); Potassium 4.4 mmol/L (3.4-5.0); Sodium 139 mmol/L (137-145)
[2024-07-15] MEDS: metroNIDAZOLE 500 MG TABLET PO ×3 (06:35→20:33)
--- OUTSIDE RECORDS SUMMARY | 2024-07-15 08:01 | XMS_ITS | Data Portability ---
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 She is here for a 5 year for routine x-ray surveillance of both of her knees in both of her hips. In 2010 the right knee was done. In 2011 right hip and left knee were done.in 2014 left hip was Done. All of her joints are doing very well. she is having no complaints or problems with any of her joint replacements. She is happy she had a mole done. Physical exam: 67-year-old female she is 5 ft 4 186 lb. She has lost 60 lb in the last year. She walks very well today without limp or assistance. She has no effusion in either knee. Both knees have range of motion from 0-135 degrees. She has excellent stability in both flexion and extension in both knees. She has no pain with range of motion of either hips. No increased swelling in either lower extremity. 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 No evidence of loosening or polyethylene wear on any of the x-rays today. We will plan on seeing her back in another 5 years for routine x-ray surveillance or sooner if she has problems. Long-term risk of infection was discussed. [email or web address] Not available 05/25/2023 11:54:33 Plan of Treatment Reminders Order Date Submit Date Provider Last Modified By Organization Details Last Modified Time Details Appointments None record ed. Lab None record ed. Referral None record ed. Procedures None record ed. Surgeries None record ed. Imaging XR, hip + pelvis , bilate ral, 3 or 4 view 023 05/25/20 [email or web address] [facility] [place], [address], [place], [address], 3 10:41:15 XR, knee 023 05/25/20 23 [email or web address] [facility] [place], [address], [place], [address], 3 10:41:15 Medication Orders None record ed. Patient TargetsNo targets recorded. Patient InstructionsNo instructions recorded. Reason for Referral None Reported. Results Created Date Observation Date Name Description Value Unit Range Abnormal Flag Note LastModifiedBy Organization Detail LastModifiedTime 05/25/20 XR, knee No observ ation record ed. [email or web address] [facility] [place] [address], [place], [address], 05/25/2023 11:52:15 05/25/20 XR, hip + pelvi s, bilat eral, 3 or 4 view No observ ation record ed. [email or web address] [facility] [place] [address], [place], [address], 05/25/2023 11:51:48 Result Notes None recorded. Problems Name Problem SNOMED Code Status Onset Date Resolution Date Notes Provider Name and Address Organization Details Recorded Time Body mass index 30+ - obesity 484568355 Active Not Available [facility] 3 14:09:11 Osteoarthriti s of hip 437348865 Active Not Available [facility] 3 14:09:11 Follow-up orthopedic assessment 461856687 Active Not Available [facility] 3 14:09:11 Pain in limb 29353445 Active Not Available [facility] 3 14:09:11 Problem Notes None recorded. Procedures Surgical History None recorded. Imaging Results Imaging Date Name Status LastModified by Organiz ation Details LastModified Time 05/25/2023 XR, knee completed [email or web address] [facility] [place] [address], [address], 05/25/2023 11:52:15 05/25/2023 XR, hip + pelvis, bilateral, 3 or 4 view completed [email or web address] [facility] [address], [address], 05/25/2023 11:51:48 Procedure Notes None recorded. Medical Equipment None Reported. Allergies No known drug allergies Medications Name Sig Start Date Stop Date Status Note LastModified by Organization Details LastModified Time celecoxib 200 mg capsule TK 1 C PO D 02/19 completed Not Available Not Available Not Available amoxicillin 500 mg capsule 02/19 completed Not Available Not Available Not Available furosemide 40 mg tablet 05/25 completed Not Available Not Available Not Available atorvastati n 40 mg tablet active Not Available Not Available Not Available metformin 500 mg tablet TK 1 T PO BID active Not Available Not Available No t Available prednisone 10 mg tablet 02/19 completed Not Available Not Available Not Available doxycycline hyclate 100 mg capsule TAKE 1 CAPSULE BY MOUTH EVERY 12 HOURS UNTIL ALL TAKEN active Not Available Not Available No t Available atorvastati n 20 mg tablet 02/19 completed Not Available Not Available Not Available ibuprofen 800 mg tablet 02/19 completed Not Available Not Available Not Available alprazolam 1 mg tablet TAKE 1 TABLET BY MOUTH TWICE DAILY active Not Available Not Available No t Available tizanidine 4 mg tablet TK 1 T PO TID PRN 02/19 completed Not Available Not Available Not Available meloxicam 15 mg tablet TK 1 T PO D 02/19 completed Not Available Not Available Not Available atenolol 25 mg tablet active Not Available Not Available No t Available topiramate 25 mg tablet TK 1 T PO BID 02/19 completed Not Available Not Available Not Available potassium chloride ER 10 mEq tablet,exte nded release active Not Available Not Available Not Available phentermine 37.5 mg tablet TK 1 T PO QD 05/25 completed Not Available Not Available Not Available ciprofloxac in 500 mg tablet TK 1 T PO BID 02/19 completed Not Available Not Available Not Available sulfamethox azole 800 mg-trimetho prim 160 mg tablet TAKE 1 TABLET BY MOUTH EVERY 12 HOURS UTNIL GONE active Not Available Not Available No t Available peg-electro lyte solution 420 gram oral solution 02/19 completed Not Available Not Available Not Available oxycodone-a cetaminophe n 5 mg-325 mg tablet TK 1 TO 2 TS PO Q 4 H PRN P 02/19 completed Not Available Not Available Not Available potassium chloride ER 20 mEq tablet,exte nded release(par t/cryst) active Not Available Not Available Not Available famotidine 20 mg tablet active Not Available Not Available Not Available gabapentin 800 mg tablet TK 1 T PO Q 8 HOURS 02/19 completed Not Available Not Available Not Available trazodone 100 mg tablet active Not Available Not Available Not Available hydrocodone 7.5 mg-acetamin ophen 325 mg tablet 02/19 completed Not Available Not Available Not Available cephalexin 500 mg capsule 05/25 completed Not Available Not Available Not Available trazodone 150 mg tablet 02/19 completed Not Available Not Available Not Available lisinopril 10 mg tablet active Not Available Not Available Not Available promethazin e 25 mg tablet 02/19 completed Not Available Not Available Not Available triamterene 37.5 mg-hydrochl orothiazide 25 mg tablet TK 1 T PO ONCE D active Not Available Not Available No t Available montelukast 10 mg tablet 02/19 completed Not Available Not Available Not Available gabapentin 100 mg capsule TK 2 CS PO Q 8 H 02/19 completed Not Available Not Available Not Available lisinopril 10 mg-hydrochl orothiazide 12.5 mg tablet active Not Available Not Available Not Available zolpidem 10 mg tablet 02/19 completed Not Available Not Available Not Available phentermine 37.5 mg capsule active Not Available Not Available Not Available amoxicillin 500 mg-potassiu m clavulanate 125 mg tablet TAKE 1 TABLET BY MOUTH EVERY 8 HOURS 05/25 completed Not Available Not Available Not Available oxycodone 5 mg tablet TAKE 1 TABLET BY MOUTH EVERY 6 HOURS NEEDED 05/25 completed Not Available Not Available Not Available enoxaparin 40 mg/0.4 mL subcutaneou s syringe INJ 0.4ML UNDER THE SKIN ONCE D FOR 28 DAYS 02/19 completed Not Available Not Available Not Available nitrofurant oin monohydrate /macrocryst als 100 mg capsule 02/19 completed Not Available Not Available Not Available duloxetine 60 mg capsule,del ayed release active Not Available Not Available Not Available atomoxetine 80 mg capsule 05/25 completed Not Available Not Available Not Available ProAir HFA 90 mcg/actuati on aerosol inhaler active Not Available Not Available Not Available OneTouch Delica Lancets 33 gauge 02/19 completed Not Available Not Available Not Available Trulicity 1.5 mg/0.5 mL subcutaneou s pen injector ADMINISTE R 1.5 MG UNDER THE SKIN WEEKLY active Not Available Not Available No t Available Trulicity 0.75 mg/0.5 mL subcutaneou s pen injector active Not Available Not Available Not Available OneTouch Ultra Blue Test Strip 02/19 completed Not Available Not Available Not Available Vitals Date Recorded Body height Body mass index (BMI) Body weight Provider Name and Address Organization Details Last Updated DateTime 05/25/2023 162.56 cm 31.9 kg/m2 26308.18 g GENNA Felix Schedulicity 05/25/2023 11:10:12 Social History Question Answer Notes LastModified by Organizat ion Details LastModified Time Tobacco Smoking Status Never Smoker Nayana GENNA Anthony null, Schedulicity 05/25/2023 11:03:10 What Is Your Level Of Alcohol Consumption? None [email or web address] Information not available 05/25/2023 Sex: Unknown Functional Status None recorded. Mental Status None recorded. Family History Relationship Description Onset Age of this Age Resolved Age Notes LastModified by Organization Details LastModified Time Mother Hypertensive disorder [email or web address] Not available 2022 11:02:47 Mother Diabetes mellitus [email or web address] Not available 2022 11:02:57 Medical History Condition Response DIABETES, TYPE Y ARTHRITIS Y Gynecological HistoryNo gynecological history recorded. Obstetrics History GPAL:G 0 P 0 0 0 0 Past Encounters Encounter ID Performer Location Encounter Start Date Encounter Closed Date Diagnosis/Indication Diagnosis SNOMED-CT Code Diagnosis ICD10 Code Diagnosis Note [id number] DEBORAH Boggs [facility] [place] [address] [place] [address] 05/25/2023 10:42:22 05/25/2023 11:57:12 History of bilateral total knee replacement 0720243359 074706 Z96.653 History of total hip arthroplasty 2514815185 06 Z96.641 Z96.642 Health Concerns Section Related Observation LastModified by Organization Detai ls LastModified Time None Recorded Concern Status LastModified by Organization Details LastModified Time None Recorded Advance Directives Directive None Recorded Payers Encounter Date Sequence Insurance Name Policy Number Policy [place] Covered Member ID [place] Member ID Guarantor Name 05/25/2023 1 [employer] - [employer] - SECURE [employer] - MEDICARE COMPLETE PLAN 2 (MEDICARE REPLACEMENT HMO) [id number] Kaitlin Hollis [id number] Kaitlin Hollis OBGyn Episode No OBEpisode recorded.
--- OUTSIDE RECORDS SUMMARY | 2024-07-15 08:01 | XMS_ITS | Continuity of Care Document ---
Author Organization [facility] Address [address] [place] [address] [address] [facility] [address] [place] [address] Phone Care Team Providers Care Distributor Cleaner Name Role Phone Tere Boyer Unavailable Unavailable Advance Directives Directive Yes / No Effective Date File Name No Information Encounters Encounter Description Practice Location Reason(s) For Visit Diagnoses Date Provider Providers Copied on Encounter [facility], [address], [place], [place], [id number], [place] tel:[phone] [facility] (formerly [facility]) No Information Dec-2 1-200 0 Rosalind Carranza. [address] , [address], [place], [address], [place]. tel:[phone] Family History Family Member Type Diagnosis Age At Onset No Information Payers Payer name Insurance type Covered green party ID Authoriza tion(s) No Information Social History Type Description Quantity Date Captured Comments Sex Female Smoking Status No Information Chief Complaint And Reason For Visit No Information Reason For Referral Reason For Referral No Information History Of Present Illness Encounter Date Complaint History Of Prese nt Illness No Information Functional Status Date Functional Assessmen t No Information Instructions Date Instruction Additional Infor mation No Information Assessments Type Assessment Date No Information Patient Care Teams Name Effective Dates (start - stop) Status Members No Information
--- NOTE | 2024-07-15 08:24 | P.PNIM_ITS ---
Progress Note: A&P Assessment and Plan (1) Osteomyelitis of fourth toe of right foot: Code(s): M86.9 - Osteomyelitis, unspecified Status: Acute Assessment and Plan: * 07/13 amputation * 07/14 continue postop cefepime, flagyl * cultrue with MSSA. oral antibiotics at discharge * after dressing change tomorrow per Dr. Mcdonnell (2) Ulcer of foot due to type 2 diabetes mellitus: Code(s): E11.621 - Type 2 diabetes mellitus with foot ulcer; L97.509 - Non-pressure chronic ulcer of other part of unspecified foot with unspecified severity Status: Acute Assessment and Plan: * S/p debridement 07/13 * Continue wound care (3) Hypokalemia: Code(s): E87.6 - Hypokalemia Status: Acute Assessment and Plan: replace and monitor (4) CHRISTIANA (acute kidney injury): Code(s): N17.9 - Acute kidney failure, unspecified Status: Acute Assessment and Plan: * Continue to monitor. * Cr/BUN today 1.0/19. * Receiving IVF. RESOLVED (5) Type 2 diabetes mellitus: Qualifiers: Diabetes mellitus complication detail: with polyneuropathy Diabetes mellitus complication status: with neurologic complications Diabetes mellitus technician terminal and repeater insulin use: without half-way use Qualified Code(s): E11.42 - Type 2 diabetes mellitus with diabetic polyneuropathy Code(s): E11.9 - Type 2 diabetes mellitus without complications Status: Acute Assessment and Plan: * A1C 5.2 * Continue SSI * 05/04 FBS 113 (6) Hypertension: Code(s): I10 - Essential (primary) hypertension Status: Acute Subjective Date/time seen: 07/15/24 08:24 Interval history: no new complaints. wants to go home. pain intermittent but well controlled. Review of Systems Review of Systems: All systems reviewed & are unremarkable except as noted in HPI and below Exam Narrative: HEENT: PERRL, sclerae nonicteric, pharyngeal mucosa pink and intact NECK: No JVD CHEST: Clear to auscultation. Normal effort. HEART: NL S1/S2, regular, no murmur ABDOMEN: BS+, soft, nontender, no mass, no bruits EXTREMITIES: No cyanosis, edema, or clubbing or left. RLE with postop dressing in place. NEUROLOGIC: CN intact and symmetric to inspection. MUSCULOSKELETAL: Tone and strength symmetric. PSYCH: Alert. Oriented to person, place, and time. Objective Data Vital Signs Vital Signs: Vital Signs - 24 hr 07/14/24 09:35 07/14/24 09:54 07/14/24 14:26 Temperature 97.4 F L 97.5 F L Pulse Rate 66 69 Respiratory Rate 18 16 Blood Pressure 135/55 L 128/55 L Pulse Oximetry 96 96 95 Oxygen Delivery Room Air 07/14/24 20:00 07/14/24 22:00 07/14/24 22:13 Temperature 98.0 F Pulse Rate 71 76 Respiratory Rate 18 Blood Pressure 142/62 H Pulse Oximetry 96 Oxygen Delivery Room Air 07/15/24 06:06 Temperature 98.4 F Pulse Rate 63 Respiratory Rate 16 Blood Pressure 112/50 L Pulse Oximetry 93 Oxygen Delivery Intake/Output Intake/Output: Intake & Output 07/12/24 07/13/24 07/14/24 07/15/24 23:59 23:59 23:59 23:59 Intake Total 2330 2940 1750 600 Balance 2330 2940 1750 600 Meds/Results Medications: Active Medications Generic Name Dose Route Start Last Admin Trade Name Freq PRN Reason Stop Dose Admin Acetaminophen 1,000 mg 07/08/24 22:18 07/13/24 16:16 Acetaminophen 500 Mg Tablet PO 1,000 mg Q6H PRN Administration Mild Pain (1-3) or Fever Hydrocodone Bitart/Acetaminophen 1 tab 07/13/24 20:33 07/14/24 16:09 Hydrocodone/Acetaminophen (*Crx) 5-325 Mg Tablet PO 1 tab Q4H PRN Administration Pain Rated 4-6 Alprazolam 1 mg 07/09/24 03:06 07/14/24 22:12 Alprazolam (*Crx) 0.5 Mg Tablet PO 1 mg BID PRN Administration Anxiety Atenolol 50 mg 07/10/24 21:00 07/14/24 22:13 Atenolol 50 Mg Tablet PO 50 mg QHS TIFF Administration Atorvastatin Calcium 40 mg 07/09/24 21:00 07/14/24 22:12 Atorvastatin 40 Mg Tablet PO 40 mg HS TIFF Administration Dextrose 12.5 gm 07/08/24 22:18 Dextrose 50% 25 Gm/50 Ml Syringe IV PUSH PRN PRN Hypoglycemia Protocol Duloxetine HCl 60 mg 07/09/24 09:00 07/14/24 09:37 Duloxetine Hcl 60 Mg Capsule.Dr PO 60 mg DAILY TIFF Administration Enoxaparin Sodium 40 mg 07/09/24 09:00 07/14/24 09:37 Enoxaparin 40 Mg/0.4 Ml Syringe SUB-Q 40 mg DAILY TIFF Administration Glucagon 1 mg 07/08/24 22:18 Glucagon For Inj 1 Mg Vial IM PRN PRN Hypoglycemia Protocol Glucose 15 gm 07/08/24 22:18 Glucose Oral Gel 15 Gm Of Glucse In 37.5 Gm Tube PO PRN PRN Hypoglycemia Protocol Dextrose 1,000 mls @ 100 mls/hr 07/08/24 22:18 Dextrose 5% 1,000 Ml IVPB PRN PRN Hypoglycemia Protocol Cefepime HCl 2 gm in 50 mls @ 100 mls/hr 07/10/24 21:00 07/14/24 22:47 Maxipime 2 Gm/Ns 50 Ml IVPB Infused Q12HR TIFF Infusion Insulin Aspart 2 - 5 units 07/10/24 08:00 07/14/24 18:36 Insulin Aspart (*Bkc) 100 Units/Ml SUB-Q Not Given TIDWM TIFF Protocol Metronidazole 500 mg 07/10/24 15:00 07/15/24 06:35 Metronidazole 500 Mg Tablet PO 500 mg Q8HR TIFF Administration Ondansetron HCl 4 mg 07/08/24 22:18 Ondansetron Inj 4 Mg/2 Ml Vial IV PUSH Q4H PRN Nausea Potassium Chloride 20 meq 07/10/24 09:00 07/14/24 09:37 Potassium Chloride 20 Meq Er Tablet PO 20 meq DAILY TIFF Administration Trazodone HCl 100 mg 07/09/24 21:00 07/14/24 22:12 Trazodone Hcl 50 Mg Tablet PO 100 mg HS TIFF Administration Radiology Results: ITS Impressions Foot CT 07/08/24 19:41 IMPRESSION: Tract of fluid attenuation within the area of clinical concern, as detailed above. The entirety of this collection is likely visible with ultrasound, if needed for drainage. Soft Tissue Ultrasound 07/09/24 20:25 IMPRESSION: 1. Soft tissue swelling with heterogeneous echogenicity involving the plantar aspect of the forefoot centered at the base of the fourth digit correlating with the CT abnormality, consistent with inflammation/infection and necrosis. No significant drainable fluid collection. Note that non-drainable necrosis and abscess can have the same appearance by CT. Foot X-Ray 07/10/24 19:35 IMPRESSION: As above. Ankle Brachial Index 07/10/24 20:09 IMPRESSION: Markedly diminished toe brachial index bilaterally. Normal MONIKA bilaterally Labs Labs: Laboratory Results - last 24 hr 07/14/24 07/14/24 07/14/24 08:50 12:43 17:27 WBC RBC Hgb Hct MCV MCH MCHC RDW Plt Count MPV Immature Gran % (Auto) Neut % (Auto) Lymph % (Auto) [place] % (Auto) Eos % (Auto) Baso % (Auto) Lymph # (Auto) [place] # (Auto) Eos # (Auto) Baso # (Auto) Abs Immat Gran (auto) Absolute Neuts (auto) Absolute Nucleated RBC Nucleated RBC % Sodium Potassium Chloride Carbon Dioxide Anion Gap BUN Creatinine Estim Creat Clear Calc Estimated GFR Glucose POC Capillary Glucose 101 98 121 H Calcium Magnesium Total Bilirubin AST ALT Alkaline Phosphatase Total Protein Albumin 07/14/24 07/14/24 07/15/24 21:40 22:34 05:40 WBC 10.3 H RBC 3.45 L Hgb 10.3 L Hct 32.2 L MCV 93.3 MCH 29.9 MCHC 32.0 RDW 14.7 H Plt Count 386 H MPV 8.7 Immature Gran % (Auto) 1.4 H Neut % (Auto) 62.5 Lymph % (Auto) 24.1 [place] % (Auto) 8.3 Eos % (Auto) 3.0 Baso % (Auto) 0.7 Lymph # (Auto) 2.49 [place] # (Auto) 0.9 H Eos # (Auto) 0.3 Baso # (Auto) 0.1 Abs Immat Gran (auto) 0.14 H Absolute Neuts (auto) 6.5 Absolute Nucleated RBC 0.000 Nucleated RBC % 0.0 Sodium 139 Potassium 4.4 Chloride 108 H Carbon Dioxide 26 Anion Gap 5 BUN 7 Creatinine 0.50 L Estim Creat Clear Calc 94 Estimated GFR > 60 Glucose 108 POC Capillary Glucose 78 109 H Calcium 8.4 Magnesium 2.3 Total Bilirubin 0.5 AST 33 ALT 28 Alkaline Phosphatase 99 Total Protein 6.0 L Albumin 2.9 L
[2024-07-15 08:47] LABS: Glucose Point of Care 103 mg/dl (65-105)
--- OUTSIDE RECORDS SUMMARY | 2024-07-15 08:48 | XMS_ITS | Continuity of Care Document ---
Author Organization [facility] Address [id number] [place] [address] Exec utive [facility] [address] [place] [address] Phone Care Team Providers Care Police Worker Name Role Phone Tere Boyer Unavailable Unavailable Advance Directives Directive Yes / No Effective Date File Name No Information Encounters Encounter Description Practice Location Reason(s) For Visit Diagnoses Date Provider Providers Copied on Encounter [facility], [address], [place], [place], [id number], [place] tel:[phone] [facility] No Information Dec-2 1-200 0 Rosalind Carranza. [address] , [address], [place], [address], [place]. tel:[phone] Family History Family Member Type Diagnosis Age At Onset No Information Payers Payer name Insurance type Covered libertarian ID Authoriza tion(s) No Information Social History [...]
[2024-07-15] MEDS: DULoxetine HCL 60 MG CAPSULE.DR PO (09:14)
[2024-07-15] MEDS: POTASSIUM CHLORIDE 20 MEQ ER TABLET PO (09:14)
[2024-07-15] MEDS: CEFEPIME 2 GM/NS 50 ML 2 GM/50 ML BAG IVPB ×2 (09:14→20:34)
[2024-07-15] MEDS: ENOXAPARIN 40 MG/0.4 ML SYRINGE SUB-Q (09:15)
[2024-07-15 12:21] LABS: Glucose Point of Care 89 mg/dl (65-105)
--- NOTE | 2024-07-15 13:22 | PM.PNORT ---
Progress Note: A&P Assessment and Plan (1) Diabetic foot infection: Code(s): E11.628 - Type 2 diabetes mellitus with other skin complications; L08.9 - Local infection of the skin and subcutaneous tissue, unspecified Status: Acute Assessment and Plan: POD #2 rt foot 4th toe amp and debridement. MSSA Dressing changed today. Dry gauze dressings daily. IV abx tonight then switch to oral. PT/OT. Post op shoe. Home tomorrow Subjective Subjective Date/Time Seen: 07/15/24 13:22 Post Op day: 2 Principal diagnosis: RT foot osteo, dfu Interval history: Patient resting comfortably. Awake and alert. Oriented to person, place and time. Complains of minimal pain right foot. Exam Const: General: cooperative and average body habitus Nutritional Appearance: average body habitus Orientation/consciousness: patient oriented x3 Limitations: no limitations Resp: Effort & Inspection: normal respiratory effort and able to speak in complete sentences Cardio: Jugular venous distension: no JVD Extrem: Right lower extremity: foot Details: tenderness (mild, diffuse ), abnormal ROM of toe (3rd ray amp, severe hallux valgus), warmth (4th toe, forefoot swelling) Location: of the plantar foot, crepitus, vascular exam Details: dorsalis pedis pulse present (faintly palpable) and motor-sensory exam Details: light-touch abnormal Other: Right foot dressing changed. Incision clean and dry. Foot with less erythema dorsum. Psych: Mental Status: mental status grossly normal Objective Data Vital Signs Vital Signs: Vital Signs - 24 hr 07/14/24 14:26 07/14/24 20:00 07/14/24 22:00 Temperature 97.5 F L 98.0 F Pulse Rate 69 71 Respiratory Rate 16 18 Blood Pressure 128/55 L 142/62 H Pulse Oximetry 95 96 Oxygen Delivery Room Air 07/14/24 22:13 07/15/24 06:06 Temperature 98.4 F Pulse Rate 76 63 Respiratory Rate 16 Blood Pressure 112/50 L Pulse Oximetry 93 Oxygen Delivery Intake/Output Intake/Output: Intake & Output 07/12/24 07/13/24 07/14/24 07/15/24 23:59 23:59 23:59 23:59 Intake Total 2330 2940 1750 720 Balance 2330 2940 1750 720 Meds/Results Medications: Active Medications Generic Name Dose Route Start Last Admin Trade Name Omariq PRN Reason Stop Dose Admin Acetaminophen 1,000 mg 07/08/24 22:18 07/13/24 16:16 Acetaminophen 500 Mg Tablet PO 1,000 mg Q6H PRN Administration Mild Pain (1-3) or Fever Hydrocodone Bitart/Acetaminophen 1 tab 07/13/24 20:33 07/14/24 16:09 Hydrocodone/Acetaminophen (*Crx) 5-325 Mg Tablet PO 1 tab Q4H PRN Administration Pain Rated 4-6 Alprazolam 1 mg 07/09/24 03:06 07/14/24 22:12 Alprazolam (*Crx) 0.5 Mg Tablet PO 1 mg BID PRN Administration Anxiety Atenolol 50 mg 07/10/24 21:00 07/14/24 22:13 Atenolol 50 Mg Tablet PO 50 mg QHS TIFF Administration Atorvastatin Calcium 40 mg 07/09/24 21:00 07/14/24 22:12 Atorvastatin 40 Mg Tablet PO 40 mg HS TIFF Administration Dextrose 12.5 gm 07/08/24 22:18 Dextrose 50% 25 Gm/50 Ml Syringe IV PUSH PRN PRN Hypoglycemia Protocol Duloxetine HCl 60 mg 07/09/24 09:00 07/15/24 09:14 Duloxetine Hcl 60 Mg Capsule.Dr PO 60 mg DAILY TIFF Administration Enoxaparin Sodium 40 mg 07/09/24 09:00 07/15/24 09:15 Enoxaparin 40 Mg/0.4 Ml Syringe SUB-Q 40 mg DAILY TIFF Administration Glucagon 1 mg 07/08/24 22:18 Glucagon For Inj 1 Mg Vial IM PRN PRN Hypoglycemia Protocol Glucose 15 gm 07/08/24 22:18 Glucose Oral Gel 15 Gm Of Glucse In 37.5 Gm Tube PO PRN PRN Hypoglycemia Protocol Dextrose 1,000 mls @ 100 mls/hr 07/08/24 22:18 Dextrose 5% 1,000 Ml IVPB PRN PRN Hypoglycemia Protocol Cefepime HCl 2 gm in 50 mls @ 100 mls/hr 07/10/24 21:00 07/15/24 09:14 Maxipime 2 Gm/Ns 50 Ml IVPB 100 mls/hr Q12HR TIFF Administration Insulin Aspart 2 - 5 units 07/10/24 08:00 07/15/24 12:57 Insulin Aspart (*Bkc) 100 Units/Ml SUB-Q Not Given TIDWM [facility] Protocol Metronidazole 500 mg 07/10/24 15:00 07/15/24 06:35 Metronidazole 500 Mg Tablet PO 500 mg Q8HR TIFF Administration Ondansetron HCl 4 mg 07/08/24 22:18 Ondansetron Inj 4 Mg/2 Ml Vial IV PUSH Q4H PRN Nausea Potassium Chloride 20 meq 07/10/24 09:00 07/15/24 09:14 Potassium Chloride 20 Meq Er Tablet PO 20 meq DAILY TIFF Administration Trazodone HCl 100 mg 07/09/24 21:00 07/14/24 22:12 Trazodone Hcl 50 Mg Tablet PO 100 mg HS TIFF Administration Radiology Results: ITS Impressions Foot CT 07/08/24 19:41 IMPRESSION: Tract of fluid attenuation within the area of clinical concern, as detailed above. The entirety of this collection is likely visible with ultrasound, if needed for drainage. Soft Tissue Ultrasound 07/09/24 20:25 IMPRESSION: 1. Soft tissue swelling with heterogeneous echogenicity involving the plantar aspect of the forefoot centered at the base of the fourth digit correlating with the CT abnormality, consistent with inflammation/infection and necrosis. No significant drainable fluid collection. Note that non-drainable necrosis and abscess can have the same appearance by CT. Foot X-Ray 07/10/24 19:35 IMPRESSION: As above. Ankle Brachial Index 07/10/24 20:09 IMPRESSION: Markedly diminished toe brachial index bilaterally. Normal MONIKA bilaterally Labs Labs: Laboratory Results - last 24 hr 07/14/24 07/14/24 07/14/24 17:27 21:40 22:34 WBC RBC Hgb Hct MCV MCH MCHC RDW Plt Count MPV Immature Gran % (Auto) Neut % (Auto) Lymph % (Auto) [place] % (Auto) Eos % (Auto) Baso % (Auto) Lymph # (Auto) [place] # (Auto) Eos # (Auto) Baso # (Auto) Abs Immat Gran (auto) Absolute Neuts (auto) Absolute Nucleated RBC Nucleated RBC % Sodium Potassium Chloride Carbon Dioxide Anion Gap BUN Creatinine Estim Creat Clear Calc Estimated GFR Glucose POC Capillary Glucose 121 H 78 109 H Calcium Magnesium Total Bilirubin AST ALT Alkaline Phosphatase Total Protein Albumin 07/15/24 07/15/24 07/15/24 05:40 08:42 12:17 WBC 10.3 H RBC 3.45 L Hgb 10.3 L Hct 32.2 L MCV 93.3 MCH 29.9 MCHC 32.0 RDW 14.7 H Plt Count 386 H MPV 8.7 Immature Gran % (Auto) 1.4 H Neut % (Auto) 62.5 Lymph % (Auto) 24.1 [place] % (Auto) 8.3 Eos % (Auto) 3.0 Baso % (Auto) 0.7 Lymph # (Auto) 2.49 [place] # (Auto) 0.9 H Eos # (Auto) 0.3 Baso # (Auto) 0.1 Abs Immat Gran (auto) 0.14 H Absolute Neuts (auto) 6.5 Absolute Nucleated RBC 0.000 Nucleated RBC % 0.0 Sodium 139 Potassium 4.4 Chloride 108 H Carbon Dioxide 26 Anion Gap 5 BUN 7 Creatinine 0.50 L Estim Creat Clear Calc 94 Estimated GFR > 60 Glucose 108 POC Capillary Glucose 103 89 Calcium 8.4 Magnesium 2.3 Total Bilirubin 0.5 AST 33 ALT 28 Alkaline Phosphatase 99 Total Protein 6.0 L Albumin 2.9 L
[2024-07-15 14:32] VITALS: BP 135/62; PULSE 72; RESP 18; TEMP 36.6; O2SAT 97
--- OUTSIDE RECORDS SUMMARY | 2024-07-15 16:28 | XMS_ITS | Continuity of Care Document ---
Author Organization [facility] Address [address] [place] [address] Exec utive [facility] [address] [place] [address] Phone Care Team Providers Care Pattern Maker Programer Name Role Phone Tere Boyer Unavailable Unavailable Advance Directives Directive Yes / No Effective Date File Name No Information Encounters Encounter Description Practice Location Reason(s) For Visit Diagnoses Date Provider Providers Copied on Encounter [facility], [address], [place], [place], [id number], [place] tel:[phone] [facility] [place] No Information Dec-2 1-200 0 Rosalind Carranza. [address] , [address], [place], [address], [place]. tel:[phone] Family History Family Member Type Diagnosis Age At Onset No Information Payers Payer name Insurance type Covered constitution party ID Authoriza tion(s) No Information Social [...]
[2024-07-15 17:03] LABS: Glucose Point of Care 116 mg/dl (65-105)
[2024-07-15] MEDS: traZODone HCL 50 MG TABLET 100 MG PO (20:33)
[2024-07-15] MEDS: ACETAMINOPHEN 500 MG TABLET 1000 MG PO (20:33)
[2024-07-15] MEDS: ATORVASTATIN 40 MG TABLET PO (20:34)
[2024-07-15] MEDS: atenoloL 50 MG TABLET PO (20:34)
[2024-07-15] MEDS: ALPRAZolam (*CRX) 0.5 MG TABLET 1 MG PO (21:27)
[2024-07-15 22:00] VITALS: BP 111/43; PULSE 56; RESP 20; TEMP 36.1; O2SAT 98
[2024-07-16 00:45] LABS: Glucose Point of Care 134 mg/dl (65-105)
[2024-07-16 06:00] VITALS: BP 131/70; PULSE 64; RESP 16; TEMP 36.2; O2SAT 95
[2024-07-16 06:06] LABS: Basophils Percent Auto 0.4 % (0.2-1.2); Eosinophils Absolute Auto 0.3 K/mm3 (0-0.3); Eosinophils Percent Auto 3.3 % (0-4.4); Hematocrit 32.8 % (37.0-47.0); Hemoglobin 10.6 g/dL (12.0-15.0); Immature Granulocyte Absolute 0.09 K/mm3 (0.00-0.031); Immature Granulocyte Percent A 1.1 % (0-0.5); Lymphocytes Absolute Auto 2.09 K/mm3 (0.9-3.2); Lymphocytes Percent Auto 26.2 % (18.3-44.2); Mean Corpuscular HGB Conc 32.3 g/dl (32-36); Mean Corpuscular Hemoglobin 30.5 pg (26-34); Mean Corpuscular Volume 94.3 fl (80-100); Mean Platelet Volume 8.7 fl (7.4-10.4); Monocytes Absolute Auto 0.7 K/mm3 (0.1-0.6); Monocytes Percent Auto 9.3 % (2.6-8.5); Neutrophils Absolute Auto 4.8 K/mm3 (1.3-6.7); Neutrophils Percent Auto 59.7 % (45.5-73.1); Platelet Count Result 358 k/mm3 (150-375); Red Blood Count 3.48 M/mm3 (4.2-5.4); Red Cell Distribution Width 14.6 % (11.5-14.5)
[2024-07-16 06:24] LABS: Alanine Aminotransferase 24 U/L (6-35); Albumin Level 2.8 g/dL (3.5-5.1); Alkaline Phosphatase 92 U/L (38-126); Anion Gap 3 mmol/L (4-12); Aspartate Amino Transferase 29 U/L (14-36); Bilirubin,Total 0.4 mg/dL (0.2-1.3); Blood Urea Nitrogen 6 mg/dL (7-17); Calcium 8.2 mg/dL (8.4-10.2); Carbon Dioxide 29 mmol/L (22-30); Chloride 108 mmol/L (98-107); Estimated CRCL calculation 90 ml/min; Estimated Glomerular Filt Rate > 60; Glucose 102 mg/dL (65-110); Magnesium 2.2 mg/dL (1.6-2.3); Potassium 4.3 mmol/L (3.4-5.0); Sodium 140 mmol/L (137-145)
[2024-07-16] MEDS: metroNIDAZOLE 500 MG TABLET PO ×2 (06:36→13:21)
[2024-07-16 08:51] LABS: Glucose Point of Care 97 mg/dl (65-105)
[2024-07-16] MEDS: CEFEPIME 2 GM/NS 50 ML 2 GM/50 ML BAG IVPB (09:01)
[2024-07-16] MEDS: DULoxetine HCL 60 MG CAPSULE.DR PO (09:02)
[2024-07-16] MEDS: ENOXAPARIN 40 MG/0.4 ML SYRINGE SUB-Q (09:02)
[2024-07-16] MEDS: POTASSIUM CHLORIDE 20 MEQ ER TABLET PO (09:02)
--- NOTE | 2024-07-16 09:55 | P.PNOP_ITS ---
Progress Note: A&P Assessment and Plan (1) Diabetic foot infection: Code(s): E11.628 - Type 2 diabetes mellitus with other skin complications; L08.9 - Local infection of the skin and subcutaneous tissue, unspecified Status: Acute Assessment and Plan: POD #3 rt foot 4th toe amp and debridement. MSSA Dressing changed today. Dry gauze dressings daily. Transitioned to oral antibiotics. PT/OT. Post op shoe. Dispo: Home once cleared by medicine team. Subjective Subjective Date/Time Seen: 07/16/24 09:55 Post Op day: 3 Principal diagnosis: RT foot osteo, dfu Interval history: Patient resting comfortably. Awake and alert. Oriented to person, place and time. Complains of minimal pain right foot. Hopeful for d/c home today. Review of Systems Review of Systems: All systems reviewed & are unremarkable except as noted in HPI and below Exam Const: General: cooperative and average body habitus Nutritional Appearance: average body habitus Orientation/consciousness: patient oriented x3 Limitations: no limitations Resp: Effort & Inspection: normal respiratory effort and able to speak in complete sentences Cardio: Jugular venous distension: no JVD Extrem: Right lower extremity: foot Details: tenderness (mild, diffuse ), abnormal ROM of toe (3rd ray amp, severe hallux valgus), warmth (4th toe, forefoot swelling) Location: of the plantar foot, crepitus, vascular exam Details: dorsalis pedis pulse present (faintly palpable) and motor-sensory exam Details: light-touch abnormal Other: Right foot dressing changed. Incision clean and dry. Foot with peeling skin/improved erythema. Psych: Mental Status: mental status grossly normal Objective Data Vital Signs Vital Signs: Vital Signs - 24 hr 07/15/24 14:32 07/15/24 20:00 07/15/24 22:00 Temperature 36.6 C 36.1 C L Pulse Rate 72 56 L Respiratory Rate 18 20 Blood Pressure 135/62 111/43 L Pulse Oximetry 97 98 Oxygen Delivery Room Air 07/16/24 06:00 Temperature 36.2 C L Pulse Rate 64 Respiratory Rate 16 Blood Pressure 131/70 Pulse Oximetry 95 Oxygen Delivery Intake/Output Intake/Output: Intake & Output 07/13/24 07/14/24 07/15/24 07/16/24 23:59 23:59 23:59 23:59 Intake Total 2940 1750 1360 600 Balance 2940 1750 1360 600 Meds/Results Medications: Active Medications Generic Name Dose Route Start Last Admin Trade Name Buddy PRN Reason Stop Dose Admin Acetaminophen 1,000 mg 07/08/24 22:18 07/15/24 20:33 Acetaminophen 500 Mg Tablet PO 1,000 mg Q6H PRN Administration Mild Pain (1-3) or Fever Hydrocodone Bitart/Acetaminophen 1 tab 07/13/24 20:33 07/14/24 16:09 Hydrocodone/Acetaminophen (*Crx) 5-325 Mg Tablet PO 1 tab Q4H PRN Administration Pain Rated 4-6 Alprazolam 1 mg 07/09/24 03:06 07/15/24 21:27 Alprazolam (*Crx) 0.5 Mg Tablet PO 1 mg BID PRN Administration Anxiety Atenolol 50 mg 07/10/24 21:00 07/15/24 20:34 Atenolol 50 Mg Tablet PO 50 mg QHS TIFF Administration Atorvastatin Calcium 40 mg 07/09/24 21:00 07/15/24 20:34 Atorvastatin 40 Mg Tablet PO 40 mg HS TIFF Administration Dextrose 12.5 gm 07/08/24 22:18 Dextrose 50% 25 Gm/50 Ml Syringe IV PUSH PRN PRN Hypoglycemia Protocol Duloxetine HCl 60 mg 07/09/24 09:00 07/16/24 09:02 Duloxetine Hcl 60 Mg Capsule.Dr PO 60 mg DAILY TIFF Administration Enoxaparin Sodium 40 mg 07/09/24 09:00 07/16/24 09:02 Enoxaparin 40 Mg/0.4 Ml Syringe SUB-Q 40 mg DAILY TIFF Administration Glucagon 1 mg 07/08/24 22:18 Glucagon For Inj 1 Mg Vial IM PRN PRN Hypoglycemia Protocol Glucose 15 gm 07/08/24 22:18 Glucose Oral Gel 15 Gm Of Glucse In 37.5 Gm Tube PO PRN PRN Hypoglycemia Protocol Dextrose 1,000 mls @ 100 mls/hr 07/08/24 22:18 Dextrose 5% 1,000 Ml IVPB PRN PRN Hypoglycemia Protocol Cefepime HCl 2 gm in 50 mls @ 100 mls/hr 07/10/24 21:00 07/16/24 09:01 Maxipime 2 Gm/Ns 50 Ml IVPB 100 mls/hr Q12HR TIFF Administration Insulin Aspart 2 - 5 units 07/10/24 08:00 07/16/24 08:56 Insulin Aspart (*Bkc) 100 Units/Ml SUB-Q Not Given TIDWM [facility] Protocol Metronidazole 500 mg 07/10/24 15:00 07/16/24 06:36 Metronidazole 500 Mg Tablet PO 500 mg Q8HR TIFF Administration Ondansetron HCl 4 mg 07/08/24 22:18 Ondansetron Inj 4 Mg/2 Ml Vial IV PUSH Q4H PRN Nausea Potassium Chloride 20 meq 07/10/24 09:00 07/16/24 09:02 Potassium Chloride 20 Meq Er Tablet PO 20 meq DAILY TIFF Administration Trazodone HCl 100 mg 07/09/24 21:00 07/15/24 20:33 Trazodone Hcl 50 Mg Tablet PO 100 mg HS TIFF Administration Radiology Results: ITS Impressions Foot CT 07/08/24 19:41 IMPRESSION: Tract of fluid attenuation within the area of clinical concern, as detailed above. The entirety of this collection is likely visible with ultrasound, if needed for drainage. Soft Tissue Ultrasound 07/09/24 20:25 IMPRESSION: 1. Soft tissue swelling with heterogeneous echogenicity involving the plantar aspect of the forefoot centered at the base of the fourth digit correlating with the CT abnormality, consistent with inflammation/infection and necrosis. No significant drainable fluid collection. Note that non-drainable necrosis and abscess can have the same appearance by CT. Foot X-Ray 07/10/24 19:35 IMPRESSION: As above. Ankle Brachial Index 07/10/24 20:09 IMPRESSION: Markedly diminished toe brachial index bilaterally. Normal MONIKA bilaterally Labs Labs: Laboratory Results - last 24 hr 07/15/24 07/15/24 07/15/24 12:17 17:00 23:01 WBC RBC Hgb Hct MCV MCH MCHC RDW Plt Count MPV Immature Gran % (Auto) Neut % (Auto) Lymph % (Auto) [place] % (Auto) Eos % (Auto) Baso % (Auto) Lymph # (Auto) [place] # (Auto) Eos # (Auto) Baso # (Auto) Abs Immat Gran (auto) Absolute Neuts (auto) Absolute Nucleated RBC Nucleated RBC % Sodium Potassium Chloride Carbon Dioxide Anion Gap BUN Creatinine Estim Creat Clear Calc Estimated GFR Glucose POC Capillary Glucose 89 116 H 134 H Calcium Magnesium Total Bilirubin AST ALT Alkaline Phosphatase Total Protein Albumin 07/16/24 07/16/24 05:48 08:49 WBC 8.0 RBC 3.48 L Hgb 10.6 L Hct 32.8 L MCV 94.3 MCH 30.5 MCHC 32.3 RDW 14.6 H Plt Count 358 MPV 8.7 Immature Gran % (Auto) 1.1 H Neut % (Auto) 59.7 Lymph % (Auto) 26.2 [place] % (Auto) 9.3 H Eos % (Auto) 3.3 Baso % (Auto) 0.4 Lymph # (Auto) 2.09 [place] # (Auto) 0.7 H Eos # (Auto) 0.3 Baso # (Auto) 0.0 Abs Immat Gran (auto) 0.09 H Absolute Neuts (auto) 4.8 Absolute Nucleated RBC 0.000 Nucleated RBC % 0.0 Sodium 140 Potassium 4.3 Chloride 108 H Carbon Dioxide 29 Anion Gap 3 L BUN 6 L Creatinine 0.52 L Estim Creat Clear Calc 90 Estimated GFR > 60 Glucose 102 POC Capillary Glucose 97 Calcium 8.2 L Magnesium 2.2 Total Bilirubin 0.4 AST 29 ALT 24 Alkaline Phosphatase 92 Total Protein 6.0 L Albumin 2.8 L
[2024-07-16 11:51] LABS: Glucose Point of Care 111 mg/dl (65-105)
[2024-07-16 14:00] VITALS: BP 140/49; PULSE 70; RESP 18; TEMP 36.2; O2SAT 94
--- NOTE | 2024-07-16 14:07 | P.PNIM_ITS ---
Progress Note: A&P Assessment and Plan (1) Depression with anxiety: Code(s): F41.8 - Other specified anxiety disorders Status: Acute (2) Hypertension: Code(s): I10 - Essential (primary) hypertension Status: Acute (3) Hyperlipidemia: Code(s): E78.5 - Hyperlipidemia, unspecified Status: Acute (4) Diabetic foot infection: Code(s): E11.628 - Type 2 diabetes mellitus with other skin complications; L08.9 - Local infection of the skin and subcutaneous tissue, unspecified Status: Acute (5) Type 2 diabetes mellitus: Qualifiers: Diabetes mellitus complication detail: with polyneuropathy Diabetes mellitus complication status: with neurologic complications Diabetes mellitus director long term care insulin use: without longterm use Qualified Code(s): E11.42 - Type 2 diabetes mellitus with diabetic polyneuropathy Code(s): E11.9 - Type 2 diabetes mellitus without complications Status: Acute (6) CHRISTIANA (acute kidney injury): Code(s): N17.9 - Acute kidney failure, unspecified Status: Acute (7) Hypokalemia: Code(s): E87.6 - Hypokalemia Status: Acute (8) Cellulitis and abscess of toe of right foot: Code(s): L03.031 - Cellulitis of right toe; L02.611 - Cutaneous abscess of right foot Status: Acute (9) Osteomyelitis of fourth toe of right foot: Code(s): M86.9 - Osteomyelitis, unspecified Status: Acute (10) Ulcer of foot due to type 2 diabetes mellitus: Code(s): E11.621 - Type 2 diabetes mellitus with foot ulcer; L97.509 - Non-pressure chronic ulcer of other part of unspecified foot with unspecified severity Status: Acute Plan Osteomyelitis of fourth toe of right foot: Code(s): M86.9 - Osteomyelitis, unspecified Status: Acute Assessment and Plan: * 07/13 amputation * 07/14 continue postop cefepime, flagyl * cultrue with MSSA. oral antibiotics augmentin at dishcarge * after dressing change per Dr. Mcdonnell Ulcer of foot due to type 2 diabetes mellitus: Code(s): E11.621 - Type 2 diabetes mellitus with foot ulcer; L97.509 - Non-pressure chronic ulcer of other part of unspecified foot with unspecified severity Status: Acute Assessment and Plan: * S/p debridement 07/13 * Continue wound care (3) Hypokalemia: Code(s): E87.6 - Hypokalemia Status: Acute Assessment and Plan: replace and monitor corrected CHRISTIANA (acute kidney injury): Code(s): N17.9 - Acute kidney failure, unspecified Status: Acute Assessment and Plan: * Continue to monitor. * Cr/BUN today 1.0/19. * Receiving IVF.RESOLVED (5) Type 2 diabetes mellitus: Qualifiers: Diabetes mellitus complication detail: with polyneuropathy Diabetes mellitus complication status: with neurologic complications Diabetes mellitus longterm insulin use: without longterm use Qualified Code(s): E11.42 - Type 2 diabetes mellitus with diabetic polyneuropathy Code(s): E11.9 - Type 2 diabetes mellitus without complications Status: Acute Assessment and Plan: * A1C 5.2 * Continue SSI * 05/04 FBS 113 c/w home meds at dc (6) Hypertension: Code(s): I10 - Essential (primary) hypertension Status: Acute Subjective Date/time seen: 07/16/24 14:07 Interval history: Patient resting comfortably. Awake and alert. Oriented to person, place and time. Patient has no foot pain and rest. d/c home today with oral Augmentin. Exam Narrative: HEENT: PERRL, sclerae nonicteric, pharyngeal mucosa pink and intact NECK: No JVD CHEST: Clear to auscultation. Normal effort. HEART: NL S1/S2, regular, no murmur ABDOMEN: BS+, soft, nontender, no mass, no bruits EXTREMITIES: No cyanosis, edema, or clubbing or left. RLE with postop dressing in place. Dressing is dry and clean NEUROLOGIC: CN intact and symmetric to inspection. MUSCULOSKELETAL: Tone and strength symmetric. PSYCH: Alert. Oriented to person, place, and time. Objective Data Vital Signs Vital Signs: Vital Signs - 24 hr 07/15/24 14:32 07/15/24 20:00 07/15/24 22:00 Temperature 97.9 F 97.0 F L Pulse Rate 72 56 L Respiratory Rate 18 20 Blood Pressure 135/62 111/43 L Pulse Oximetry 97 98 Oxygen Delivery Room Air 07/16/24 06:00 Temperature 97.2 F L Pulse Rate 64 Respiratory Rate 16 Blood Pressure 131/70 Pulse Oximetry 95 Oxygen Delivery Intake/Output Intake/Output: Intake & Output 07/13/24 07/14/24 07/15/24 07/16/24 23:59 23:59 23:59 23:59 Intake Total 2940 1750 1360 840 Balance 2940 1750 1360 840 Meds/Results Medications: Active Medications Generic Name Dose Route Start Last Admin Trade Name Freq PRN Reason Stop Dose Admin Acetaminophen 1,000 mg 07/08/24 22:18 07/15/24 20:33 Acetaminophen 500 Mg Tablet PO 1,000 mg Q6H PRN Administration Mild Pain (1-3) or Fever Hydrocodone Bitart/Acetaminophen 1 tab 07/13/24 20:33 07/14/24 16:09 Hydrocodone/Acetaminophen (*Crx) 5-325 Mg Tablet PO 1 tab Q4H PRN Administration Pain Rated 4-6 Alprazolam 1 mg 07/09/24 03:06 07/15/24 21:27 Alprazolam (*Crx) 0.5 Mg Tablet PO 1 mg BID PRN Administration Anxiety Amoxicillin/Clavulanate Potassium 1 tablet 07/16/24 21:00 Amoxicillin/Clavulanate K 875-125 Mg Tab PO 07/26/24 23:59 Q12HR TIFF Atenolol 50 mg 07/10/24 21:00 07/15/24 20:34 Atenolol 50 Mg Tablet PO 50 mg QHS TIFF Administration Atorvastatin Calcium 40 mg 07/09/24 21:00 07/15/24 20:34 Atorvastatin 40 Mg Tablet PO 40 mg HS TIFF Administration Dextrose 12.5 gm 07/08/24 22:18 Dextrose 50% 25 Gm/50 Ml Syringe IV PUSH PRN PRN Hypoglycemia Protocol Duloxetine HCl 60 mg 07/09/24 09:00 07/16/24 09:02 Duloxetine Hcl 60 Mg Capsule.Dr PO 60 mg DAILY TIFF Administration Enoxaparin Sodium 40 mg 07/09/24 09:00 07/16/24 09:02 Enoxaparin 40 Mg/0.4 Ml Syringe SUB-Q 40 mg DAILY TIFF Administration Glucagon 1 mg 07/08/24 22:18 Glucagon For Inj 1 Mg Vial IM PRN PRN Hypoglycemia Protocol Glucose 15 gm 07/08/24 22:18 Glucose Oral Gel 15 Gm Of Glucse In 37.5 Gm Tube PO PRN PRN Hypoglycemia Protocol Dextrose 1,000 mls @ 100 mls/hr 07/08/24 22:18 Dextrose 5% 1,000 Ml IVPB PRN PRN Hypoglycemia Protocol Insulin Aspart 2 - 5 units 07/10/24 08:00 07/16/24 13:20 Insulin Aspart (*Bkc) 100 Units/Ml SUB-Q Not Given TIDWM TIFF Protocol Ondansetron HCl 4 mg 07/08/24 22:18 Ondansetron Inj 4 Mg/2 Ml Vial IV PUSH Q4H PRN Nausea Potassium Chloride 20 meq 07/10/24 09:00 07/16/24 09:02 Potassium Chloride 20 Meq Er Tablet PO 20 meq DAILY TIFF Administration Trazodone HCl 100 mg 07/09/24 21:00 07/15/24 20:33 Trazodone Hcl 50 Mg Tablet PO 100 mg HS TIFF Administration Radiology Results: ITS Impressions Foot CT 07/08/24 19:41 IMPRESSION: Tract of fluid attenuation within the area of clinical concern, as detailed above. The entirety of this collection is likely visible with ultrasound, if needed for drainage. Soft Tissue Ultrasound 07/09/24 20:25 IMPRESSION: 1. Soft tissue swelling with heterogeneous echogenicity involving the plantar aspect of the forefoot centered at the base of the fourth digit correlating with the CT abnormality, consistent with inflammation/infection and necrosis. No significant drainable fluid collection. Note that non-drainable necrosis and abscess can have the same appearance by CT. Foot X-Ray 07/10/24 19:35 IMPRESSION: As above. Ankle Brachial Index 07/10/24 20:09 IMPRESSION: Markedly diminished toe brachial index bilaterally. Normal MONIKA bilaterally Labs Labs: Laboratory Results - last 24 hr 07/15/24 07/15/24 07/16/24 17:00 23:01 05:48 WBC 8.0 RBC 3.48 L Hgb 10.6 L Hct 32.8 L MCV 94.3 MCH 30.5 MCHC 32.3 RDW 14.6 H Plt Count 358 MPV 8.7 Immature Gran % (Auto) 1.1 H Neut % (Auto) 59.7 Lymph % (Auto) 26.2 [place] % (Auto) 9.3 H Eos % (Auto) 3.3 Baso % (Auto) 0.4 Lymph # (Auto) 2.09 [place] # (Auto) 0.7 H Eos # (Auto) 0.3 Baso # (Auto) 0.0 Abs Immat Gran (auto) 0.09 H Absolute Neuts (auto) 4.8 Absolute Nucleated RBC 0.000 Nucleated RBC % 0.0 Sodium 140 Potassium 4.3 Chloride 108 H Carbon Dioxide 29 Anion Gap 3 L BUN 6 L Creatinine 0.52 L Estim Creat Clear Calc 90 Estimated GFR > 60 Glucose 102 POC Capillary Glucose 116 H 134 H Calcium 8.2 L Magnesium 2.2 Total Bilirubin 0.4 AST 29 ALT 24 Alkaline Phosphatase 92 Total Protein 6.0 L Albumin 2.8 L 07/16/24 07/16/24 08:49 11:47 WBC RBC Hgb Hct MCV MCH MCHC RDW Plt Count MPV Immature Gran % (Auto) Neut % (Auto) Lymph % (Auto) [place] % (Auto) Eos % (Auto) Baso % (Auto) Lymph # (Auto) [place] # (Auto) Eos # (Auto) Baso # (Auto) Abs Immat Gran (auto) Absolute Neuts (auto) Absolute Nucleated RBC Nucleated RBC % Sodium Potassium Chloride Carbon Dioxide Anion Gap BUN Creatinine Estim Creat Clear Calc Estimated GFR Glucose POC Capillary Glucose 97 111 H Calcium Magnesium Total Bilirubin AST ALT Alkaline Phosphatase Total Protein Albumin
--- NOTE | 2024-07-16 14:14 | P.DS_ITS ---
DS: Admitting Diagnosis Discharge Date 07/16/24 Admitting Diagnosis (9) Osteomyelitis of fourth toe of right foot: Code(s): M86.9 - Osteomyelitis, unspecified Status: Acute (10) Ulcer of foot due to type 2 diabetes mellitus: Code(s): E11.621 - Type 2 diabetes mellitus with foot ulcer; L97.509 - Non-pressure chronic ulcer of other part of unspecified foot with unspecified severity Status: Acute DS: Discharge Diagnosis Discharge Diagnosis (1) Depression with anxiety: Code(s): F41.8 - Other specified anxiety disorders Status: Acute (2) Hypertension: Code(s): I10 - Essential (primary) hypertension Status: Acute (3) Hyperlipidemia: Code(s): E78.5 - Hyperlipidemia, unspecified Status: Acute (4) Diabetic foot infection: Code(s): E11.628 - Type 2 diabetes mellitus with other skin complications; L08.9 - Local infection of the skin and subcutaneous tissue, unspecified Status: Acute (5) Type 2 diabetes mellitus: Qualifiers: Diabetes mellitus fdc insulin use: without exterminator termite use Diabetes mellitus complication status: with neurologic complications Diabetes mellitus complication detail: with polyneuropathy Qualified Code(s): E11.42 - Type 2 diabetes mellitus with diabetic polyneuropathy Code(s): E11.9 - Type 2 diabetes mellitus without complications Status: Acute (6) CHRISTIANA (acute kidney injury): Code(s): N17.9 - Acute kidney failure, unspecified Status: Acute (7) Hypokalemia: Code(s): E87.6 - Hypokalemia Status: Acute (8) Cellulitis and abscess of toe of right foot: Code(s): L03.031 - Cellulitis of right toe; L02.611 - Cutaneous abscess of right foot Status: Acute (9) Osteomyelitis of fourth toe of right foot: Code(s): M86.9 - Osteomyelitis, unspecified Status: Acute (10) Ulcer of foot due to type 2 diabetes mellitus: Code(s): E11.621 - Type 2 diabetes mellitus with foot ulcer; L97.509 - Non-pressure chronic ulcer of other part of unspecified foot with unspecified severity Status: Acute DS: Summary Hospital Course Hospital Course: Per H&P 69-year-old female past medical history of diabetic neuropathy, 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 The patient noticed redness and swelling to her right 4th toe today that had progressed up her foot throughout the course of the day stopping just below the ankle. She went to urgent care and was directed to go to the ER for further evaluation. She reported that she has pain that is a 5/10 in intensity that feels like pressure. She denies any sharper stabbing pain in the sole of the foot. She only noticed today a small amount of drainage on her sock. She has not been having any fevers or chills but reports that she has just not felt well for the last 3-4 days. She denies any nausea or vomiting. She reports that she does not have much sensation in her feet. Unfortunately she does walk around the house without shoes from time to time. Her feet are visibly soiled. Her glucoses have been within normal range. Her A1c in the ER was 5.2. In the ER was noted she has some purulent drainage from the sole of her foot and her foot was generally swollen with marked swelling of the 2nd toe with dark discoloration of the top of the toe. Her white count was elevated 18 and her ESR and CRP were markedly elevated. Stat CT of the foot with contrast what appears like an ulcer to the plantar surface of the forefoot at approximately the 4th metatarsal head that extends caudally and then tracks distal into the toe. The fluid collections most likely abscess and measures 21 x 6 x 26 mm. She was subsequently admitted to the hospital for further evaluation and treatment diabetic cellulitis and abscess of the 4th toe on the right foot. She reports that her mouth is chronically dry. The following med issues have been addressed during hospitalization Osteomyelitis of fourth toe of right foot: Code(s): M86.9 - Osteomyelitis, unspecified Status: Acute Assessment and Plan: * 07/13 amputation * 07/14 continue postop cefepime, flagyl * cultrue with MSSA. oral antibiotics augmentin at dishcarge * after dressing change per Dr. Mcdonnell Ulcer of foot due to type 2 diabetes mellitus: Code(s): E11.621 - Type 2 diabetes mellitus with foot ulcer; L97.509 - Non-pressure chronic ulcer of other part of unspecified foot with unspecified severity Status: Acute Assessment and Plan: S/p debridement 07/13 Received wound care (3) Hypokalemia: Code(s): E87.6 - Hypokalemia Status: Acute Assessment and Plan: replace and monitor corrected CHRISTIANA (acute kidney injury): Code(s): N17.9 - Acute kidney failure, unspecified Status: Acute Assessment and Plan: Receiving IVF.RESOLVED (5) Type 2 diabetes mellitus: Qualifiers: Diabetes mellitus complication detail: with polyneuropathy Diabetes mellitus complication status: with neurologic complications Diabetes mellitus exterminator termite insulin use: without exterminator termite use Qualified Code(s): E11.42 - Type 2 diabetes mellitus with diabetic polyneuropathy Code(s): E11.9 - Type 2 diabetes mellitus without complications Status: Acute Assessment and Plan: * A1C 5.2 * Continue SSI * 05/04 FBS 113 c/w home meds at ms (6) Hypertension: Code(s): I10 - Essential (primary) hypertension Status: Acute Time Spent with Patient Time attestation: Total time spent providing and/or coordinating discharge services: Exam Narrative: HEENT: PERRL, sclerae nonicteric, pharyngeal mucosa pink and intact NECK: No JVD CHEST: Clear to auscultation. Normal effort. HEART: NL S1/S2, regular, no murmur ABDOMEN: BS+, soft, nontender, no mass, no bruits EXTREMITIES: No cyanosis, edema, or clubbing or left. RLE with postop dressing in place. Dressing is dry and clean NEUROLOGIC: CN intact and symmetric to inspection. MUSCULOSKELETAL: Tone and strength symmetric. PSYCH: Alert. Oriented to person, place, and time. DS: Data Data Completed and Pending Pending studies at discharge: Pending at discharge 07/13/24 10:24 Surgical [PTH] Routine Labs on day of discharge: Labs from last 24 hours 07/16/24 07/16/24 07/16/24 11:47 08:49 05:48 WBC 8.0 RBC 3.48 L Hgb 10.6 L Hct 32.8 L MCV 94.3 MCH 30.5 MCHC 32.3 RDW 14.6 H Plt Count 358 MPV 8.7 Immature Gran % (Auto) 1.1 H Neut % (Auto) 59.7 Lymph % (Auto) 26.2 [place] % (Auto) 9.3 H Eos % (Auto) 3.3 Baso % (Auto) 0.4 Lymph # (Auto) 2.09 [place] # (Auto) 0.7 H Eos # (Auto) 0.3 Baso # (Auto) 0.0 Abs Immat Gran (auto) 0.09 H Absolute Neuts (auto) 4.8 Absolute Nucleated RBC 0.000 Nucleated RBC % 0.0 Sodium 140 Potassium 4.3 Chloride 108 H Carbon Dioxide 29 Anion Gap 3 L BUN 6 L Creatinine 0.52 L Estim Creat Clear Calc 90 Estimated GFR > 60 Glucose 102 POC Capillary Glucose 111 H 97 Calcium 8.2 L Magnesium 2.2 Total Bilirubin 0.4 AST 29 ALT 24 Alkaline Phosphatase 92 Total Protein 6.0 L Albumin 2.8 L 07/15/24 07/15/24 23:01 17:00 WBC RBC Hgb Hct MCV MCH MCHC RDW Plt Count MPV Immature Gran % (Auto) Neut % (Auto) Lymph % (Auto) [place] % (Auto) Eos % (Auto) Baso % (Auto) Lymph # (Auto) [place] # (Auto) Eos # (Auto) Baso # (Auto) Abs Immat Gran (auto) Absolute Neuts (auto) Absolute Nucleated RBC Nucleated RBC % Sodium Potassium Chloride Carbon Dioxide Anion Gap BUN Creatinine Estim Creat Clear Calc Estimated GFR Glucose POC Capillary Glucose 134 H 116 H Calcium Magnesium Total Bilirubin AST ALT Alkaline Phosphatase Total Protein Albumin Discharge Plan Discharge Attending physician on discharge: Paz Henderson Consulting providers: Lorenzo Tineo Discharging Clinician: Paz Henderson Anticipated Discharge Date/Time: 07/16/24 14:15 Patient Disposition: Home Health Service Activity: may shower, no driving and follow weight bearing status Diet: diabetic Wound Care Instructions: follow printed instructions Discharge Instructions: Care Coordination: Patient to have [facility] for PT/OT eval and treat, and group home. Their phone number is [phone] if you have any questions. They will contact you to schedule their first visit. Orthopedic Recommendations Dr. Lorenzo Tineo [phone] * Change dressing daily. Apply 4x4 plain gauze over incision site, wrap foot with Kerlex and then Coban(loosely). Okay to shower. * Post Op shoe for ambulation. * Elevate. * Follow up 07/27 at 8:30 AM in the [facility] wound clinic. Arrive at 8:00 AM to register at the [facility] main entrance. Registration is located to the left of hospital Entrance 1 doors(lab area) Once registered, use elevators in same lobby to the 2nd floor. Follow signs for the Wound Center. phone number for wound center is [phone] Patient Instructions: Antibiotic Form Patient Language: Sinhala Stand Alone Forms: General Discharge Information Follow-up/Referrals: Lorenzo Tineo MD [Physician] - 07/27/24 8:30 am Discharge Medications: New amoxicillin-pot clavulanate 875-125 mg tablet 1 tablet PO Q12H 14 Days Qty: 28 0RF Continued potassium chloride 20 mEq tablet,ER particles/crystals 20 meq PO DAILY atenolol 50 mg tablet 50 mg PO QHS metformin 500 mg tablet 500 mg PO BID Rx Instructions: Take with meals. alprazolam 1 mg tablet 1 mg PO BID PRN (Reason: Anxiety) duloxetine 60 mg capsule,delayed release(DR/EC) 60 mg PO DAILY atorvastatin 40 mg Tablet 40 mg PO HS trazodone 100 mg Tablet 100 mg PO HS triamterene-hydrochlorothiazid 37.5-25 mg Tablet 1 tablet PO DAILY Date of admission: 07/10/24 15:07 Primary Care Provider: Vashti Butt Admitting Provider: aZ Rodriguez Attending physician on admission: Veronica Grigsby Condition: Stable
== END 2024-07-16 14:54 | disposition home health service (06) | DRG 256 ==
LOC: ANHED 21:51 → ANH3MEDSUR 07-09 07:10 → ANH3MED 07-09 17:30
PROVIDERS: Nurse Practitioner; Nurse Practitioner Adult Health; Nurse Practitioner Family; Orthopaedic Surgery; Admitting Provider Internal Medicine; Emergency Provider Physician Assistant; PCP Internal Medicine Interventional Cardiology; Visit Provider Hospitalist
PROC: 0Y6V0Z0 Detachment at Right 4th Toe, Complete, Open Approach (ICD-10-PCS; principal; 2024-07-13 10:00)
DX: E11.52 Type 2 diabetes mellitus with diabetic peripheral angiopathy with gangrene (principal); I70.261 Atherosclerosis of native arteries of extremities with gangrene, right leg; L02.611 Cutaneous abscess of right foot; M86.9 Osteomyelitis, unspecified; N17.9 Acute kidney failure, unspecified; E11.621 Type 2 diabetes mellitus with foot ulcer; L97.519 Non-pressure chronic ulcer of other part of right foot with unspecified severity; L03.031 Cellulitis of right toe; E11.51 Type 2 diabetes mellitus with diabetic peripheral angiopathy without gangrene; E11.42 Type 2 diabetes mellitus with diabetic polyneuropathy; E11.628 Type 2 diabetes mellitus with other skin complications; E11.69 Type 2 diabetes mellitus with other specified complication; I10 Essential (primary) hypertension; E87.6 Hypokalemia; S93.124A Dislocation of metatarsophalangeal joint of right lesser toe(s), initial encounter; E78.5 Hyperlipidemia, unspecified; M19.90 Unspecified osteoarthritis, unspecified site; F41.9 Anxiety disorder, unspecified; F32.A Depression, unspecified; Z96.653 Presence of artificial knee joint, bilateral; Z96.643 Presence of artificial hip joint, bilateral; Z89.421 Acquired absence of other right toe(s)
CPT/HCPCS: 36415; 73630; 73701; 76882; 80048; 80053; 80202; 82565; 82948; 83036; 83605; 83735; 85025; 85652; 86140; 87040; 87070; 87075; 87181; 87205; 88305; 88311; 93005; 93922; 96361; 96365; 96366; 96367; 96376; 99212; 99285; A9270; G0378; G0463; J0692; J1650; J1836; J2405; J2704; J3010; J3370; J3480; J7030; J7040; J7120; Q9967

== ENCOUNTER 2024-07-31 08:15 | Outpatient (RCR) | payer MEDICARE, SELFPAY ==
--- NOTE | 2024-07-31 09:30 | P.PNOP_ITS ---
Progress Note: A&P Assessment and Plan (1) Diabetic foot infection: Code(s): E11.628 - Type 2 diabetes mellitus with other skin complications; L08.9 - Local infection of the skin and subcutaneous tissue, unspecified Status: Acute Assessment and Plan: 2 weeks, 3 days s/p 4th ray amputation. MSSA. Tolerating oral antibiotics well. Sutures removed. Incision well approximated. Monitor incision daily. Reviewed signs/symptoms to report to the ED or office immediately. Continue post op shoe. Recommended obtaining custom foot orthotics/depth shoes. F/U in the outpatient orthopedic clinic to further discuss hallux valgus correction with Dr. Tineo. Subjective Subjective Date/Time Seen: 07/31/24 09:30 Interval history: 69 year old female follows up in the [facility] wound clinic 2 weeks, 3 days s/p right 4th ray amputation. Patient doing well. Tolerating oral antibiotics well. No new concerns. Review of Systems Review of Systems: All systems reviewed & are unremarkable except as noted in HPI and below Exam Const: General: cooperative and average body habitus Nutritional Appearance: average body habitus Orientation/consciousness: patient oriented x3 Limitations: no limitations Resp: Effort & Inspection: normal respiratory effort and able to speak in complete sentences Cardio: Jugular venous distension: no JVD Extrem: Right lower extremity: foot Details: crepitus, vascular exam Details: dorsalis pedis pulse present (faintly palpable) and motor-sensory exam Details: light-touch abnormal Other: Right foot dressing removed. Incision well approximated. No signs of infection. No redness/warmth. NO drainage. Plantar 4th MTP joint ulcer now well healed. Psych: Mental Status: mental status grossly normal
[2024-07-31 10:41] VITALS: BMI 32.6
== END 2024-10-22 08:10 | disposition home or self-care (01) ==
LOC: ANHWOC 08:15
PROVIDERS: PCP Internal Medicine Interventional Cardiology; Visit Provider Nurse Practitioner Family
DX: L08.9 Local infection of the skin and subcutaneous tissue, unspecified (principal); E11.628 Type 2 diabetes mellitus with other skin complications; Z89.421 Acquired absence of other right toe(s)
CPT/HCPCS: 99213; G0463

== ENCOUNTER 2024-12-12 12:08 | Outpatient (CLI) | payer MEDICARE, SELFPAY ==
--- NOTE | ~2024-12-12 | XR_ITS ---
EXAMINATION: XR lg joint inject/asp w image DATE: 12/12/2024 13:08 INDICATION: Primary osteoarthritis of the right shoulder TECHNIQUE: A time-out was performed to verify the patient's name, date of , and procedure to b e performed. The procedure including the risks, benefits, and alternatives was discussed with the pat ient. Risks discussed included bleeding and infection. The patient understood the risks and agreed to proceed. The skin overlying the rotator cuff interval of the right glenohumeral joint was prepped a nd draped in usual sterile fashion. Anesthetic was administered with 1% lidocaine subcutaneously. A 22 G needle was advanced under fluoroscopic guidance into the joint. Injection of 1 mL of Omnipaque 240 confirmed intra-articular position of the needle. Subsequently, injectate consisting of 5 mm a 4:1 mixture of 1% lidocaine: 80 mg/mL Depo-Medrol for a total dose of 80 mg Depo-Medrol was instilled . Washout of contrast was seen confirming intra-articular administration. The needle was removed and the entry site was cleaned and dressed. There were no immediate complications. Fluoroscopy exposure time was 0.1 minutes. The total number of images was 2. Total DAP was 0.615 mGycm^2 FINDINGS: Real-time fluoroscopy demonstrates the needle in the right glenohumeral joint. Patient's pa in prior to procedure:12/11. Patient's pain following the procedure: 11/10. IMPRESSION: 1. Successful right glenohumeral joint injection of local anesthetic and steroid with mild decrease i n the patient's presenting pain. Reviewed, dictated and finalized at location A. IMPRESSION: 1. Successful right glenohumeral joint injection of local anesthetic and steroi d with mild decrease in the patient's presenting pain.
--- OUTSIDE RECORDS SUMMARY | 2024-12-12 14:10 | XMS_ITS | Referral Summary ---
Author Organization [facility] Medical Office Center Address [address] [place] [address] Care Team Providers Care Ship Mate Name Role Phone Barbara Butt MD Primary Care Provider [phone] Encounters Date Type Department Care Team Description 09/19/2024 10:15 AM CDT Office Visit [facility] Vascular at [address] [place] [address] Misbah Campbell MD Peripheral vascular disease, unspecified (Primary Dx); Primary hypertension; Mixed hyperlipidemia from Last 3 Months Allergies No known active allergies Medications traZODone (DESYREL) 100 mg tablet Take by mouth nightly 5 Active potassium chloride ER 20 mEq CR tablet Take 1 tablet (20 mEq total) by mouth daily 4 Active atenoloL (TENORMIN) 50 mg tablet TAKE 1 TABLET BY MOUTH DAILY. STOP LISINOPRIL / HCTZ 5 Active ALPRAZolam (XANAX) 1 mg tablet 5 Active metFORMIN (GLUCOPHAGE) 500 mg tablet Take 1 tablet (500 mg total) by mouth 2 (two) times a day with meals Active famotidine (PEPCID) 20 mg tablet Take 1 tablet (20 mg total) by mouth 2 (two) times a day Active DULoxetine DR (CYMBALTA) 60 mg capsule Take 1 capsule (60 mg total) by mouth daily Active atorvastatin (LIPITOR) 40 mg tablet Take 1 tablet (40 mg total) by mouth daily Active furosemide (LASIX) 40 mg tablet Take 1 tablet (40 mg total) by mouth 2 (two) times a day Active triamterene-hyd roCHLOROthiazid e 37.5-25 mg per tablet/capsule Take 1 tablet/capsule by mouth daily Active cholecalciferol (VITAMIN D-3) 5,000 unit tablet Active vitamin E acid succinate (vitamin E succinate) 268 mg (400 unit) tablet Take by mouth Active omega 3-mvh-put-fish oil 1,200 (144-216) mg capsule Take by mouth Active ferrous sulfate ER 324 mg (65 mg iron) EC tabletIndicatio ns:Iron Deficiency Anemia Take 65 mg by mouth Active Lacto no.51/B.animali s/inulin (FORTIFY WOMEN PROBIOTIC ORAL) Take by mouth Active magnesium oxide (MAG-OX) 250 mg (150.8 mg elemental) tabletIndicatio ns:hypomagnesem ia 1 tablet (250 mg total) daily Active vitamin B complex capsule Take 1 capsule by mouth daily Active multivit-minera y-tglj-yivuhb tablet Take by mouth Active coQ10, ubiquinol, 100 mg capsule Take by mouth Activ e Active Problems Problem Noted Date Diagnosed Date Peripheral vascular disease, unspecified 025 Assessment & Plan (09/21/2024 12:31 PM CDT): Clinically and based on noninvasive testing no evidence large vessel PVD as she has a palpable pulse in her MONIKA is normal. Has evidence of inframalleolar occlusive disease likely due to diabetes. Can follow up with me as needed. 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 Gender Identity Not on file Sexual Orientation Not on file Last Filed Vital Signs Vital Sign Reading Time Taken Comments Blood Pressure 145/77 09/19/2024 10:38 AM CDT Pulse 57 09/19/2024 10:38 AM CDT Temperature 36.8 C (98.3 F) 04/16/2014 11:29 AM CDT Respiratory Rate - - Oxygen Saturation 99% 09/19/2024 10:38 AM CDT Inhaled Oxygen Concentration - - Weight 86.2 kg (190 lb) 09/19/2024 10:38 AM CDT Height 163.8 cm (5' 4.5) 09/19/2024 10:38 AM CD T Body Mass Index 32.11 09/19/2024 10:38 AM CDT Plan of Treatment Not on file Procedures Procedure Name Priority Date/Time Associated Diagnosis Comments SCREENING MAMMOGRAM 2D BILATERAL Routine 09/15/2017 10:44 AM CDT from Last 3 Months or Most Recently Relevant to Health Maintenance Results * Screening Mammogram 2D Bilateral (09/15/2017 10:44 AM CDT) Anatomical Region Laterality Modality Breast Bilateral Mammography 09/15/2017 10:4 4 AM CDT Impressions 09/15/2017 11:19 AM CDT BI-RAD 1 NEGATIVE There is no mammographic evidence of malignancy. A 1 year screening mammogram is recommended. The patient has been or will be contacted. The patient will be entered into a reminder system with a target due date of 1 year for her next screening exam. Electronically signed by: Yosvany Del Real M.D., md/giuliano:09/15/2017 11:19:41 Engraver: Madison UMANZOR (Jesse)(Satish), [facility] letter sent: Normal Exam Reading location: [facility] BI-RADS: 1 Negative [EOD] Narrative 09/15/2017 11:19 AM CDT - MG BILATERAL DIGITAL SCREENING MAMMOGRAM WITH MEDIOLATERAL OBLIQUE CRANIOCAUDAL: 09/15/2017 The study was acquired using full field digital technology and interpreted from soft copy. CLINICAL: Routine mammogram. Denies any problems today. No personal history of breast cancer. No family history of breast cancer. COMPARISONS: Comparison is made to exams dated: 06/21/2014 mammogram and 04/28/2012 mammogram - [facility]. BREAST TISSUE: The tissue of both breasts is almost entirely fatty. FINDINGS: No significant masses, calcifications, or other findings are seen in either breast. There has been no significant interval change. Procedure Note Provider, MD Ozzie - 11/17/2020 - MG BILATERAL DIGITAL SCREENING MAMMOGRAM WITH MEDIOLATERAL OBLIQUECRANIOCAUDAL: 09/15/2017 The study was acquired using full field digital technology and interpretedfrom soft copy. CLINICAL: Routine mammogram. Denies any problems today. No personalhistory of breast cancer. No family history of breast cancer. COMPARISONS: Comparison is made to exams dated: 06/21/2014 mammogram and 04/28/2012 mammogram - [facility]. BREAST TISSUE: The tissue of both breasts is almost entirely fatty. FINDINGS: No significant masses, calcifications, or other findings areseen in either breast. There has been no significant interval change. IMPRESSION: BI-RAD 1 NEGATIVE There is no mammographic evidence of malignancy. A 1 year screeningmammogram is recommended. The patient has been or will be contacted. The patient will be entered into a reminder system with a target due dateof 1 year for her next screening exam. Electronically signed by: Yosvany Del Real M.D., md/giuliano:09/15/2017 11:19:41 Engraver: Madison UMANZOR (Jesse)(Satish), [facility] letter sent: Normal Exam Reading location: [facility] BI-RADS: 1 Negative [EOD] Barbara Butt MD IMG MAMMO PROCEDURES Final Res ult from Last 3 Months or Most Recently Relevant to Health Maintenance Insurance MEDICARE ADVANTAGE Care Teams Ship Mate Relationship Specialty Start Date End Date Barbara Butt MD [address] [place] [address] PCP - General Internal Medicine 08/27/24
--- OUTSIDE RECORDS SUMMARY | 2024-12-12 14:10 | XMS_ITS | Clinical Summary ---
Author Organization [facility] Address [address] [place] [address] Care Team Providers Care Cook Fruit Name Role Phone Barbara Butt MD Primary Care Provider [phone] Allergies No known active allergies Medications traZODone [...] unit) tablet Take by mouth Active omega 5-vee-lds-fish oil 1,200 (144-216) mg capsule Take by [...] 1 capsule by mouth daily Active multivit-minera s-jypf-vovdjb tablet Take by mouth Active coQ10, ubiquinol, [...] (09/21/2024 12:31 PM CDT): Stable continue Lipitor Encounters Date Type Department Care Team Description 09/19/2024 10:15 AM CDT Office Visit [facility] Medical Group Vascular at [address] [place] [address] Misbah Campbell MD Peripheral vascular disease, unspecified (Primary Dx); Primary hypertension; Mixed hyperlipidemia from Last 3 Months Social History Tobacco Use Types Packs/Day Years Used Date Smoking Tobacco: Unknown Tobacco Cessation:Counseling Given: Not Answered Comments Unknown Sex and Gender Information Value Date Recorded Sex Assigned at Not on file 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 Gender Identity Not on file Sexual Orientation Not on file Obstetrics History Last Filed Vital Signs Vital Sign Reading [...] 09/19/2024 10:38 AM CDT Plan of Treatment Health Maintenance Due Date Last Done Comments Colon Cancer Screening-Colonoscopy 1956 Depression Screening 1956 Fall Risk Assessment 1956 Hepatitis C Screening 1956 Osteoporosis Screening-Bone Density Scan 1956 DTaP/Tdap/Td Vaccine (1 - Tdap) 1967 Hepatitis B Screening 1974 Pneumococcal vaccine 65+ (1 of 1 - PCV) 2006 Zoster Vaccine (1 of 2) 2006 Breast Cancer Screening-Mammogram 09/15/2018 018, 06/21/2014 Well Visit 65+ 2021 Covid-19 Vaccine ( season) 2024 06/12/2021, 10/03/2020, 09/09/2020 Influenza Vaccine (Season Ended) 2025 06/12/20 21, 05/08/2020 Procedures Procedure Name Priority Date/Time Associated Diagnosis [...] by: Yosvany Del Real M.D., md/giuliano:09/15/2017 11:19:41 Machinist Job Setter: Madison Stafford (R)), [facility] letter sent: Normal Exam Reading location: [facility] BI-RADS: 1 Negative [EOD] Narrative [...] dated: 06/21/2014 mammogram and 04/28/2012 mammogram - [facility]. BREAST TISSUE: The tissue of both breasts [...] dated: 06/21/2014 mammogram and 04/28/2012 mammogram - [facility]. BREAST TISSUE: The tissue of both breasts [...] next screening exam. Electronically signed by: Yosvany naranjo:09/15/2017 11:19:41 Machinist Job Setter: Madison Yates RT Elissa)(M), [facility] letter sent: Normal Exam Reading location: [facility] BI-RADS: 1 Negative [EOD] Barbara Butt MD IMG MAMMO PROCEDURES Final Res ult from Last 3 Months or Most Recently Relevant to Health Maintenance [place] [address] [place] [address] MEDICARE ADVANTAGE [facility] MED[facility] Address: [facility] [address] [place] [address] Care Teams Cook Fruit Relationship Specialty Start Date End Date Barbara Butt MD [address] [place] [address] PCP - General Internal Medicine 08/27/24
--- OUTSIDE RECORDS SUMMARY | 2024-12-12 14:10 | XMS_ITS | Data Portability ---
Author Organization [place] [facility], Main Office Address [address] [place] [address] Care Team Providers Care German Instructor Name Role Phone INGRID QUIJANO Primary Care Provider [phone] INGRID QUIJANO Referring Provider TANIKA GALLEGO Primary Care Provider [phone] Assessment Encounter Date Assessment Date Assessment LastModified [...] Details Last Modified Time Details Appointments None recorded. Lab None recorded. Referral None recorded. Procedures cerumen removal (PROC) 2024 025 [email or web address] Not available 15:52:05 Surgeries None recorded. Imaging audiogram + tympanogra m 2024 025 [facility], [address], [address], [place], [address], 15:53:53 XR, hip + pelvis, bilateral, 3 or 4 view 2022 023 [email or web address] [facility] [place], [address], [place], [address], 10:41:15 XR, knee 2022 023 [email or web address] [facility] [place], [address], [place], [address], 3 10:41:15 Medication Orders None recorded. Patient TargetsNo targets recorded. Patient Instructions Encounter Date Encounter Id Patient Instructions Last Modified By Organization Details Last Modified Time 11/14/2024 [id number] She will have an audiogram and tympanogram completed due to hearing loss/tinnitus. We will follow up when results become available. [email or web address] Not available 11/14/2024 15:52:52 Reason for Referral None Reported. Results Created Date Observation Date Name Description Value Unit Range Abnormal Flag Note LastModifiedBy Organization Detail LastModifiedTime 05/25/20 23 XR, knee No observ ation record ed. [email or web address] [facility] [place] [address], [place], [address], 05/25/2023 11:52:15 05/25/20 23 XR, hip + pelvi s, bilat eral, 3 or 4 view No observ ation record ed. [email or web address] [facility] [place] [address], [place], [address], 05/25/2023 11:51:48 Result Notes None recorded. Problems Name Problem SNOMED Code Status Onset Date Resolution Date Notes Provider Name and Address Organization Details Recorded Time Body mass index 30+ - obesity 550581509 Active Not Available [facility] 3 14:09:11 Osteoarthr itis of hip 132292546 Active Not Available [facility] 3 14:09:11 Follow-up orthopedic assessment 841689551 Active Not Available [facility] 3 14:09:11 Pain in limb 46403100 Active Not Available [facility] 3 14:09:11 Sensorineu ral hearing loss of bilateral ears 138217357 Active 2024 ELAYNE Perdue [address], [place], [address] , [employer] 5 15:51:48 Impacted cerumen of bilateral ears 8328760132724 108 Active 2024 ELAYNE Perdue [address] [place], [place], [address] , [employer] 5 15:51:20 Problem Notes None recorded. Medical Equipment None Reported. [...] MOUTH EVERY 12 HOURS UNTIL ALL TAKEN 11/14 completed Not Available Not Available Not Available atorvastati n 20 mg tablet 02/19 [...] Available Not Available atenolol 25 mg tablet 11/14 completed Not Available Not Available Not Available topiramate 25 mg tablet TK 1 T PO BID 02/19 completed Not Available Not Available Not Available potassium chloride ER 10 mEq tablet,exte nded release 11/14 completed Not Available Not Available Not Available phentermine 37.5 mg tablet TK 1 T PO QD 05/25 completed Not Available Not Available Not Available ciprofloxac in 500 mg tablet TK 1 T PO BID 02/19 completed Not Available Not Available Not Available sulfamethox azole 800 mg-trimetho prim 160 mg tablet TAKE 1 TABLET BY MOUTH EVERY 12 HOURS UTNIL GONE 11/14 completed Not Available Not Available Not Available peg-electro lyte solution 420 gram oral solution 02/19 completed Not Available Not Available Not Available oxycodone-a cetaminophe n 5 mg-325 mg tablet TK 1 TO 2 TS PO Q 4 H PRN P 02/19 completed Not Available Not Available Not Available potassium chloride ER 20 mEq tablet,exte nded release(par t/cryst) TAKE 1 TABLET BY MOUTH DAILY WITH FOOD active Not Available Not Available No t Available famotidine 20 mg tablet active Not Available Not Available Not Available gabapentin 800 mg tablet TK 1 T PO Q 8 HOURS 02/19 completed Not Available Not Available Not Available trazodone 100 mg tablet TAKE 2 TABLETS BY MOUTH EVERY DAY AT BEDTIME active Not Available Not Available No t Available hydrocodone 7.5 mg-acetamin ophen 325 mg tablet 02/19 completed Not Available Not Available Not Available cephalexin 500 mg capsule 05/25 completed Not Available Not Available Not Available trazodone 150 mg tablet 02/19 completed Not Available Not Available Not Available lisinopril 10 mg tablet 11/14 completed Not Available Not Available Not Available promethazin [...] lisinopril 10 mg-hydrochl orothiazide 12.5 mg tablet 11/14 completed Not Available Not Available Not Available zolpidem 10 mg tablet 02/19 completed Not Available Not Available Not Available atenolol 50 mg tablet TAKE 1 TABLET BY MOUTH DAILY. STOP LISINOPRI L / HCTZ active Not Available Not Available No t Available phentermine 37.5 mg capsule 11/14 completed Not Available Not Available Not Available amoxicillin 875 mg-potassiu m clavulanate 125 mg tablet TAKE 1 TABLET BY MOUTH EVERY 12 HOURS FOR 14 DAYS 11/14 completed Not Available Not Available Not Available [...] R 1.5 MG UNDER THE SKIN WEEKLY 11/14 completed Not Available Not Available Not Available Trulicity 0.75 mg/0.5 mL subcutaneou s pen injector 11/14 completed Not Available Not Available Not Available OneTouch Ultra Blue Test Strip 02/19 completed Not Available Not Available Not Available Mounjaro 10 mg/0.5 mL subcutaneou s pen injector ADMINISTE R 10 MG UNDER THE SKIN WEEKLY active Not Available Not Available No t Available Vitals Date Recorded Body weight Body mass index (BMI) Body height Body temperature Provider Name and Address Organization Details Last Updated DateTime 11/14/2024 46038.51 g 33.5 kg/m2 162.56 cm 97.7 [degF] Sarah Amos RN [facility] 11/14/2024 15:08:00 Date Recorded Body height Body mass index (BMI) Body weight Provider Name and Address Organization Details Last Updated DateTime 05/25/2023 162.56 cm 31.9 kg/m2 76895.18 g GENNA Felix NE [employer] [facility] 05/25/2023 11:10:12 Social History None recorded. Functional Status Question Answer Note LastModified by Organization D etails LastModified Time What is your level of alcohol consumption? None [email or web address] Information not available 05/25/2023 Mental Status None recorded. Family History Relationship Description Onset Age of this Age Resolved Age Notes LastModified by Organization Details LastModified Time Mother Hypertensive disorder [email or web address] Not available 2022 11:02:47 Mother Diabetes mellitus Not available 2022 11:02:57 Notes:NO ENT Medical History Condition Response ARTHRITIS Y DIABETES, TYPE Y HYPERTENSION Y HIGH CHOLESTEROL / HYPERLIPIDEMIA Y Gynecological HistoryNo gynecological history recorded. Obstetrics History GPAL:G 0 P 0 0 0 0 Past Encounters Encounter ID Performer Location Encounter Start Date Encounter Closed Date Diagnosis/Indication Diagnosis SNOMED-CT Code Diagnosis ICD10 Code Diagnosis Note [id number] Florencio Law MD [facility] [place] [address] [place] [address] 05/25/2023 10:42:22 05/25/2023 11:57:12 History of bilateral total knee replacement 9062488333 620738 Z96.653 History of total hip arthroplasty 7785230687 06 Z96.641 Z96.495 [id number] Jarret Walton MD [facility] [place] [address] [place] [address] 11/14/2024 14:56:58 11/14/2024 15:53:29 Impacted cerumen of bilateral ears 2730360240 099281 H61.23 Cerumen impaction successful ly removed with irrigation Sensorineu ral hearing loss of bilateral ears 326910298 H90.3 Health Concerns Section Related Observation LastModified by Organization Detai ls LastModified Time None Recorded Concern Status LastModified by Organization Details LastModified Time None Recorded Advance Directives Directive None Recorded Payers Encounter Date Sequence Insurance Name Policy Number Policy [place] Covered Member ID [place] Member ID Guarantor Name 05/25/2023 1 [facility] - MEDICARE COMPLETE PLAN 2 (MEDICARE REPLACEMENT HMO) [id number] Kaitlin L Telma [id number] Kaitlin Telma 11/14/2024 1 [facility] - MEDICARE COMPLETE PLAN 2 (MEDICARE REPLACEMENT HMO) [id number] Kaitlin L Telma [id number] Kaitlin Telma Notes Date Note Type Note Provider Name and Address Organization Details Recorded Time 11/14/2024 text/html This patient has a pmhx significant for obesity, OA and anxiety who presents to the office for a bilateral cerumen impaction. She reports use of OTC debrox without relief of symptoms. She reports a hx with tinnitus for many many years that is not bothersome. She has never had an audiogram completed. Sarah Patterson, HOUSEKEEPER/LAUNDRY ASSISTANT [address] [facility], [facility] [address], [place], [address], [place] [facility] [place] [facility] 11/14/2024 15:52:57 OBGyn Episode No OBEpisode recorded.
--- OUTSIDE RECORDS SUMMARY | 2024-12-12 14:11 | XMS_ITS | Continuity of Care Document ---
Author Organization [facility] Address [address] [place] [address] [address] [address] [place] [address] Phone Care Team Providers Care Restaurant Assistant Name Role Phone Tere Boyer Unavailable Unavailable Advance Directives Directive Yes / No Effective Date File Name No Information Encounters Encounter Description Practice Location Reason(s) For Visit Diagnoses Date Provider Providers Copied on Encounter [facility], [address], [place], [place], [id number], [place] tel:[phone] [facility] No Information Dec-2 1-200 0 Rosalind Carranza. [address] , [address], [place], [address], [place]. tel:[phone] Family History Family Member Type Diagnosis Age At Onset No Information Payers Payer name Insurance type Covered republican ID Authoriza tion(s) No Information Social History [...]
== END 2024-12-12 12:09 | disposition home or self-care (01) ==
PROVIDERS: PCP Family Medicine; Visit Provider Physician Assistant Surgical
DX: M19.011 Primary osteoarthritis, right shoulder (principal)
CPT/HCPCS: 20610; 77002; J1010; J2003; Q9966